=== PATIENT | male | born 1965 | race Caucasian/White ===

== ENCOUNTER → 2018-02-10 09:09 | Outpatient (CLI) | payer MEDICARE, MEDICAID, SELFPAY ==
[2018-02-10 12:08] LABS: Absolute Lymphocyte Count 1.87 X10^3/ul (0.83-4.51); Absolute Neutrophil Count 3.9 X10^3/uL (2.0-7.7); Basophil# 0.04 X10^3/uL; Basophil% 0.6 % (0-1); Eosinophil# 0.13 X10^3/uL; Eosinophils% 2.1 % (0-5); Hemoglobin 14.6 g/dl (13.0-16.5); Lymphocyte # 1.87 X10^3/ul (4.0); Lymphocyte % 29.5 % (19-41); Mean Corp Hgb Conc 33.2 g/gl (32-36); Mean Corpuscular Hgb 33.2 pg (27.0-32.0); Mean Platelet Vol. 11.8 fl (6.2-12.0); Monocyte# 0.39 X10^3/uL; Monocyte% 6.2 % (0-10); Neutrophil % 61.6 % (47-70); Platelet Count 189 K/mm3 (150-450); RBC Distribution Width SD 51.3 fl (35.1-43.9); White Blood Count 6.3 K/mm3 (4.4-11.0)
[2018-02-10 12:09] LABS: POSITIVE COUNT NO; POSITIVE DIFFERENTIAL NO; POSITIVE MORPHOLOGY NO
[2018-02-10 12:29] LABS: ALB/GLOB Ratio 1.2 RATIO (0.9-2.4); AST(SGOT) 73 U/L (15-37); Alanine Aminotransfer ALT/SGPT 66 U/L (16-61); Albumin, Serum 3.9 g/dL (3.2-5.0); Alkaline Phosphatase 203 U/L (45-117); BUN 5 mg/dL (7-18); BUN/Creat Ratio 6.8 RATIO (10-20); Chloride 109 mmol/L (98-107); Cholesterol 174 mg/dL (200); Creatinine, Serum 0.74 mg/dL (0.70-1.30); EST Glomerular Filtration Rate 119 mL/min (>60); Est Glom Filt Rate - Afr Amer 144 mL/min (>60); Globulin 3.3 g/dL (2.2-4.2); Glucose 85 mg/dL (74-106); Potassium 3.7 mmol/L (3.5-5.1); Protein, Total 7.2 g/dL (6.4-8.2); Sodium Level 144 mmol/L (136-145); Triglycerides 132 mg/dL
[2018-02-10 12:30] LABS: Anion Gap 8 (5-15); High Density Lipoprotein 71 mg/dL; Very Low Density Lipoprotein 26 mg/dL (5-40)
== END ==
PROVIDERS: Family Provider Family Medicine; PCP Family Medicine; Visit Provider Family Medicine
DX: I10 Essential (primary) hypertension (principal)
CPT/HCPCS: 36415; 80053; 80061; 85025

== ENCOUNTER → 2018-02-17 11:24 | Outpatient (CLI) | payer MEDICARE, MEDICAID, SELFPAY | PROVIDERS: Family Provider Family Medicine; PCP Family Medicine; Visit Provider Family Medicine | DX: Z79.899 Other long term (current) drug therapy (principal) | CPT/HCPCS: 36415 ==

== ENCOUNTER → 2018-05-19 11:14 | Outpatient (CLI) | payer MEDICARE, MEDICAID, SELFPAY ==
[2018-05-19 16:13] LABS: CRP < 2.90 mg/L (0.0-3.0)
[2018-05-19 16:20] LABS: Homocysteine 16.3 umol/L (3.2-10.7)
[2018-05-21 14:46] LABS: Lipoprotein A 548 nmol/L (<75)
== END ==
PROVIDERS: Family Provider Family Medicine; PCP Family Medicine; Visit Provider Family Medicine
DX: I10 Essential (primary) hypertension (principal); I73.9 Peripheral vascular disease, unspecified; T79.6XXS Traumatic ischemia of muscle, sequela
CPT/HCPCS: 36415; 83090; 83695; 86140

== ENCOUNTER → 2018-08-18 11:59 | Outpatient (CLI) | payer MEDICARE, MEDICAID, SELFPAY ==
[2018-08-18 15:56] LABS: Cholesterol 187 mg/dL (200); High Density Lipoprotein 78 mg/dL; Triglycerides 168 mg/dL; Very Low Density Lipoprotein 34 mg/dL (5-40)
[2018-08-18 16:17] LABS: Homocysteine 16.7 umol/L (3.2-10.7)
[2018-08-22 13:52] LABS: Lipoprotein A 404 nmol/L (<75)
[2018-08-23 11:31] LABS: ANTINUCLEAR ANTIBODIES DIRECT Negative (Negative)
== END ==
PROVIDERS: Family Provider Family Medicine; PCP Family Medicine; Visit Provider Family Medicine
DX: I73.9 Peripheral vascular disease, unspecified (principal); E78.89 Other lipoprotein metabolism disorders; E72.11 Homocystinuria; I73.00 Raynaud's syndrome without gangrene
CPT/HCPCS: 36415; 80061; 83090; 83695; 86038; 86225; 86235

== ENCOUNTER → 2018-12-08 08:24 | Outpatient (CLI) | payer MEDICARE, SELFPAY ==
[2018-12-08 12:32] LABS: Absolute Lymphocyte Count 1.48 X10^3/ul (0.83-4.51); Basophil# 0.05 X10^3/uL; Eosinophil# 0.06 X10^3/uL; Eosinophils% 1.2 % (0-5); Hematocrit 42.3 % (40-54); Hemoglobin 13.8 g/dl (13.0-16.5); Lymphocyte # 1.48 X10^3/ul (4.0); Lymphocyte % 29.5 % (19-41); Mean Corp Hgb Conc 32.6 g/gl (32-36); Mean Corpuscular Hgb 32.6 pg (27.0-32.0); Mean Platelet Vol. 11.9 fl (6.2-12.0); Monocyte# 0.48 X10^3/uL; Monocyte% 9.6 % (0-10); Neutrophil # 2.95 X10^3/uL (2.7-7.7); Neutrophil % 58.7 % (47-70); Platelet Count 188 K/mm3 (150-450); RBC Distribution Width CV 13.8 % (11.6-14.6); RBC Distribution Width SD 50.1 fl (35.1-43.9); Red Blood Count 4.23 M/mm3 (4.6-6.2)
[2018-12-08 12:33] LABS: POSITIVE COUNT NO; POSITIVE DIFFERENTIAL NO; POSITIVE MORPHOLOGY NO
[2018-12-08 12:50] LABS: Vitamin B12 550 pg/mL (211-911)
[2018-12-08 12:54] LABS: Homocysteine 13.7 umol/L (3.2-10.7)
[2018-12-08 14:38] LABS: ALB/GLOB Ratio 1.5 RATIO (0.9-2.4); AST(SGOT) 49 U/L (15-37); Alanine Aminotransfer ALT/SGPT 56 U/L (16-61); Albumin, Serum 4.1 g/dL (3.2-5.0); Alkaline Phosphatase 177 U/L (45-117); Anion Gap 10 (5-15); BUN 6 mg/dL (7-18); BUN/Creat Ratio 8.5 RATIO (10-20); CRP < 2.90 mg/L (0.0-3.0); Chloride 111 mmol/L (98-107); Cholesterol 202 mg/dL (200); Creatinine, Serum 0.71 mg/dL (0.70-1.30); EST Glomerular Filtration Rate 124 mL/min (>60); Est Glom Filt Rate - Afr Amer 150 mL/min (>60); Globulin 2.8 g/dL (2.2-4.2); Glucose 85 mg/dL (74-106); High Density Lipoprotein 84 mg/dL; Protein, Total 6.9 g/dL (6.4-8.2); Sodium Level 147 mmol/L (136-145); Triglycerides 237 mg/dL; Very Low Density Lipoprotein 47 mg/dL (5-40)
[2018-12-09 20:09] LABS: Lipoprotein A 483 nmol/L (<75)
== END ==
PROVIDERS: Family Provider Family Medicine; PCP Family Medicine; Visit Provider Family Medicine
DX: I73.9 Peripheral vascular disease, unspecified (principal); E78.89 Other lipoprotein metabolism disorders; I25.10 Atherosclerotic heart disease of native coronary artery without angina pectoris; I10 Essential (primary) hypertension; R74.8 Abnormal levels of other serum enzymes
CPT/HCPCS: 36415; 80053; 80061; 82607; 82746; 83090; 83695; 85025; 86140

== ENCOUNTER → 2019-12-23 08:53 | Outpatient (CLI) | payer MEDICARE, SELFPAY ==
[2019-12-23 12:33] LABS: International Normalized Ratio 2.3; Prothrombin Time (Protime)PT. 25.5 SECONDS (11.7-14.9)
== END ==
PROVIDERS: PCP Family Medicine; Visit Provider Family Medicine
DX: I25.5 Ischemic cardiomyopathy (principal); I25.2 Old myocardial infarction; Z79.01 Long term (current) use of anticoagulants
CPT/HCPCS: 36415; 85610

== ENCOUNTER 2020-01-24 09:57 | Outpatient (RCR) | payer MEDICARE, SELFPAY ==
[2020-01-10 12:18] LABS: Prothrombin Time (Protime)PT. 43.8 SECONDS (11.7-14.9)
[2020-01-10 13:41] LABS: International Normalized Ratio 4.6
[2020-01-18 10:03] LABS: International Normalized Ratio 3.4; Prothrombin Time (Protime)PT. 34.2 SECONDS (11.7-14.9)
[2020-01-24 12:08] LABS: International Normalized Ratio 1.9; Prothrombin Time (Protime)PT. 21.2 SECONDS (11.7-14.9)
== END 2020-02-03 18:00 | disposition home or self-care (01) ==
LOC: MTLAB 09:57
PROVIDERS: PCP Family Medicine; Referring Provider Family Medicine; Visit Provider Family Medicine
DX: I25.5 Ischemic cardiomyopathy (principal); I25.2 Old myocardial infarction
CPT/HCPCS: 36415; 85610

== ENCOUNTER → 2020-01-26 06:41 | Outpatient (CLI) | payer MEDICARE, SELFPAY ==
--- NOTE | 2020-01-26 09:17 | NEURO ---
NCS and/or EMG Patient Report Ordering Doctor: Bud Dave DATE OF SERVICE: 01/26/20 Kareem Sims is a 54-year-old male who presents for electrodiagnostic testing of the right lower limb. He reports numbness between the right knee and right ankle. He has a history of peripheral vascular disease. Electrodiagnostic findings: Right peroneal motor nerve demonstrates normal distal latency, amplitude and conduction velocity. Right tibial motor responses within normal limits. Normal tibial and peroneal F wave. H reflex borderline prolonged on the right side. Sensory responses are within normal limits. On needle EMG, all muscles tested in the right lower limb showed no evidence of denervation with normal motor unit action potentials. No denervation noted in the right lumbar paraspinals. Electrodiagnostic impression: This is a normal electrodiagnostic study in the right lower limb. There is no electrodiagnostic evidence for peripheral neuropathy or lumbosacral radiculopathy. If there are any further questions, please do not hesitate to contact me.
== END ==
LOC: PSN 06:44
PROVIDERS: PCP Family Medicine; Referring Provider Family Medicine; Visit Provider Family Medicine
DX: M79.604 Pain in right leg (principal)
CPT/HCPCS: 95886; 95910

== ENCOUNTER 2020-02-22 09:32 | Outpatient (RCR) | payer MEDICARE, SELFPAY ==
[2020-02-22 09:11] VITALS: BMI 24.5
[2020-02-22 12:53] LABS: International Normalized Ratio 1.4
== END 2020-02-22 18:00 | disposition home or self-care (01) ==
LOC: MTLAB 09:32
PROVIDERS: PCP Family Medicine; Referring Provider Family Medicine; Visit Provider Family Medicine
DX: I25.5 Ischemic cardiomyopathy (principal); I25.2 Old myocardial infarction
CPT/HCPCS: 36415; 85610

== ENCOUNTER → 2020-03-27 06:38 | Outpatient (CLI) | payer MEDICARE, SELFPAY ==
[2020-03-08 15:21] VITALS: BMI 23.6
--- NOTE | 2020-03-27 06:39 | ECHOD_ITS ---
Reason For Study: CAD Procedure This was a 2D Doppler, Color Flow transthoracic echocardiogram. Exam performed in department. Left Ventricle Normal LV size. The estimated ejection fraction is 53 %. No regional wall motion abnormalities noted. Right Ventricle Normal RV size. ICD or pacer leads identified within the right ventricle. Normal systolic function. Atria Normal left atrium. Normal right atrium. Mitral Valve Normal mitral valve. Mild (1+) eccentric mitral valve insufficiency. Tricuspid Valve Normal tricuspid valve. Aortic Valve Normal aortic valve. Pulmonic Valve Normal pulmonic valve. Great Vessels Normal aortic root. The pulmonary artery is normal size. Normal inferior vena cava. Pericardium/Pleural No pericardial effusion. MMode/2D Measurements & Calculations LVIDd: 4.4 cm IVSd: 1.1 cm LA dimension: 3.6 cm LVIDs: 2.6 cm LVPWd: 1.3 cm FS: 40.7 % LAV(MOD-bp): 37.7 ml LA A4 area: 15.4 cm2 RA A4 area: 11.3 cm2 LAV(MOD-bp) Indexed: 20.4 ml/m2 LAV(MOD-sp2): 35.9 ml LAV(MOD-sp4): 35.9 ml Time Measurements MV dec time: 0.24 sec Doppler Measurements & Calculations MV E max alli: 72.5 cm/sec Lat Peak E' Alli: 10.3 cm/sec Med Peak E' Alli: 9.2 cm/sec MV A max alli: 88.7 cm/sec E/E' lat: 7.1 E/E' med: 7.9 MV E/A: 0.82 MV V2 max: 90.6 cm/sec MV P1/2t max alli: 71.2 cm/sec Ao V2 max: 127.1 cm/sec MV max P.3 mmHg MV P1/2t: 67.3 msec Ao max P.5 mmHg MV V2 mean: 49.2 cm/sec MV dec slope: 309.6 cm/sec2 MV mean P.1 mmHg MVA(P1/2t): 3.3 cm2 MV V2 VTI: 21.4 cm LV V1 max: 121.9 cm/sec PA V2 max: 102.1 cm/sec LV V1 max P.9 mmHg Interpretation Summary Normal LV size. The estimated ejection fraction is 53 %. No regional wall motion abnormalities noted. The study was technically difficult. Ordering Physician: Ángel Marley Referring Physician: Ángel Marley Performed By: Basim Tierney RCS
--- NOTE | 2020-03-27 11:46 | STRESSREP ---
Stress Test Report Pharmacologic myocardial perfusion stress test. 54-year-old male with a history of ischemic cardiomyopathy, peripheral vascular disease, hypertension status post defibrillator implantation. Stress protocol: Resting EKG demonstrates normal sinus rhythm with a rate of 71 bpm normal intervals are noted resting blood pressure is 148/90 mmHg. 0.4 mg of regadenoson was infused per usual protocol followed by rapid intravenous saline flush injection continuous EKG monitoring was performed. The maximum heart rate attained was 106 bpm which was 63% of maximum predicted heart rate the maximum workload was 1 metabolic equivalent. Patient maintained sinus rhythm throughout the recording. The resting blood pressure was 148/90 with a final blood pressure 130/76 mmHg. Pharmacologic myocardial perfusion stress test. 11.9 mCi of technetium 99m sestamibi was injected at rest. 0.4 mg of regadenoson was infused per usual protocol peak infusion 34.2 mCi of technetium 99m sestamibi was injected stress images were obtained stress and rest images were reconstructed and compared in the short axis vertical long horizontal long axis. Gated images were also obtained per Perfusion SPECT analysis: Review of the images demonstrate normal perfusion noted in the septum anterior wall and lateral wall. There is reduced perfusion noted on the stress images in the inferior wall which improves on the resting images suggesting a moderate amount of inferior ischemia. Gated SPECT analysis: The gated ejection fraction is noted to be 63%. Conclusion: Abnormal pharmacologic myocardial perfusion stress test with evidence of inferior ischemia moderate. Preserved ejection fraction.
== END ==
LOC: CVS 06:39
PROVIDERS: PCP Family Medicine; Referring Provider Internal Medicine Cardiovascular Disease; Visit Provider Internal Medicine Cardiovascular Disease
DX: I25.10 Atherosclerotic heart disease of native coronary artery without angina pectoris (principal); E72.11 Homocystinuria; I73.9 Peripheral vascular disease, unspecified; I10 Essential (primary) hypertension; I47.2 Ventricular tachycardia; I25.5 Ischemic cardiomyopathy; Z95.5 Presence of coronary angioplasty implant and graft; Z95.810 Presence of automatic (implantable) cardiac defibrillator; Z79.01 Long term (current) use of anticoagulants
CPT/HCPCS: 78452; 93017; 93306; A9500; A4216; J2785

== ENCOUNTER 2020-03-30 06:42 | Day surgery (SDC) | payer MEDICARE, SELFPAY ==
[2020-03-08 15:21] VITALS: BMI 23.6
--- NOTE | 2020-03-29 08:53 | RAD_ITS ---
STUDY: X-RAY CHEST REASON FOR EXAM: Male, 54 years old. Abnormal stress, CAD, dyspnea TECHNIQUE: PA and lateral views of the chest. COMPARISON: None. FINDINGS: Satisfactory appearance of a left subclavian pacemaker The lungs are clear and expanded. There is no demonstrated pleural abnormality. There are scattered calcified granulomata. Normal size heart. Normal mediastinum and kelly. Normal visualized pulmonary arteries. Normal visualized aortic arch and descending thoracic aorta. Normal visualized thoracic spine. Normal visualized ribs, clavicles, and shoulders. There is no demonstrated abnormality of the visualized soft tissue structures of the upper abdomen. RAD/Chest PA and Lateral IMPRESSION: No acute pulmonary process Electronically Signed: Tunde Magallon MD at 9:04 EDT , Service support ,
[2020-03-29 09:17] LABS: Hematocrit 41.5 % (40-54); Hemoglobin 13.9 g/dL (13.0-16.5); Mean Corp Hgb Conc 33.5 g/dL (32-36); Mean Corpuscular Volume 95.6 fL (80-94); Mean Platelet Vol. 11.9 fl (6.2-12.0); Platelet Count 217 K/mm3 (150-450); RBC Distribution Width CV 15.9 % (11.6-14.6); RBC Distribution Width SD 56.6 fl (35.1-43.9); Red Blood Count 4.34 M/mm3 (4.6-6.2); White Blood Count 8.3 K/mm3 (4.4-11.0)
[2020-03-29 09:27] LABS: International Normalized Ratio 1.4; Prothrombin Time (Protime)PT. 16.5 SECONDS (11.7-14.9)
[2020-03-29 09:48] LABS: Anion Gap 7 (5-15); BUN 7 mg/dL (7-18); BUN/Creat Ratio 9.2 RATIO (10-20); Calcium,Total 9.3 mg/dL (8.5-10.1); Chloride 106 mmol/L (98-107); Creatinine, Serum 0.76 mg/dL (0.70-1.30); EST Glomerular Filtration Rate 114 mL/min (>60); Est Glom Filt Rate - Afr Amer 138 mL/min (>60); Glucose 102 mg/dL (74-106); Potassium 3.6 mmol/L (3.5-5.1); Sodium Level 140 mmol/L (136-145)
[2020-03-29 13:26] VITALS: BMI 23.6
[2020-03-30 06:51] LABS: Prothrombin Time Fingerstick 16.7 SEC (11.9-14.4)
--- NOTE | 2020-03-30 09:16 | CL.D_ITS ---
Patient Name: MYRIAM LISA Study Date: 03/30/2020 Performing: Ángel Marley MD Ht: 68.11 inches 173 cm : 1965 Wt: 154.32 lbs 70 kg Age: 54 Gender: male BSA: 1.83 PROCEDURE(S) PERFORMED [id number]/COR/LV CLINICAL PROFILE AND INDICATIONS Indications: Suspected CAD Heart Failure: None Stress/Imaging Stress Test w/SPECT MPI: Yes Result: Positive Intermediate RiskStress Test with SP ECT MPI: Positive Intermediate Risk CONCLUSIONS Severe triple-vessel disease involving a totally occluded mid left anterior descending artery, totall y occluded right coronary artery, high-grade circumflex artery disease and mildly reduced left ventri cular systolic function. RECOMMENDATIONS Surgery consult for coronary revascularization DESCRIPTION OF PROCEDURE The patient arrived to the procedure lab. The risks and benefits of the procedure as well as a full d escription of our services here and current unavailability of surgical backup were fully explained to the patient and/or their significant other prior to the catheterization. The Timeout was completed, verifying the correct patient and procedure. The patient's procedural site was prepped and draped in the usual fashion. Local anesthetic was given subcutaneously to right radial region with Lidocaine 2% . Using a modified Seldinger technique, arterial access was obtained via the right radial artery, a 6 Fr sheath was inserted. Left Coronary Artery selective angiography was performed in multiple views u sing a 5 Fr. 4.0 [place] catheter. Right Coronary Artery selective angiography was then performed in mu ltiple views using a 5 Fr. 4.0 [place] catheter. Left Ventriculography was performed in SOARES projection using a 5 Fr. [place] catheter. LV to AO pullback pressures were then recorded.The arterial sheath was pulled and a TR Band was applied for hemostasis. 11cc of air CORONARY ANGIOGRAPHY DOMINANCE: Right Dominant LEFT HEART ASSESSMENT Left Ventricular Ejection Fraction: by LV Gram 45 % Diaphragmatic Hypokinesis - Moderate LEFT MAIN: Angiographically normal LEFT ANTERIOR DESCENDING ARTERY: MID LAD: Previously placed stent is occluded CIRCUMFLEX ARTERY: OM 1: Mid - 85 % Stenosis RIGHT CORONARY ARTERY: PROX RCA: is occluded DISTAL RCA: is occluded COLLATERAL FLOW: Collateral flow from Left to Right COMPLICATIONS No Complications PROCEDURE MEDICATIONS Fentanyl 50 mcg IV Versed 1 mg IV Versed 1 mg IV Oxygen: 2 L/min via nasal cannula Benadryl 25 mg IV @ 03/30/2020 08:18:49 Heparin diluted in 23cc Heparinized saline. Patient given 10cc IA of this solution. 03/30/2020 08:37: 56 Solu-cortef 100 mg IV 03/30/2020 08:18:41 Verapamil 2.5mg, Ntg 100mcgs, 2000 units of Heparin diluted in 23cc Heparinized saline. Patient give n 10cc IA of this solution. 03/30/2020 08:37:56 SUMMARY OF HEMODYNAMIC DATA Time AIR REST ECG 07:19:10 AO 114/77 (94) SA 08:39:14 LV 135/16, 23 08:52:05 LV 132/16, 20 08:52:11 LV 120/19, 24 08:53:03 LVp 127/20, 22 08:53:16 AOp 144/91 (114) 08:53:21 ECG 09:06:59 Signed By Ángel Marley MD On 03/30/2020 9:15:24 AM Ángel Marley MD
== END 2020-03-30 10:51 | disposition home or self-care (01) ==
PROVIDERS: PCP Family Medicine; Referring Provider Internal Medicine Cardiovascular Disease; Visit Provider Internal Medicine Cardiovascular Disease
DX: I25.5 Ischemic cardiomyopathy (principal); I25.10 Atherosclerotic heart disease of native coronary artery without angina pectoris; I25.82 Chronic total occlusion of coronary artery; I25.2 Old myocardial infarction; I10 Essential (primary) hypertension; I73.9 Peripheral vascular disease, unspecified; E72.11 Homocystinuria; M19.90 Unspecified osteoarthritis, unspecified site; K21.9 Gastro-esophageal reflux disease without esophagitis; Z95.810 Presence of automatic (implantable) cardiac defibrillator; Z79.01 Long term (current) use of anticoagulants; Z79.82 Long term (current) use of aspirin; Z79.899 Other long term (current) drug therapy; Z79.02 Long term (current) use of antithrombotics/antiplatelets; Z86.718 Personal history of other venous thrombosis and embolism; Z95.5 Presence of coronary angioplasty implant and graft; Z87.891 Personal history of nicotine dependence
CPT/HCPCS: 36415; 36416; 71046; 80048; 85027; 85610; 93458; 99152; 99153; C1769; C1894; Q9967

== ENCOUNTER 2021-01-20 08:18 | Emergency (ER) | payer OTHER, MEDICARE, SELFPAY ==
[2020-08-30 15:25] VITALS: BMI 23.6
[2021-01-20 08:20] VITALS: BP 121/74; PULSE 98; RESP 17; TEMP 36.6; O2SAT 93; BMI 25.8
--- NOTE | 2021-01-20 08:35 | RAD_ITS ---
STUDY: X-RAY - RIGHT HAND REASON FOR EXAM: Male, 55 years old. Injury/Pain TECHNIQUE: 3 view(s) of the hand. COMPARISON: None. FINDINGS: Normal radiocarpal articulation. Normal distal radioulnar joint. Normal visualized carpal bones. Normal carpal articulations Normal carpometacarpal articulation of the thumb. Normal second through fifth carpometacarpal joints. Normal metacarpi. Normal metacarpophalangeal joint of the thumb. Normal interphalangeal joint of the thumb. Normal proximal and distal phalanges of the thumb. Normal metacarpophalangeal joints of the second through fifth fingers. Normal proximal and distal interphalangeal joints of the second through fifth fingers. Normal phalanges of the second through fifth fingers. The soft tissue structures are unremarkable. RAD/Hand Min 3 Views IMPRESSION: Normal x-ray examination of the hand. Electronically Signed: Remy Mc MD at 9:13 EDT Tel , Service support ,
--- NOTE | 2021-01-20 08:44 | ED.DCSUM_ITS ---
- ER Visit Summary Date of Service: 01/20/21 Chief Complaint: Injury to right hand History of Present Illness: The patient is a [address] Dave. He is right-hand dominant. He reports that yesterday he was walking with his cane when he lost his balance and fell landing on a closed right fist. He denies any blow to the head or loss of consciousness. He is on Eliquis. He denies headache and is adamant that he did not even hit his head. He denies neck, back, shoulder, wrist, or hip pain. Patient reports that he is a sharp pain to his right hand is 9-10 with movement and 4 out of 10 at rest after oxycodone. He denies any paresthesias distally. Physical Examination: Vitals: Stable. Afebrile. Neck: No vertebral tenderness. Full ROM without difficulty. Cleared by NEXUS criteria. Back: No vertebral tenderness. General: A&O x 3. NAD. Cardiovascular exam: Regular rate and rhythm, no murmur, rub or gallop. Respiratory exam: Chest nontender. No crepitus. Clear to auscultation bilaterally. No wheezes or stridor. Abdominal exam: Soft, nontender, nondistended, normal bowel sounds. No pain in RUQ or LUQ specifically. No peritoneal signs. Extremity: Moderate amount of soft tissue swelling to the back of his right hand. He has severe tenderness palpation over the head of the fourth metacarpal and mild tenderness palpation is diffuse over the carpal bones. No pain with axial load of his thumb. He is neurovascular intact distal to this.. Test Results: Right hand x-ray shows no acute disease. Emergency Department Course and Treatment: Patient is resting comfortably and refused pain medications. He was placed in a Velcro splint. Treatment Plan: Patient has pain medication at home does not want or need any further pain medication. He will be discharged instructions to follow-up Dr. Dave in 1 week if not improving. Return to the emergency department for any worsening symptoms. Disposition: To home in improved and stable condition. Impression: 1. Right hand contusion. This note was generated with Yerdleation software. It may contain incorrect words, spelling, and punctuation that were not noted in review of the chart prior to signing ED Disposition - Plan for ED Patient: Instructions: ED Hand Contusion Referrals: Bud Dave DO [Primary Care Provider] - 1 Week if not improving
[2021-01-20 09:30] VITALS: BP 121/74; PULSE 98; RESP 18
== END 2021-01-20 09:31 | disposition home or self-care (01) ==
LOC: ED 09:05
PROVIDERS: Emergency Provider Emergency Medicine; PCP Family Medicine
DX: S60.221A Contusion of right hand, initial encounter (principal); I25.10 Atherosclerotic heart disease of native coronary artery without angina pectoris; W19.XXXA Unspecified fall, initial encounter; Y93.01 Activity, walking, marching and hiking; Z79.01 Long term (current) use of anticoagulants; Z87.891 Personal history of nicotine dependence
CPT/HCPCS: 73130; 99283

== ENCOUNTER 2021-03-07 18:20 | Emergency (ER) | payer OTHER, MEDICARE, SELFPAY ==
[2021-03-07 18:21] VITALS: BP 135/73; PULSE 107; RESP 18; TEMP 36.4; O2SAT 96; BMI 25.0
--- NOTE | 2021-03-07 18:52 | EKG12_ITS ---
Test Reason : DYSRHYTHMIA Blood Pressure : / mmHG Vent. Rate : 101 BPM Atrial Rate : 101 BPM P-R Int : 142 ms QRS Dur : 096 ms QT Int : 348 ms P-R-T Axes : 021 017 043 degrees QTc Int : 451 ms Sinus tachycardia Otherwise normal ECG Confirmed by JAYDE MCQUEEN, ORION ([id number]), publications editor JONH CALHOUN ([id number]) on 03/08/2021 12:57:22 PM Referred By: RUBA Confirmed By:EILEEN DONOHUE MD
--- NOTE | 2021-03-07 18:53 | RAD_ITS ---
INDICATION: sob EXAMINATION/TECHNIQUE: X-RAY - XR Chest 1 View COMPARISON: 03/29/2020. FINDINGS: Left-sided cardiac device. Median sternotomy wires present. Scattered calcified granulomas. The lungs are otherwise clear. The cardiomediastinal silhouette is unremarkable. No pleural effusion or pneumothorax. No acute osseous abnormalities. RAD/Chest 1 View (Portable) IMPRESSION: No acute radiographic abnormalities. Electronically Signed: Lexx Gray MD at 19:30 EDT Tel , Service support ,
--- NOTE | 2021-03-07 18:55 | US_ITS ---
STUDY: VENOUS DOPPLER ULTRASOUND - LEFT LOWER EXTREMITY REASON FOR EXAM: Male, 55 years old. LT LOWER LEG PAIN AND SWELLING TECHNIQUE: Ultrasound evaluation of the deep vein system to include toussaint-scale imaging and compression was performed. Toussaint-scale imaging and Doppler sonographic evaluation, including duplex spectral analysis and qualitative color flow sonography, was performed. COMPARISON: None. FINDINGS: Common Femoral Vein: Normal compression, spontaneity and augmentation. Normal color Doppler. Common Femoral Vein/Greater Saphenous Junction: Normal compression with no internal echoes. Deep Femoral Vein: Not visualized Femoral Proximal: Normal compression Femoral Middle: Normal compression, spontaneity and augmentation. Normal color Doppler. Femoral Distal: Normal compression Popliteal Vein: Normal compression, spontaneity and augmentation. Normal color Doppler. Posterior Tibial Vein: Normal compression Peroneal Vein: Normal compression Positive for thrombosis of the upper to mid lesser saphenous vein of the calf. US/Venous Duplex Imag/Limited/Uni IMPRESSION: Left lower extremity venous DOPPLER exam negative for deep venous thrombosis. Positive for thrombosis of the upper to mid lesser saphenous vein of the calf. Electronically Signed: Karen Laureano MD at 19:54 EDT , Service support ,
[2021-03-07 19:03] LABS: Absolute Lymphocyte Count 1.59 X10^3/uL (0.83-4.51); Absolute Neutrophil Count 11.9 X10^3/uL (2.0-7.7); Basophil# 0.08 X10^3/uL; Basophil% 0.5 % (0-1); Eosinophil# 0.18 X10^3/uL; Eosinophils% 1.2 % (0-5); Hematocrit 31.5 % (40-54); Hemoglobin 9.1 g/dL (13.0-16.5); Lymphocyte # 1.59 X10^3/ul (0.83-4.51); Lymphocyte % 10.8 % (19-41); Mean Corp Hgb Conc 28.9 g/dL (32-36); Mean Corpuscular Hgb 20.7 pg (27.0-32.0); Mean Corpuscular Volume 71.6 fL (80-94); Mean Platelet Vol. 10.4 fl (6.2-12.0); Monocyte# 0.95 X10^3/uL; Monocyte% 6.4 % (0-10); NRBC Flagged by Analyzer 0 % (0-5); Neutrophil # 11.88 X10^3/uL (2.7-7.7); Neutrophil % 80.7 % (47-70); Platelet Count 257 K/mm3 (150-450); RBC Distribution Width CV 19.5 % (11.6-14.6); RBC Distribution Width SD 49.2 fl (35.1-43.9); White Blood Count 14.7 K/mm3 (4.4-11.0)
[2021-03-07 19:18] LABS: Anion Gap 9 (5-15); BUN 6 mg/dL (7-18); BUN/Creat Ratio 10.1 RATIO (10-20); Calcium,Total 8.9 mg/dL (8.5-10.1); Chloride 107 mmol/L (98-107); EST Glomerular Filtration Rate 151 mL/min (>60); Est Glom Filt Rate - Afr Amer 182 mL/min (>60); Estimated Creatinine Clearance 137.75 ml/min; Glucose 90 mg/dL (74-106); Potassium 3.1 mmol/L (3.5-5.1); Sodium Level 141 mmol/L (136-145)
[2021-03-07 19:34] VITALS: PULSE 106; RESP 18; O2SAT 92
--- NOTE | 2021-03-07 21:03 | CT_ITS ---
STUDY: CTA CHEST REASON FOR EXAM: Male, 55 years old. sob RADIATION DOSAGE (If Supplied By Facility): CTDIvol = ( 11.42 ) mGy, DLP = ( ) mGycm TECHNIQUE: The examination was performed with the intravenous administration of IV 100mL Isovue-370. Post-processing of the angiographic images was performed, with multiplanar reformation and 3D reconstruction. Individualized dose optimization techniques were used for this CT. COMPARISON: Chest radiograph 03/07/2021 FINDINGS: Normal enhancement of the main pulmonary artery and right and left pulmonary arteries. Normal enhancement of the bilateral peripheral pulmonary arteries. There is no demonstrated pulmonary embolism. Mild elongation and mild to moderate plaque of the aorta without aneurysm or dissection. Normal cardiac size. Status post prior midline sternotomy. Right ventricular defibrillator lead remains in good position. Small calcified mediastinal lymph nodes. Small calcified hilar lymph nodes. Bullous and centrilobular changes of the upper and midlung zones. Calcified pleural plaque anterior right lung and surface of the right diaphragm.. Scattered pulmonary granulomata. Mild dependent lower lobe atelectasis. Negative for pleural effusion. Normal chest wall structures. Normal osseous structures. No acute findings in the uppermost abdomen. CT/CTA Chest W/WO Contrast IMPRESSION: Negative for pulmonary embolus. Mild atherosclerotic changes of the aorta without aneurysm or dissection. Normal cardiac size without pericardial effusion. Coronary calcifications present. Right ventricular defibrillator lead remains in good position. Status post midline sternotomy. Stigmata of old granulomatous disease with small calcified lymph nodes of the mediastinum and kelly and scattered pulmonary granulomata. Bullous and centrilobular changes of the upper and midlung zones. Calcified pleural plaque on the right. Mild dependent lower lobe atelectatic changes without pleural effusion. No acute osseous findings. No acute findings in the uppermost abdomen. Electronically Signed: Karen Laureano MD at 21:52 EDT , Service support ,
[2021-03-07 21:04] VITALS: PULSE 97; RESP 18; O2SAT 88
[2021-03-07 21:05] VITALS: PULSE 79; RESP 18; O2SAT 95
[2021-03-07] MEDS: Potassium Chloride Oral Tablet 20 MEQ 40 MEQ PO (21:11)
[2021-03-07] MEDS: Furosemide 40 MG Tablet PO (21:12)
--- NOTE | 2021-03-07 21:28 | EX.ED.DYSGE1 ---
HPI History of Present Illness Chief Complaint: Edema Informant: patient Onset/Context/Timing Onset: Weeks Context: Gradual Onset Current Severity: Moderate Maximum Severity: Moderate Narrative Narrative: Patient presents secondary to left lower extremity edema for the past 2 weeks. Today he felt somewhat short of breath. He denies chest pain. Patient has had a right lower extremity amputation. He denies known history of CHF. He states his leg swelling does get better when he elevates his foot at night but is not completely resolved. [facility] Medical History Arthritis Atherosclerosis of coronary artery without angina pectoris Blood in stool Diarrhea Elevated LFTs Essential (primary) hypertension GERD (gastroesophageal reflux disease) Hemorrhoids History of blood clots Hyperhomocysteinemia Ischemia of right lower extremity Ischemic cardiomyopathy Peripheral vascular disease of extremity with claudication Postoperative atrial fibrillation (04/30/20) Recurrent syncope Ventricular tachycardia Home Medications aspirin 81 mg tablet,delayed release 81 mg PO DAILY 02/22/20 [History Last Taken 03/30/20] atorvastatin 80 mg tablet 80 mg PO DAILY 02/22/20 [History Last Taken Unknown] bupropion HCl 150 mg tablet,12 hr sustained-release 150 mg PO DAILY 02/22/20 [History Last Taken Unknown] cilostazol 100 mg tablet 100 mg PO BID 02/22/20 [History Last Taken Unknown] gabapentin 400 mg capsule 600 mg PO TID 02/22/20 [History Last Taken Unknown] diltiazem HCl 90 mg tablet 90 mg PO TID 05/20/20 [History Last Taken Unknown] multivitamin 15 ml PO DAILY ml 05/20/20 [History Last Taken Unknown] omeprazole 20 mg capsule,delayed release 20 mg PO DAILY 05/20/20 [History Last Taken Unknown] apixaban 5 mg tablet 5 mg PO BID 08/30/20 [History Last Taken Unknown] furosemide [Lasix] 40 mg PO DAILY #3 tab 03/07/21 [Rx Last Taken Unknown] oxycodone-acetaminophen 1 tab PO TID PRN PRN 03/07/21 [History Last Taken Unknown] potassium chloride 40 meq PO DAILY #6 tab 03/07/21 [Rx Last Taken Unknown] Allergy/AdvReac Type Severity Reaction Status Date / Time shellfish derived Allergy Severe Swelling Verified 03/07/21 18:56 lorazepam [From Ativan] Allergy NEEDS Verified 03/07/21 18:56 FOLLOW-UP Family History Mother Heart disease Cancer Daughter Hyperhomocysteinemia Daughter Hyperhomocysteinemia Daughter Hyperhomocysteinemia Surgical History H/O coronary artery bypass surgery (04/27/20) History of coronary artery stent placement History of femoropopliteal bypass History of implantable cardiac defibrillator (ICD) (06/19/11) History of left heart catheterization (03/30/20) History of right above knee amputation (05/27/20) History of right below knee amputation (05/17/20) Status post femoral-popliteal bypass surgery Social History Smoking Status: Current some day smoker tobacco type: cigarettes alcohol intake: current alcohol intake frequency: a few times a week Alcohol type: hard liquor substance use type: does not use ROS ROS ED Constitutional Constitutional ED: Denies chills or fever(s) Eyes Eyes: Denies change in vision ENT ENT ED: Denies sore throat Cardiovascular Cardiovascular: Denies chest pain Respiratory/Chest Respiratory/Chest: Reports dyspnea; Denies cough Gastrointestinal Gastrointestinal: Denies abdominal pain, diarrhea, nausea or vomiting Genitourinary Genitourinary ED: Denies dysuria Musculoskeletal Musculoskeletal: Reports other Details: Left leg edema ; Denies back pain Integumentary Denies rash Neurologic Neurologic: Denies headache(s) or weakness Psychiatric Psychiatric: Denies anxiety or depression Endocrine Endocrinology: Denies polydipsia or polyuria Allergic/Immunologic Allergic/Immunologic ED: Denies urticaria EXAM Physical Exam Const Vital Signs: 03/07/21 18:21 03/07/21 19:34 03/07/21 21:04 Temperature 97.6 F L Temperature Source Temporal Pulse Rate 107 H 106 H 97 Respiratory Rate 18 18 18 Blood Pressure 135/73 H Blood Pressure Mean 93 Pulse Ox 96 92 88 Oxygen Delivery Method Room Air Room Air Room Air Oxygen Flow Rate (L/min) 03/07/21 21:05 03/07/21 22:04 Temperature Temperature Source Pulse Rate 79 Respiratory Rate 18 16 Blood Pressure Blood Pressure Mean Pulse Ox 95 94 Oxygen Delivery Method Room Air Nasal Cannula Oxygen Flow Rate (L/min) 1 Positive well nourished and well developed General Appearance ED: well developed HEENT Reports normocephalic and head/scalp atraumatic Eyes PERRL and EOMs intact bilaterally Neck supple Chest Wall inspection of chest normal and palpation of chest normal Resp normal respiratory effort and clear to auscultation bilaterally Cardio regular rate and regular rhythm GI normal to inspection, nondistended, normoactive bowel sounds Palpation: soft Back/Spine no CVA tenderness Extremity Extremity Narrative: 3+ left lower extremity edema. No skin lesions noted. Right lower extremity amputation noted. Neuro oriented x3 and no sensory deficits noted Sensorium / Orientation: alert Motor Exam: strength 5/5 throughout Psych mental status grossly normal Skin no rashes or lesions noted MDM MDM MDM Narrative Medical decision making narrative: EKG, chest x-ray, lab work is obtained. Venous ultrasound of the left lower extremity is obtained. Lab Data Attestation: I reviewed the patient's lab results. Labs: Laboratory Results - last 24 hr 03/07/21 03/07/21 03/07/21 18:41 18:41 18:41 WBC 14.7 H RBC 4.40 L Hgb 9.1 L Hct 31.5 L MCV 71.6 L MCH 20.7 L MCHC 28.9 L RDW Std Deviation 49.2 H RDW Coeff of Valeria 19.5 H Plt Count 257 MPV 10.4 Immature Gran % (Auto) 0.400 Neut % (Auto) 80.7 H Lymph % (Auto) 10.8 L Mcduffie % (Auto) 6.4 Eos % (Auto) 1.2 Baso % (Auto) 0.5 Absolute Neuts (auto) 11.9 H Absolute Lymphs (auto) 1.59 Nucleated RBC % 0 Sodium 141 Potassium 3.1 L Chloride 107 Carbon Dioxide 25.0 Anion Gap 9 BUN 6 L Creatinine 0.60 L Estim Creat Clear Calc 137.75 Est GFR (MDRD) Af Amer 182 Est GFR (MDRD) Non-Af 151 BUN/Creatinine Ratio 10.1 Glucose 90 Calcium 8.9 Troponin I < 0.015 B-Natriuretic Peptide 38.0 Radiography Chest X-Ray - ED: 1 View, Read by ED Physician, Normal, Heart, Lungs and Mediastinum Diagnostic Testing: Radiology Impression Chest X-Ray 06/02/21 18:53 IMPRESSION: No acute radiographic abnormalities. Electronically Signed: Lexx Gray MD at 19:30 EDT Tel , Service support , Venous Duplex 03/07/21 18:55 IMPRESSION: Left lower extremity venous DOPPLER exam negative for deep venous thrombosis. Positive for thrombosis of the upper to mid lesser saphenous vein of the calf. Electronically Signed: Karen Laureano MD at 19:54 EDT , Service support , Chest CTA 03/07/21 21:03 IMPRESSION: Negative for pulmonary embolus. Mild atherosclerotic changes of the aorta without aneurysm or dissection. Normal cardiac size without pericardial effusion. Coronary calcifications present. Right ventricular defibrillator lead remains in good position. Status post midline sternotomy. Stigmata of old granulomatous disease with small calcified lymph nodes of the mediastinum and kelly and scattered pulmonary granulomata. Bullous and centrilobular changes of the upper and midlung zones. Calcified pleural plaque on the right. Mild dependent lower lobe atelectatic changes without pleural effusion. No acute osseous findings. No acute findings in the uppermost abdomen. Electronically Signed: Karen Laureano MD at 21:52 EDT , Service support , EKG Initial EKG: Attestation: I personally reviewed and interpreted this EKG as follows: Interpretation: Sinus Tachycardia (Sinus tach at 101. No acute ischemia.) Treatment and Re-Evaluation Comments:: Venous ultrasound reveals no evidence of DVT but patient does have a superficial clot in his lower leg. He did advise that he missed a few days of his Eliquis as he was waiting for the pharmacy to get it filled for him. Blood work is unremarkable. Chest x-ray shows no obvious infiltrate or effusion. Patient did drop his O2 sats to 88% on room air with good waveform for short time period. He was placed on nasal cannula and sent for CTA of his chest. CT is unremarkable. Patient's been able to be taken off of oxygen and is currently satting 94% on room air. He was given a dose of p.o. Lasix as well as potassium replacement. He will be given 3 additional days of these for home. He will contact his doctor for close follow-up. Discharge Plan Triage Chief Complaint: Edema ED Provider: Nissa Jaramillo Dx/Rx/DC Orders Clinical Impression: Leg edema, left, Acute hypokalemia, Superficial thrombophlebitis of left leg Instructions: ED Hypokalemia, ED Peripheral Edema, Unilateral, ED Thrombophlebitis, Superficial Prescriptions: New furosemide [Lasix] 40 mg tablet 40 mg PO DAILY Qty: 3 RF: 0 potassium chloride 20 mEq tablet extended release 40 meq PO DAILY Qty: 6 RF: 0 No Action atorvastatin 80 mg tablet 80 mg PO DAILY RF: 0 cilostazol 100 mg tablet 100 mg PO BID RF: 0 bupropion HCl 150 mg tablet sustained-release 12 hr 150 mg PO DAILY RF: 0 gabapentin 400 mg capsule 600 mg PO TID RF: 0 aspirin [Adult Aspirin Regimen] 81 mg tablet,delayed release (DR/EC) 81 mg PO DAILY RF: 0 diltiazem HCl 90 mg tablet 90 mg PO TID RF: 0 multivitamin liquid 15 ml PO DAILY RF: 0 omeprazole 20 mg capsule,delayed release(DR/EC) 20 mg PO DAILY RF: 0 apixaban 5 mg tablet 5 mg PO BID RF: 0 oxycodone-acetaminophen 10-325 mg tablet 1 tab PO TID PRN PRN (Reason: PAIN) RF: 0 Primary Care Provider: Bud Dave Referrals: Bud Dave, [Primary Care Provider] - 3-5 Days Disposition Disposition: Home, self care
[2021-03-07 22:04] VITALS: RESP 16; O2SAT 94
[2021-03-07 22:37] VITALS: BP 139/85; PULSE 67; RESP 15; O2SAT 94
== END 2021-03-07 22:37 | disposition home or self-care (01) ==
PROVIDERS: Emergency Provider Emergency Medicine; PCP Family Medicine
DX: R60.0 Localized edema (principal); E87.6 Hypokalemia; I80.02 Phlebitis and thrombophlebitis of superficial vessels of left lower extremity; Z79.899 Other long term (current) drug therapy; Z79.82 Long term (current) use of aspirin
CPT/HCPCS: 71045; 71275; 80048; 83880; 84484; 85025; 93005; 93971; 99284; Q9967; A4216

== ENCOUNTER → 2021-04-12 16:38 | Outpatient (CLI) | payer OTHER, MEDICARE, SELFPAY ==
[2021-04-12 17:44] LABS: Absolute Lymphocyte Count 2.43 X10^3/uL (0.83-4.51); Absolute Neutrophil Count 4.7 X10^3/uL (2.0-7.7); Basophil# 0.09 X10^3/uL; Basophil% 1.1 % (0-1); Eosinophil# 0.24 X10^3/uL; Hematocrit 35.4 % (40-54); Hemoglobin 10.1 g/dL (13.0-16.5); Lymphocyte # 2.43 X10^3/ul (0.83-4.51); Lymphocyte % 30.2 % (19-41); Mean Corp Hgb Conc 28.5 g/dL (32-36); Mean Corpuscular Hgb 20.7 pg (27.0-32.0); Mean Corpuscular Volume 72.4 fL (80-94); Mean Platelet Vol. 11.3 fl (6.2-12.0); Monocyte# 0.56 X10^3/uL; NRBC Flagged by Analyzer 0 % (0-5); Neutrophil % 58.3 % (47-70); Platelet Count 373 K/mm3 (150-450); RBC Distribution Width CV 19.4 % (11.6-14.6); RBC Distribution Width SD 49.1 fl (35.1-43.9); Red Blood Count 4.89 M/mm3 (4.6-6.2); White Blood Count 8.1 K/mm3 (4.4-11.0)
[2021-04-12 18:11] LABS: Anion Gap 7 (5-15); BUN 7 mg/dL (7-18); BUN/Creat Ratio 9.3 RATIO (10-20); Chloride 107 mmol/L (98-107); Creatinine, Serum 0.75 mg/dL (0.70-1.30); EST Glomerular Filtration Rate 115 mL/min (>60); Est Glom Filt Rate - Afr Amer 140 mL/min (>60); Ferritin 7 ng/mL (26-388); Glucose 90 mg/dL (74-106); Iron 15 ug/dL (65-175); Potassium 3.7 mmol/L (3.5-5.1); Sodium Level 139 mmol/L (136-145)
== END ==
PROVIDERS: PCP Family Medicine; Referring Provider Family Medicine; Visit Provider Family Medicine
DX: D64.9 Anemia, unspecified (principal); I10 Essential (primary) hypertension
CPT/HCPCS: 36415; 80048; 82728; 83540; 85025

== ENCOUNTER 2021-05-31 07:07 | Day surgery (SDC) | payer OTHER, MEDICARE, SELFPAY ==
[2021-05-08 09:05] VITALS: BMI 23.1
[2021-05-31] VITALS (7 sets, daily range): BP systolic 132–163; BP diastolic 97–107; PULSE 80–91; RESP 16–18; TEMP 36.1–37.1; O2SAT 96; BMI 22.8
--- NOTE | 2021-05-31 07:55 | PCM.HP.BLA ---
History and Physical Acct:[id number]: MYRIAM LSIA IVRep #:[id number] Provider:Prieto Carmen/Sex: 55/M [facility] Vital Signs 05/08/21 08:45 05/08/21 09:05 Height 5 ft 7 in Weight: 148 lb BMI 25.0 23.1 BP 123/77 H Blood Pressure Location Rt brachial Position Sitting Respiration 16 Intake Visit Reasons: CSCOPE, WEIGHT LOSS Chief Complaint: c-scope consult [employer] Developer Required: No Is patient in pain?: No Allergies shellfish derived Allergy (Severe, Verified 05/08/21 09:07) Swelling lorazepam [From Ativan] Allergy (Verified 05/08/21 09:07) NEEDS FOLLOW-UP Medications aspirin 81 mg tablet,delayed release 81 mg PO DAILY 02/22/20 [History Confirmed 05/08/21] atorvastatin 80 mg tablet 80 mg PO DAILY 02/22/20 [History Confirmed 05/08/21] bupropion HCl 150 mg tablet,12 hr sustained-release 150 mg PO DAILY 02/22/20 [History Confirmed 05/08/21] cilostazol 100 mg tablet 100 mg PO BID 02/22/20 [History Confirmed 05/08/21] gabapentin 400 mg capsule 600 mg PO TID 02/22/20 [History Confirmed 05/08/21] diltiazem HCl 90 mg tablet 90 mg PO TID 05/20/20 [History Confirmed 05/08/21] multivitamin 15 ml PO DAILY ml 05/20/20 [History Confirmed 05/08/21] omeprazole 20 mg capsule,delayed release 20 mg PO DAILY 05/20/20 [History Confirmed 05/08/21] apixaban 5 mg tablet 5 mg PO BID 08/30/20 [History Confirmed 05/08/21] furosemide [Lasix] 40 mg PO DAILY #3 tab 03/07/21 [Rx Confirmed 05/08/21] oxycodone-acetaminophen 1 tab PO TID PRN PRN 03/07/21 [History Confirmed 05/08/21] potassium chloride 40 meq PO DAILY #6 tab 03/07/21 [Rx Confirmed 05/08/21] PFSH Medical History Arthritis Atherosclerosis of coronary artery without angina pectoris Blood in stool Diarrhea Elevated LFTs Essential (primary) hypertension GERD (gastroesophageal reflux disease) Hemorrhoids History of blood clots Hyperhomocysteinemia Ischemia of right lower extremity Ischemic cardiomyopathy Peripheral vascular disease of extremity with claudication Postoperative atrial fibrillation (04/30/20) Recurrent syncope Ventricular tachycardia Surgical History H/O coronary artery bypass surgery (04/27/20) History of coronary artery stent placement History of femoropopliteal bypass History of implantable cardiac defibrillator (ICD) (06/19/11) History of left heart catheterization (03/30/20) History of right above knee amputation (05/27/20) History of right below knee amputation (05/17/20) Status post femoral-popliteal bypass surgery Family History Mother Heart disease Cancer Daughter Hyperhomocysteinemia Daughter Hyperhomocysteinemia Daughter Hyperhomocysteinemia Social History Smoking Status: Current some day smoker tobacco type: cigarettes alcohol intake: current alcohol intake frequency: a few times a week Alcohol type: hard liquor substance use type: does not use HPI HPI HPI: MYRIAM LISA, is a 55 M who presents to the office today with need to schedule diagnostic colonoscopy. They are referred for surgical consultation from Dr. Dave after noting a significant weight loss (approximately 26 pounds in the past year) and iron deficiency anemia. According to Dr. Daev's notes and Mr. Lisa's history, the patient was originally scheduled for colonoscopy in 2019, however, during preprocedure cardiac evaluation he was submitted for cardiac catheterization which uncovered critical coronary stenosis requiring CABG x3 in March 2020. Mr. Phillips states that he was then discharged to home and spent only 3 days at home before he developed ischemic complications to his right lower extremity (previous revascularization via lower extremity bypass in 2014). These ischemic complications ultimately resulted in a right above-knee amputation in May 2020. Patient has had prior colonoscopy which she states was approximately 15 to 20 years ago. The results of the scope are unknown and patient cannot recall any specific findings or follow-up instruction. Patient has no personal history of cancer inflammatory bowel disease, or diverticulitis. Patient has no family history of colon cancer, inflammatory bowel disease, or diverticulitis?but admits the maternal side of this history is somewhat unknown. They describe their bowel habits as frequent loose stools which have been present for the last 10 to 12 years. He also endorses occasional bright red blood per rectum. He attributes this to a history of hemorrhoid disease. He previously underwent excisional hemorrhoidectomy but had recurrence of this disease within 1 year. They do not regularly take fiber supplements. Patient has a history of heartburn/acid reflux. He states this was previously severe but is now well controlled with the use of Nexium and minimizing intake of spicy food. Mr. Lisa states that he overall feels better since his CABG procedure in March 2020. However he does relate occasional fatigue and lightheadedness. He also complains of significant anxiety when he attempts to lie down in the evenings. He states it has been sometime since he has been able to lie flat. Mr. Lisa has a intracardiac defibrillator which was due for a regular maintenance check in February, however he was not able to keep this appointment. He remains anticoagulated with daily apixaban. Patient continues as a every day smoker. He states that he remains on edge/frustrated with ongoing problems related to adapting to his new right lower extremity prosthesis. He believes cessation would be possible if his also joined him in this effort. ROS General General: Yes weight change and fatigue; No appetite, colon cancer, breast cancer or weakness HEENT HEENT: No difficulty swallowing, eye injury, eye surgery, swollen glands or hoarseness Endo Endocrine: No thyroid disease, diabetes mellitus, thyroid cancer, Hair loss, heat intolerance or cold intolerance Skin Skin: No rash or changing moles Breast Breast: No left breast lump, right breast lump, nipple discharge, breast pain, abnormal mammogram, abnormal US or breast enlargement Musc Musculoskeletal: Yes arthritis; No back problems, rheumatoid arthritis, gout or joint pain Cardio Cardiovascular: Yes pacemaker, heart disease, high blood pressure, heart attack and heart stent; No murmur, atrial fibrillation, palpitations, shortness of breat with exertion or chest pain Psych Psychiatric: Yes depression and anxiety; No hearing voices Resp Respiratory: No shortness of breath, No sleep apnea, No cough, No COPD, No asthma, No emphysema and No wheezing Gastro Gastrointestinal: Yes abdominal pain, Yes nausea or vomiting, Yes diarrhea, No constipation, Yes blood in stool, Yes acid reflux, Yes hemorrhoids, No ulcers, No gallbladder problem and No black,tarry stools Eladio Hematologic: Yes blood thinners, No blood disorders, No bleeding, No anemia and Yes blood clots Neuro Neurologic: No system reviewed and no additional complaints, except as documented, No as per HPI, No abnormal gait, No abnormal hearing, No abnormal movements, No abnormal speech, No behavioral changes, No burning sensations, No confusion, No convulsions, No disequilibrium, No dizziness, No localized weakness, No frequent falls, No headache(s), No lack of coordination, No loss of vision, No memory loss, Yes numbness, No other visual disturbances, No radicular pain, No restless legs, No sensory deficit, No syncope, Yes tingling, No tremor(s), No weakness and No other Exam Const General: cooperative, comfortable and no acute distress Nutritional Appearance: thin Orientation: alert and oriented x3 Limitations: physical limitations (Patient is able to ambulate about the exam room with the use of a walker ) Chest Other: Well-healed sternotomy Resp Effort & Inspection: normal respiratory effort and able to speak in complete sentences Auscultation: clear to auscultation bilaterally, no rales, no rhonchi and no wheezes Cardio Rate: regular rate Rhythm: regular rhythm Heart Sounds: S1 normal and S2 normal GI Inspection: normal to inspection, non-distended and no scars Palpation: soft, no hepatosplenomegaly and tender in the RLQ (Mild with deep palpation) Assessment and Plan Assessment and Plan (1) Iron deficiency anemia: Status: Acute Comment: Patient endorses occasional hematochezia which he attributes to hemorrhoids, however, he has experienced new/unexplained weight loss and has mild tenderness to palpation of the right lower quadrant. This will require further endoscopic investigation. Plan - Dr. Clark Dalton MD: I have discussed the above with the patient. I have offered the patient colonoscopy for evaluation. I have explained the risks/benefits of the procedure and described the procedure. I have discussed the risks with the patient, including but not limited to: infection, bleeding, perforation of the GI tract requiring emergency surgery, inability to complete the procedure, injury to any internal organs, complications of anesthesia, etc. - the patient understands and agrees to proceed. We will tentatively plan for May 31, 2021. I have advised him he will need to hold his Eliquis for 48 hours before his procedure in 48 hours after (this was okayed through the patient's vascular surgeon). I have also requested a cardiology evaluation as the patient describes potentially new orthopnea and he is overdue for an ICD interrogation. I have answered all the patient's questions to the patient's satisfaction and the patient has no further questions. The patient has been given instructions for the colon cleansing preparation. Patient Instructions: ?Obtain cardiac clearance?including ICD interrogation (2) Weight loss, abnormal: Status: Acute Plan - Dr. Clark Dalton MD: Same as above I have examined the patient the following changes are noted: Patient had opportunity to visit with cardiology for an interval checkup of his ICD and overall cardiovascular status. His ICD is functioning well and his cardiovascular status is stable. He was given clearance to proceed with endoscopy as described. He confirms today that his prep was completed without issue and his output has been clear. He confirms that he stopped his Eliquis 2 days ago. We will proceed as planned.
[2021-05-31] MEDS: Lactated Ringers 1,000 ML 100 ML IV (08:02)
--- NOTE | 2021-05-31 08:15 | COLBX_PTH ---
PATIENT: MYRIAM LISA IV LOC: EN U#:[id number] AGE/SX: 56/M ROOM: RE05/31/[address]: Dr. Clark Dalton MD : 1965 BED: DIS: 05/31/2021 SPEC #: [id number] RECD: 05/31/21 13:14 STATUS: SONDRA ARIES #: [id number] DAHIANA: 05/31/21 08:[address]: Clark Dalton DEPT: SURGICAL PATHOLOGY RECD BY: Rhea Villeda ENTERED: 05/31/21 13:15 SP TYPE: COLON BX OTHR DR: Dr. Bud Dave DO Tissues: Descending colon Procedures: Surgery Specimen Level IV HEADER OPERATION: Colonoscopy (MAC) PRE-OP DIAGNOSIS: Iron deficiency anemia; weight loss TISSUE SUBMITTED: Junction of descending and sigmoid polyp MICROSCOPIC DIAGNOSIS Junction of descending and sigmoid colon polyp, polypectomy: Tubular adenoma. SJ:jordan 06/01/2021 MICROSCOPIC DESCRIPTION Slides are reviewed. GROSS DESCRIPTION Received in fixative is one container labeled with the patient's name and designated junction of descending and sigmoid polyp. The specimen consists of a escamilla-pink polyp measuring 0.9 x 1 x 0.5 cm. The polyp is bisected and submitted entirely in one cassette. / SJ:jordan 05/31/21 TC:1 CPT: 27721
--- NOTE | 2021-05-31 10:01 | OP.COLON_ITS ---
Patient Name: Kareem Sims Procedure Date: 05/31/2021 7:45 AM Date of : 1965 Age: 56 Procedure: Colonoscopy Indications: Unexplained iron deficiency anemia, Weight loss Providers: Clark Dalton MD Medicines: See the Anesthesia note for documentation of the administered medications Patient Profile: Refer to note in patient chart for documentation of history and physical. Last Colonoscopy: more than 10 years ago. Complications: No immediate complications. Estimated blood loss: Minimal. Procedure: Pre-Anesthesia Assessment: - Prior Anticoagulants: The patient has taken Eliquis (apixaban), last dose was 2 days prior to procedure. - Sedation was administered by an anesthesia professional. The sedation level attained was moderate. After I obtained informed consent, the scope was passed under direct vision. Throughout the procedure, the patient's blood pressure, pulse, and oxygen saturations were monitored continuously. The adult colonoscope was introduced through the anus and advanced to the cecum, identified by the ileocecal valve. The colonoscopy was somewhat difficult due to restricted mobility of the colon. Successful completion of the procedure was aided by performing the maneuvers documented (below) in this report. The patient tolerated the procedure well. During the procedure the patient had to be repositioned. Scope In: 8:21:26 AM Scope Withdrawal Time 0 hours 24 minutes 31 seconds Scope Out: 9:40:19 AM Total Procedure Duration Time 1 hour 18 minutes 53 seconds Findings: Many medium-mouthed diverticula were found in the sigmoid colon. There was no evidence of diverticular bleeding. A 15 mm polyp was found in the proximal sigmoid colon. The polyp was semi-pedunculated. The polyp was removed with a hot snare. Resection and retrieval were complete. internal hemorrhoids and numerous external skin tags Impression: - Moderate diverticulosis in the sigmoid colon. There was no evidence of diverticular bleeding. - One 15 mm polyp in the proximal sigmoid colon, removed with a hot snare. Resected and retrieved. Recommendation: - Discharge patient to home (via wheelchair). - Resume regular diet today. - Resume Eliquis (apixaban) and in 2 days at prior doses in 2 days. Refer to primary physician for further adjustment of therapy. - Repeat colonoscopy in 3 years for surveillance. Procedure Code(s): --- Professional --- 97834, Colonoscopy, flexible; with removal of tumor(s), polyp(s), or other lesion(s) by snare technique Diagnosis Code(s): --- Professional --- D12.5, Benign neoplasm of sigmoid colon D50.9, Iron deficiency anemia, unspecified R63.4, Abnormal weight loss K57.30, Diverticulosis of large intestine without perforation or abscess without bleeding CPT copyright 2017 [employer]. All rights reserved. The codes documented in this report are preliminary and upon barrel filler review may be revised to meet current compliance requirements. Clark Dalton MD 05/31/2021 10:00:54 AM This report has been signed electronically. Number of Addenda: 0 Note Initiated On: 05/31/2021 7:45 AM
--- NOTE | 2021-05-31 10:02 | OP.CCLET_ITS ---
05/31/2021 Bud Dave [address] [place] [address] Re : Colonoscopy procedure for Kareem Sims Dear Dr. Dave This procedure was performed on May. My impressions and recommendations are as follows: Impressions : - Moderate diverticulosis in the sigmoid colon. There was no evidence of diverticular bleeding. - One 15 mm polyp in the proximal sigmoid colon, removed with a hot snare. Resected and retrieved. Recommendations : - Discharge patient to home (via wheelchair). - Resume regular diet today. - Resume Eliquis (apixaban) and in 2 days at prior doses in 2 days. Refer to primary physician for further adjustment of therapy. - Repeat colonoscopy in 3 years for surveillance. My findings are described in the full procedure note, which is enclosed. If I can be of further assistance, please feel free to contact me at Doctor phone number(s): , Work: . Sincerely, Clark Dalton MD 05/31/2021 10:00:54 AM This report has been signed electronically.
== END 2021-05-31 11:44 ==
LOC: EN 07:09 → AC 07:11
PROVIDERS: PCP Family Medicine; Referring Provider Family Medicine; Visit Provider Surgery
PROC: 0DJD8ZZ Inspection of Lower Intestinal Tract, Via Natural or Artificial Opening Endoscopic (ICD-10-PCS; CPT 45378; principal; 2021-05-31 08:10)
DX: D12.5 Benign neoplasm of sigmoid colon (principal); K57.30 Diverticulosis of large intestine without perforation or abscess without bleeding; K64.8 Other hemorrhoids; K64.4 Residual hemorrhoidal skin tags; R63.4 Abnormal weight loss; I25.10 Atherosclerotic heart disease of native coronary artery without angina pectoris; I10 Essential (primary) hypertension; F32.9 Major depressive disorder, single episode, unspecified; E78.00 Pure hypercholesterolemia, unspecified; I73.9 Peripheral vascular disease, unspecified; K21.9 Gastro-esophageal reflux disease without esophagitis; I48.91 Unspecified atrial fibrillation; F17.210 Nicotine dependence, cigarettes, uncomplicated; Z68.22 Body mass index [BMI] 22.0-22.9, adult; Z95.810 Presence of automatic (implantable) cardiac defibrillator; Z95.1 Presence of aortocoronary bypass graft; Z79.82 Long term (current) use of aspirin; Z79.01 Long term (current) use of anticoagulants; Z79.899 Other long term (current) drug therapy; Z89.611 Acquired absence of right leg above knee; Z86.718 Personal history of other venous thrombosis and embolism; M19.90 Unspecified osteoarthritis, unspecified site; D50.9 Iron deficiency anemia, unspecified; Z87.19 Personal history of other diseases of the digestive system; F41.9 Anxiety disorder, unspecified
CPT/HCPCS: 45385; 88305; J7120; J2405

== ENCOUNTER → 2022-08-15 | Outpatient (CLI) | payer MEDICARE, OTHER, SELFPAY ==
[2022-08-15 12:45] LABS: Absolute Lymphocyte Count 2.14 X10^3/uL (0.83-4.51); Absolute Neutrophil Count 6.3 X10^3/uL (2.0-7.7); Basophil# 0.06 X10^3/uL; Basophil% 0.6 % (0-1); Eosinophil# 0.15 X10^3/uL; Eosinophils% 1.6 % (0-5); Hematocrit 49.2 % (40-54); Hemoglobin 16.1 g/dL (13.0-16.5); Lymphocyte # 2.14 X10^3/ul (0.83-4.51); Lymphocyte % 22.7 % (19-41); Mean Corp Hgb Conc 32.7 g/dL (32-36); Mean Corpuscular Hgb 32.4 pg (27.0-32.0); Mean Platelet Vol. 13.6 fl (6.2-12.0); Monocyte% 8.5 % (0-10); NRBC Flagged by Analyzer 0 % (0-5); Neutrophil # 6.25 X10^3/uL (2.7-7.7); Neutrophil % 66.2 % (47-70); Platelet Count 166 K/mm3 (150-450); RBC Distribution Width CV 15.6 % (11.6-14.6); RBC Distribution Width SD 56.7 fl (35.1-43.9); Red Blood Count 4.97 M/mm3 (4.6-6.2); White Blood Count 9.4 K/mm3 (4.4-11.0)
[2022-08-15 13:16] LABS: ALB/GLOB Ratio 1.2 RATIO (0.9-2.4); AST(SGOT) 26 U/L (15-37); Alanine Aminotransfer ALT/SGPT 46 U/L (16-61); Albumin, Serum 3.8 g/dL (3.2-5.0); Alkaline Phosphatase 253 U/L (45-117); Anion Gap 7 (5-15); BUN 9 mg/dL (7-18); BUN/Creat Ratio 12.5 RATIO (10-20); Calcium,Total 9.1 mg/dL (8.5-10.1); Chloride 111 mmol/L (98-107); Cholesterol 222 mg/dL (200); Creatinine, Serum 0.72 mg/dL (0.70-1.30); EST Glomerular Filtration Rate 120 mL/min (>60); Est Glom Filt Rate - Afr Amer 145 mL/min (>60); Globulin 3.3 g/dL (2.2-4.2); Glucose 90 mg/dL (74-106); High Density Lipoprotein 70 mg/dL; PSA,Total - Annual Screen 0.63 ng/mL (0.00-4.00); Potassium 3.9 mmol/L (3.5-5.1); Protein, Total 7.1 g/dL (6.4-8.2); Sodium Level 142 mmol/L (136-145); Triglycerides 242 mg/dL; Very Low Density Lipoprotein 48 mg/dL (5-40)
== END | disposition home or self-care (01) ==
LOC: BFHLAB 08:53
PROVIDERS: PCP Family Medicine; Visit Provider Family Medicine
DX: I25.10 Atherosclerotic heart disease of native coronary artery without angina pectoris (principal); I10 Essential (primary) hypertension; D50.9 Iron deficiency anemia, unspecified; Z12.5 Encounter for screening for malignant neoplasm of prostate
CPT/HCPCS: 36415; 80053; 80061; 84153; 85025; G0103

== ENCOUNTER 2023-07-26 02:09 | Emergency (ER) | payer BC, MEDICARE, SELFPAY ==
[2023-07-26 02:11] VITALS: BP 144/94; PULSE 96; RESP 18; TEMP 36.4; O2SAT 87; BMI 25.6
[2023-07-26] MEDS: HYDROmorphone 1 MG/ML Syringe 2 MG IM (02:46)
[2023-07-26] MEDS: Ondansetron ODT 4 MG Tablet PO (02:46)
--- NOTE | 2023-07-26 03:06 | RAD_ITS ---
INDICATION: pain EXAMINATION/TECHNIQUE: X-RAY - XR Spine Lumbar 2 or 3 Views COMPARISON: No relevant prior comparison study available FINDINGS: VERTEBRAE: There is a compression fracture of L1 with 50% decreased height probably a new fracture. No spondylolisthesis. Preservation of the normal lumbar lordosis. No significant facet arthropathy. DISCS: Disc spaces are maintained. INCLUDED ABDOMEN: Included bowel gas pattern is non-obstructive. RAD/Lumbar Spine 2 or 3 Views IMPRESSION: There is a compression fracture of L1 with 50% decreased height probably a new fracture. Electronically Signed: Bharathi Jay MD at 4:10 EDT ,
--- NOTE | 2023-07-26 04:33 | EX.ED.DYSGE1 ---
HPI History of Present Illness Chief Complaint: Back Informant: patient and spouse/S.O. Narrative Narrative: Patient is a 58-year-old male with past medical history of hypertension tobacco abuse and peripheral vascular disease leading to [id number] amputation of his right leg. Patient states around 5 PM today he lost his balance as he was trying to transfer and fell landing directly on his buttocks. He states that he felt the shockwave go up his entire spine. He reports he is on chronic oxycodone and takes it 2-3 times a day. He states that since the fall he is taking the medication without any symptom improvement. He denies any loss of bowel or bladder control or IV drug use. He states he is on Xarelto but he denies striking his head and he denies any headache change in vision or loss of conscious. He states that because of persistent back pain despite taking his oxycodone at home he presents for evaluation [facility] Medical History (Updated 07/27/23 @ 02:[address] Alvaro Ng, DO) Alcohol use Arthritis Atherosclerosis of coronary artery without angina pectoris Blood in stool Depression Diarrhea DVT (deep venous thrombosis) Easy bruising Elevated LFTs Essential (primary) hypertension Fracture of left hip Gastric reflux GERD (gastroesophageal reflux disease) Hemorrhoids History of blood clots Hyperhomocysteinemia Hypertension Ischemia of right lower extremity Ischemic cardiomyopathy MRSA infection Peripheral vascular disease of extremity with claudication Postoperative atrial fibrillation (04/30/20) Recurrent syncope Smoker Superficial thrombophlebitis of left leg Tobacco abuse Uses wheelchair Ventricular tachycardia Wears dentures Wears glasses Weight loss, abnormal Home Medications aspirin 81 mg tablet,delayed release (Adult Aspirin Regimen) 81 mg PO DAILY 02/22/20 [History Last Taken 03/30/20] atorvastatin 80 mg tablet 80 mg PO DAILY 02/22/20 [History Last Taken Unknown] bupropion HCl 150 mg tablet,12 hr sustained-release 150 mg PO DAILY 02/22/20 [History Last Taken Unknown] multivitamin 1 tab PO DAILY 05/29/21 [History Last Taken Unknown] ferrous gluconate 324 mg (38 mg iron) tablet 324 mg PO BID 02/05/22 [History Last Taken Unknown] rivaroxaban 20 mg tablet 20 mg PO QPM 02/05/22 [History Last Taken Unknown] temazepam 22.5 mg capsule 22.5 mg PO QHS 02/05/22 [History Last Taken Unknown] sertraline 50 mg tablet 50 mg PO DAILY 08/08/22 [History Last Taken Unknown] cilostazol 50 mg tablet 50 mg PO BID 04/07/23 [History Last Taken Unknown] gabapentin 600 mg tablet 600 mg PO TID 04/07/23 [History Last Taken Unknown] omeprazole 40 mg capsule,delayed release 40 mg PO DAILY 04/07/23 [History Last Taken Unknown] oxycodone 10 mg tablet 10 mg PO TID PRN severe pain (scale score 7-10) 04/07/23 [History Last Taken Unknown] oxycodone 30 mg tablet,crush resistant,extended release 12 hr 30 mg PO BID 5 days #10 tabs 07/26/23 [Rx Last Taken Unknown] Allergy/AdvReac Type Severity Reaction Status Date / Time shellfish derived Allergy Severe Swelling Verified 07/26/23 02:10 lorazepam [From Ativan] Allergy NEEDS Verified 07/26/23 02:10 FOLLOW-UP Family History Mother Heart disease Cancer Daughter Hyperhomocysteinemia Daughter Hyperhomocysteinemia Daughter Hyperhomocysteinemia Surgical History H/O coronary artery bypass surgery (04/27/20) History of coronary artery stent placement History of femoropopliteal bypass History of implantable cardiac defibrillator (ICD) (06/19/11) History of left heart catheterization (03/30/20) History of right above knee amputation (05/27/20) History of right below knee amputation (05/17/20) Status post femoral-popliteal bypass surgery Social History (Updated 04/07/23 @ 11:35 by Nichole Coleman) Smoking Status: Current some day smoker tobacco type: cigarettes alcohol intake: current alcohol intake frequency: a few times a week Alcohol type: hard liquor substance use type: does not use caffeine: No ROS ROS ED Constitutional Constitutional ED: Denies chills or fever(s) Eyes Eyes: Denies blurry vision or change in vision ENT ENT ED: Denies sore throat Cardiovascular Cardiovascular: Denies chest pain Respiratory/Chest Respiratory/Chest: Denies cough or dyspnea Gastrointestinal Gastrointestinal: Denies abdominal pain, diarrhea, nausea or vomiting Genitourinary Genitourinary ED: Denies dysuria Musculoskeletal Musculoskeletal: Reports back pain; Denies neck pain Integumentary Denies Abrasions or rash Neurologic Neurologic: Denies headache(s) Hematologic/Lymphatic Hematologic/Lymphatic: Reports easy bleeding and easy bruising EXAM Physical Exam Const Vital Signs: 07/26/23 02:11 Temperature 97.6 F L Temperature Source Temporal Pulse Rate 96 Respiratory Rate 18 Blood Pressure 144/94 H Blood Pressure Mean 110 Pulse Ox 87 Oxygen Delivery Method Room Air Positive well nourished and well developed General Appearance ED: well developed HEENT HEENT Narrative: Normocephalic atraumatic No signs of depressed or basilar skull fracture Eyes PERRL and EOMs intact bilaterally General Eye ED: Negative for pale conjunctiva or scleral icterus Neck supple Neck Narrative: No bony deformity or step-off of the cervical spine no midline pain on palpation Chest Wall palpation of chest normal Resp normal respiratory effort Resp Narrative: Breath sounds are diminished throughout with faint rhonchi in the bilateral bases consistent with history of smoking. No nasal flaring retractions tachypnea or accessory muscle use. Cardio regular rate and regular rhythm Back/Spine Back/Spine Narrative: No bony deformity or step-off of the thoracic or lumbar spine but there is midline pain on palpation along the upper lumbar region. Negative straight leg raise on left. No saddle anesthesia. No clonus or Babinski on left. Left patellar reflex is plus 1 out of 4 I cannot assess clonus Babinski or reflex on the right leg as there is an [id number] amputation. Extremity Extremity Narrative: Chronic right-sided [id number]-[id number]-sptv amputation Neuro oriented x3, CN's II-XII intact bilaterally and no sensory deficits noted Sensorium / Orientation: alert Psych mental status grossly normal Skin Skin Narrative: Chronic stasis changes to the left lower leg consistent history of peripheral vascular disease No abrasions or ecchymosis noted across the low back region. MDM MDM MDM Narrative Medical decision making narrative: Patient presented to the ER with report of mechanical fall so I felt no need for cardiac or syncope work-up. He denies striking his head or any loss of consciousness he has no signs of depressed or basilar skull fracture when he is on a blood thinner. Secondary to this we did discuss potential head CT based on his fall. However as he does not have headache or change in vision and denies striking his head he does not want a head CT obtained as concern for skull fracture and brain bleed is low. With pain in the midline low back as well as a history of falling directly on it there is concern for compression fracture versus burst fracture versus spondylolisthesis. An x-ray was obtained which shows a grade 3 fracture. At this time the patient's fracture is closed and he is neurovascularly intact and therefore do not feel he requires emergent orthopedic/spine consultation. The patient is on oxycodone 2-3 times a day chronically and therefore I will add extended release oxycodone twice a day for improved pain control. The patient understands he needs to follow-up with orthopedic/spine surgery to discuss treatment options such as bracing versus surgical fixation. However at this time as he is closed and neurologically intact there is no need for further work-up and he be discharged home. History & Record Review Discussion w/independent historian: Patient and Significant other Radiography Diagnostic Testing: Clinical Impression(s) from Imaging Studies Lumbar Spine X-Ray 07/26/23 03:06 IMPRESSION: There is a compression fracture of L1 with 50% decreased height probably a new fracture. Electronically Signed: Bharathi Jay MD at 4:10 EDT , X-ray of the lumbar spine as interpreted by the emergency medicine physician reveals a L1 compression fracture considered a grade 3 with a approximately 50% collapse Discharge Plan Triage Chief Complaint: Back ED Provider: Alvaro Ng Dx/Rx/DC Orders Clinical Impression: Closed compression fracture of L1 vertebra, Essential (primary) hypertension, Tobacco abuse, Peripheral vascular disease Instructions: Compression Fx Prescriptions: New oxycodone 30 mg tablet,oral only,ext.rel.12 hr 30 mg PO BID 5 Days Qty: 10 0RF No Action atorvastatin 80 mg tablet 80 mg PO DAILY bupropion HCl 150 mg tablet sustained-release 12 hr 150 mg PO DAILY aspirin [Adult Aspirin Regimen] 81 mg tablet,delayed release (DR/EC) 81 mg PO DAILY ferrous gluconate 324 mg (38 mg iron) tablet 324 mg PO BID Patient Comments: 1 TABLET ORALLY DAILY WITH WATER OR JUICE BETWEEN MEALS temazepam 22.5 mg capsule 22.5 mg PO QHS Xarelto 20 mg tablet 20 mg PO QPM sertraline 50 mg tablet 50 mg PO DAILY gabapentin 600 mg tablet 600 mg PO TID Patient Comments: TAKE 1 TABLET BY MOUTH THREE TIMES A DAY cilostazol 50 mg tablet 50 mg PO BID Patient Comments: TAKE 1 TABLET BY MOUTH TWICE A DAY omeprazole 40 mg capsule,delayed release(DR/EC) 40 mg PO DAILY Patient Comments: TAKE 1 CAPSULE BY MOUTH EVERY DAY oxycodone 10 mg tablet 10 mg PO TID PRN (Reason: severe pain (scale score 7-10)) Patient Comments: 1-1.5 TABLETS BY MOUTH 3 TIMES A DAY NEEDED SEVERE PAIN multivitamin Tablet 1 tab PO DAILY Primary Care Provider: Bud Dave Referrals: Krishna Burns MD [Med Staff - Active Staff] - Bud Dave DO [Primary Care Provider] - Activity Restrictions/Additional Instructions: Continue your normal medication as directed. You have a 50% L1 compression fracture. Secondary to this follow-up with orthopedic/spine surgery to discuss need for treatment options such as bracing versus surgery. Take the extended release oxycodone twice a day but continue your normal oxycodone 2 or 3 times a day for continued pain relief. If you have worsening of symptoms or any further concerns please return for repeat evaluation Disposition Disposition: Home, Self Care Discharge Date/Time: 07/26/23 04:49
[2023-07-26] MEDS: oxyCODONE 5 MG Tablet 10 MG PO (04:46)
== END 2023-07-26 04:49 | disposition home or self-care (01) ==
PROVIDERS: Emergency Provider Emergency Medicine; PCP Family Medicine; Visit Provider Emergency Medicine
DX: S32.019A Unspecified fracture of first lumbar vertebra, initial encounter for closed fracture (principal); I73.9 Peripheral vascular disease, unspecified; I25.10 Atherosclerotic heart disease of native coronary artery without angina pectoris; I10 Essential (primary) hypertension; F17.210 Nicotine dependence, cigarettes, uncomplicated; Z79.82 Long term (current) use of aspirin; Z79.899 Other long term (current) drug therapy; W19.XXXA Unspecified fall, initial encounter; Z86.718 Personal history of other venous thrombosis and embolism; Z95.5 Presence of coronary angioplasty implant and graft
CPT/HCPCS: 72100; 96372; 99283

== ENCOUNTER 2023-09-24 07:30 | Outpatient (RCR) | payer BC, MEDICARE, SELFPAY ==
--- NOTE | 2023-09-16 10:07 | HP.PTEVAL ---
Patient's Visit Information Visit Information Visit Information: MYRIAM LISA IV is a 58 year old M referred to Physical Therapy by Dr. Bud Dave DO with a diagnosis of ABSENCE OF RIGHT LEG ABOVE KNEE. Date of Evaluation: 09/16/23 Physical Therapist: Larry Giron PT, Cert MDT, OCS Visit Plan Frequency: 2x /Week Duration: 4 Weeks Plan: PRECUATION: pacemaker /defibrillator PT INTERVTION PROGRESSIVE GAIT TRAINING WITH NEW PROTHEISIS ,BALANCE PROGRAM ,ENDURANCE PROGRAM AND LEFT LE STRENGTHENING AND AKA HIP STRENGTHENING AND FUNCTIONAL STRENGTHENING Subjective Subjective: This 58 y/o male presents to physical therapy with right AKA. Patient had right AKA 3 years. Patient had a fall ~ 1 year ago and fx left with IM nailing. Patient had Rehab at [facility]. Patient had to learn to walk again. Patient fell again ~ 1month ago caused compression fracture . Patient fell had old knee prosthetic. Patient has new prosthesis and need to learn how to walk and function. Patient has apprehension of falling . Patient has pacemaker/defibrillator. Needs to be replaced Sep 25 at [facility]. 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 Patient uses rollator for gait. Patient becomes tired quickly needs rest. Patient has phantom pain right foot. Patient has trailor 3 steps but has ramp. Patient has walk-in shower with seat. Patient is able to dress and bath. Patient sleeps okay. Patient condition affects QOL and function. Patient goals to walk and increase strength. PRECAUTION: pacemaker /difibulator VOCATION: disabled SOCIAL: Objective Objective: POSTURE: mild forward posture ,prothesis right AKA NEURO: c/o paresthesia/tingling foot ,light touch intact right stump GAIT: ambulates with rollator with right leg prothesis slow claudette forward posture decrease stance time fatigues BALANCE: fair+ with rollator MMT:( peak force) right AKA hip flexion 15.8 ,hip abduction 12.8 ,left hip flexion 17.7 ,hip abduction 13.2, left quads 15.2 ,hamstrings 13.4 Balance/Special Test Scores CATSIB Score (Max score 120 seconds): 30 Lower Extremity Functional Score: 21 Goals Goal 1:: Patient to be I with HEP for legs Goal Time Frame: 4-6 Weeks Goal 2:: Patient to ambulate with improved gait with rollator community distance with prothesis . Goal Time Frame: 4-6 Weeks Goal 3:: Patient to improve peak force of quads/hamstrings left and bilateral hips by 5-10 # strength to improve function. Goal Time Frame: 4-6 Weeks Goal 4:: Patient to improve LFES score by 5 points to improve gait and QOL Goal Time Frame: 4-6 Weeks Goal 5:: Patient to improve CATSIBE by 5 points to improve function and balnce Goal Time Frame: 4-6 Weeks Rehabilitation Potential Physical Therapy Diagnosis: This patient has right AKA with new prothesis which needs to learn how to use and walk along with weakness in left leg impairs function and gait thus benefit from skilled PT Rehabilitation Potential: Good Anticipated Interventions Patient/Client Instruction: Educate patient on: Condition and Plan of Care For the Purpose of:: To improve muscle performance and motor function, To improve ability to perform ADL's, To increase tolerance to activity/condition/position, To improve ability of physical actions for home/community/work/leisure, To improve gait and locomotor functions, To improve endurance, To improve balance, To improve safety with gait and To improve tolerance to ADL's Therapeutic Exercise to Include: Strength training, Endurance training, Balance training, Gait and locomotor training and Active ROM Comment: AKA ,LEFT LE QUADS/HAMS/HIP For the Purpose of:: To increase ROM, To improve muscle performance and motor function, To improve ability to perform ADL's, To increase tolerance to activity/condition/position, To improve performance and independence with ADL's, To improve ability of physical actions for home/community/work/leisure, To improve gait and locomotor functions, To increase flexibility/ROM, To improve endurance, To improve balance, To improve safety with gait and To improve tolerance to ADL's Text: Thank you for the opportunity to evaluate your patient. For Medicare and Medicare HMO plans, please review the plan of care and approve it. It will need to be FAXED BACK to us at [phone] for Medicare purposes. For Medicare only, by signing this I certify the plan of care. Please let me know if there are questions or concerns regarding this plan of care. Physician Signature: Date:
== END 2023-09-24 19:00 | disposition home or self-care (01) ==
LOC: PT 07:30
PROVIDERS: PCP Family Medicine; Referring Provider Family Medicine; Visit Provider Family Medicine
DX: Z89.611 Acquired absence of right leg above knee (principal)
CPT/HCPCS: 97110; 97116; 97162

== ENCOUNTER 2023-09-27 09:08 | Observation (INO) | payer BC, MEDICARE, SELFPAY ==
[2023-09-27] VITALS (9 sets, daily range): BP systolic 155–178; BP diastolic 92–109; PULSE 64–93; RESP 13–18; TEMP 36.2–36.8; O2SAT 92–94; BMI 23.7; BMI 22.4
--- NOTE | 2023-09-27 10:06 | EKG12_ITS ---
Test Reason : DIZZINESS Blood Pressure : / mmHG Vent. Rate : 071 BPM Atrial Rate : 071 BPM P-R Int : 152 ms QRS Dur : 098 ms QT Int : 442 ms P-R-T Axes : 017 -13 053 degrees QTc Int : 480 ms Normal sinus rhythm Cannot rule out Inferior infarct , age undetermined Abnormal ECG Confirmed by ADAMS MCQUEEN, JAE ([id number]), offline editor NILE HERNANDEZ ([id number]) on 10/07/2023 8:49:30 AM Referred By: SHAREE Confirmed By:JAE LAMAS MD
--- NOTE | 2023-09-27 10:18 | CT_ITS ---
HISTORY: dizziness. TECHNIQUE: Multiple axial images were obtained of the head without intravenous contrast. A radiation dose optimization technique was used for this scan. 241 images. COMPARISON: None. FINDINGS: BRAIN PARENCHYMA: No significant attenuation abnormality. No acute intra-axial hemorrhage. CSF SPACES: Cerebral ventricles, cortical sulci, and other extra-axial CSF spaces within normal limits in size for age. No midline shift or other significant mass effect. No acute extra-axial hemorrhage. OTHER: Intact calvarium. No significant air fluid levels in the paranasal sinuses or mastoid air cells. Unremarkable orbits. CT/Brain/Head without Contrast IMPRESSION: No acute intracranial process identified. Electronically Signed: Tami Schwartz MD at 11:17 EST ,
--- NOTE | 2023-09-27 10:19 | EX.ED.DYSGE1 ---
HPI History of Present Illness Chief Complaint: Dizziness Informant: patient and spouse/S.O. Onset/Context/Timing Onset: Days Context: Gradual Onset Timing: Continuous Current Severity: Mild Maximum Severity: Moderate Narrative Narrative: 58-year-old male history of a prior DVT on the blood thinner Xarelto, peripheral vascular disease, right leg amputation above the knee due to peripheral arterial disease, AZ with cardiac stents and defibrillator. This has not felt well for the last week and has increasing sleep. Over the last 2 days he has had dizziness. Not associated with head movement. No headache or head trauma. It was so dizziness while he was in the bathroom he fell to the ground. Did not hit his head. He denies any nausea vomiting or diarrhea. He denies any dysuria. He denies any issues moving his arms or left leg. Prior similar symptoms: No Recent Illness/Hospitalization: No PFSH PFS Medical History Alcohol use Arthritis Atherosclerosis of coronary artery without angina pectoris Blood in stool Depression Diarrhea DVT (deep venous thrombosis) Easy bruising Elevated LFTs Essential (primary) hypertension Fracture of left hip Gastric reflux GERD (gastroesophageal reflux disease) Hemorrhoids History of blood clots Hyperhomocysteinemia Hypertension Ischemia of right lower extremity Ischemic cardiomyopathy MRSA infection Peripheral vascular disease of extremity with claudication Postoperative atrial fibrillation (04/30/20) Recurrent syncope Smoker Superficial thrombophlebitis of left leg Tobacco abuse Uses wheelchair Ventricular tachycardia Wears dentures Wears glasses Weight loss, abnormal Home Medications aspirin 81 mg tablet,delayed release (Adult Aspirin Regimen) 81 mg PO DAILY 02/22/20 [History Last Taken 03/30/20] atorvastatin 80 mg tablet 80 mg PO DAILY 02/22/20 [History Last Taken Unknown] bupropion HCl 150 mg tablet,12 hr sustained-release 150 mg PO DAILY 02/22/20 [History Last Taken Unknown] multivitamin 1 tab PO DAILY 05/29/21 [History Last Taken Unknown] ferrous gluconate 324 mg (38 mg iron) tablet 324 mg PO BID 02/05/22 [History Last Taken Unknown] rivaroxaban 20 mg tablet 20 mg PO QPM 02/05/22 [History Last Taken Unknown] temazepam 22.5 mg capsule 22.5 mg PO QHS 02/05/22 [History Last Taken Unknown] sertraline 50 mg tablet 50 mg PO DAILY 08/08/22 [History Last Taken Unknown] cilostazol 50 mg tablet 50 mg PO BID 04/07/23 [History Last Taken Unknown] gabapentin 600 mg tablet 600 mg PO TID 04/07/23 [History Last Taken Unknown] omeprazole 40 mg capsule,delayed release 40 mg PO DAILY 04/07/23 [History Last Taken Unknown] oxycodone 10 mg tablet 10 mg PO TID PRN severe pain (scale score 7-10) 04/07/23 [History Last Taken Unknown] metoprolol succinate 25 mg tablet,extended release 24 hr 25 mg PO BID 07/30/23 [History Last Taken Unknown] tamsulosin 0.4 mg capsule mg PO 07/30/23 [History Last Taken Unknown] Allergy/AdvReac Type Severity Reaction Status Date / Time shellfish derived Allergy Severe Swelling Verified 09/27/23 09:08 lorazepam [From Ativan] Allergy NEEDS Verified 09/27/23 09:08 FOLLOW-UP Family History Mother Heart disease Cancer Daughter Hyperhomocysteinemia Daughter Hyperhomocysteinemia Daughter Hyperhomocysteinemia Surgical History H/O coronary artery bypass surgery (04/27/20) History of coronary artery stent placement History of femoropopliteal bypass History of implantable cardiac defibrillator (ICD) (06/19/11) History of left heart catheterization (03/30/20) History of right above knee amputation (05/27/20) History of right below knee amputation (05/17/20) Status post femoral-popliteal bypass surgery Social History Smoking Status: Current some day smoker tobacco type: cigarettes alcohol intake: current alcohol intake frequency: a few times a week Alcohol type: hard liquor substance use type: does not use caffeine: No ROS ROS ED ROS Narrative Dizziness . Increased sleep. Denies vomiting or diarrhea. Review of Systems ROS Unobtainable: Denies due to encephalopathy Constitutional Constitutional ED: Denies chills or fever(s) Eyes Eyes: Denies blurry vision or change in vision ENT ENT ED: Denies ear pain Cardiovascular Cardiovascular: Denies chest pain or palpitations Respiratory/Chest Respiratory/Chest: Denies cough or dyspnea Gastrointestinal Gastrointestinal: Denies abdominal pain, constipation, diarrhea, melena, nausea or vomiting Genitourinary Genitourinary ED: Denies dysuria or hematuria Musculoskeletal Musculoskeletal: Denies arthralgias Integumentary Denies abscess Neurologic Neurologic: Denies headache(s) Psychiatric Psychiatric: Denies anxiety Endocrine Endocrinology: Denies cold intolerance Hematologic/Lymphatic Hematologic/Lymphatic: Reports none Allergic/Immunologic Allergic/Immunologic ED: Denies mouth swelling, tongue swelling or urticaria EXAM Physical Exam Narrative Exam Narrative: 58-year-old male vital signs are stable afebrile. No acute distress sitting upright in bed. at bedside. H EENT exam unremarkable atraumatic. Pupils round reactive light. No facial droop. Normal speech. No trauma. Neck nontender. Lungs are clear. Heart regular rhythm no murmur. Prior well-healed sternotomy. Left-sided defibrillator pacemaker. Abdomen soft nontender normal bowel sounds no peritoneal signs. Both upper extremities are unremarkable with normal chalk tester strength and range of motion. Left leg is unremarkable with normal dorsi plantarflexion. Right leg is above the amputation. There is no edema. Neurologically is awake and alert. No focal motor deficits. NIH is 0. Hallpike is negative does not reproduce his dizziness or make the room spinning. Const Vital Signs: 09/27/23 09:09 09/27/23 09:24 09/27/23 11:14 Temperature 97.2 F L Temperature Source Temporal Pulse Rate 81 Pulse Rate [Lying] 64 Pulse Rate [Sitting (for 1 minute prior to obtaining)] 67 Respiratory Rate 18 Respiratory Effort Normal Non-Labored Respiratory Pattern Normal Blood Pressure 159/92 H Blood Pressure [Lying] 169/96 H Blood Pressure [Sitting (for 1 minute prior to obtaining)] 158/109 H Blood Pressure Mean 114 Blood Pressure Mean [Lying] 120 Blood Pressure Mean [Sitting (for 1 minute prior to obtaining)] 125 Pulse Ox 92 Oxygen Delivery Method Room Air 09/27/23 11:55 Temperature 98.1 F Temperature Source Pulse Rate 74 Pulse Rate [Lying] Pulse Rate [Sitting (for 1 minute prior to obtaining)] Respiratory Rate 13 Respiratory Effort Respiratory Pattern Blood Pressure 164/103 H Blood Pressure [Lying] Blood Pressure [Sitting (for 1 minute prior to obtaining)] Blood Pressure Mean 123 Blood Pressure Mean [Lying] Blood Pressure Mean [Sitting (for 1 minute prior to obtaining)] Pulse Ox 94 Oxygen Delivery Method Positive well nourished and well developed; Negative for obese, cachectic, contractures or unkempt General Appearance ED: well developed and NAD; Negative for unkempt, cachectic, contractures, cyanotic, diaphoretic or pallor Nutritional Appearance: Negative for cachectic or obese HEENT Reports TM's clear and moist mucous membranes; Denies dry mucous membranes Negative for trauma or tenderness Tympanic Membrane ED: Yes TM's clear Mouth ED: No dry mucous membranes Mouth: No dry mucous membranes Eyes PERRL and EOMs intact bilaterally General Eye ED: Negative for pale conjunctiva, scleral icterus or other Neck no lymphadenopathy, supple and no JVD General: Negative for tenderness Lymph Lymphatic: Negative for other Chest Wall inspection of chest normal and palpation of chest normal Chest: Negative for other Resp normal respiratory effort and clear to auscultation bilaterally Effort and Inspection: Negative for retractions Auscultation: Negative for rales, rhonchi or wheezes Cardio regular rate, regular rhythm, S1 normal heart sound, S2 normal heart sound and no murmurs Palpation: Negative for palpable S3 or palpable S4 Rate: Negative for bradycardia or tachycardic Rhythm: Negative for abnormal rhythm GI normal to inspection, nondistended, normoactive bowel sounds, non-tender, non-distended and no masses Inspection: Negative for abdominal distention Auscultation: normoactive bowel sounds Palpation: soft; Negative for tender or guarding Back/Spine no CVA tenderness General Back: Negative for CVA tenderness Cervical Spine: Negative for cervical spine tenderness Thoracic Spine / Upper Back: Negative for thoracic spinal tenderness Lumbar Spine / Lower Back: Negative for lumbar spinal tenderness Extremity normal to inspection General Extremety ED: Negative for edema or tenderness General Extremity: Negative for edema Neuro oriented x3 and CN's II-XII intact bilaterally Sensorium / Orientation: alert; Negative for orientation impaired, lethargic or stuporous Motor Exam: strength 5/5 throughout; Negative for general weakness Psych mental status grossly normal Appearance: Negative for unkempt Attitude: No agitated Mood & Affect: Negative for depressed, anxious or tearful Skin no rashes or lesions noted, no wounds and skin turgor normal General Skin Exam: elasticity normal; Negative for jaundice or pallor Lesions: No lesion noted Rashes: No rashes noted Trauma: Negative for abrasion Wounds: Negative for wounds noted MDM MDM MDM Narrative Medical decision making narrative: 58-year-old male that has show disease with dizziness is not reproduced by Hallpike. Is a normal neurologic exam. CAT scan labs are pending. Repeat exam at 1145 patient is doing okay. Nurses did orthostatic vital signs able to sit him in doing lying he could not stand because he got so dizzy. He did not significantly change. I went over test results with the patient and his . Clinically this does not appear to be benign positional vertigo. He is unable to ambulate. He is a vasculopath and has only the 1 leg. I will speak to the hospitalist about admission. History & Record Review Discussion w/independent historian: Patient Additional record(s) reviewed:: Prior inpatient record, Prior outpatient record, Prior ED visit, Prior labs and No prior records Lab Data Attestation: I reviewed the patient's lab results. Lab results narrative: CBC unremarkable white count 9. H&H 14 and 43. Platelets are slightly low at 113. Thrombocytopenia is new. Electrolytes show potassium 3.2 gap of 3 normal BUN and creatinine. Glucose 95. Labs: Laboratory Results - last 24 hr 09/27/23 10:30 WBC 9.9 RBC 4.45 L Hgb 14.3 Hct 43.2 MCV 97.1 H MCH 32.1 H MCHC 33.1 RDW Std Deviation 48.4 H RDW Coeff of Valeria 13.4 Plt Count 113 L MPV 13.9 H Immature Gran % (Auto) 0.300 Neut % (Auto) 73.3 H Lymph % (Auto) 17.2 L [place] % (Auto) 7.3 Eos % (Auto) 1.2 Baso % (Auto) 0.7 Absolute Neuts (auto) 7.2 Absolute Lymphs (auto) 1.70 Nucleated RBC % 0 Sodium 142 Potassium 3.2 L Chloride 110 H Carbon Dioxide 29.0 Anion Gap 3 L BUN 8 Creatinine 0.59 L Est GFR (MDRD) Af Amer 183 Est GFR (MDRD) Non-Af 151 BUN/Creatinine Ratio 13.6 Glucose 95 Calcium 9.4 Radiography Chest X-Ray - ED: 1 View, Read by ED Physician, Read by Radiologist, Lungs, Mediastinum, Bony Structures, No Acute Disease, Chronic Changes and Cardiomegaly Diagnostic Testing: Clinical Impression(s) from Imaging Studies Brain CT 09/27/23 10:18 IMPRESSION: No acute intracranial process identified. Electronically Signed: Tami Schwartz MD at 11:17 EST , Chest X-Ray 09/27/23 10:45 IMPRESSION: Stable chest with no acute or active cardiopulmonary disease. Electronically Signed: Santiago Espinosa MD at 10:56 EST , Chest x-ray, portable, single view interpreted both by myself and the radiologist, shows no acute process. Cardiomegaly. Left-sided defibrillator. Prior sternotomy. Lungs unremarkable. Chronic changes. Rhythm Strip Rhythm Strip: Sinus Rhythm Rate: 1 Ectopy: None EKG Initial EKG: Attestation: I personally reviewed and interpreted this EKG as follows: Interpretation: Sinus Rhythm and No Acute Injury Pattern Comments: Sinus rhythm rate of 71 no acute signs of AZ or ischemia. Discharge Plan Dx/Rx/DC Orders Clinical Impression: History of AZ (myocardial infarction), History of right lower extremity amputation, Dizziness, Chronic anticoagulation, History of peripheral arterial disease, Unable to ambulate Disposition Disposition: Acute Care [facility]
[2023-09-27] MEDS: 0.9% Normal Saline (1000mL) 1,000 ML 1000 ML IV (10:40)
[2023-09-27 10:45] LABS: Absolute Neutrophil Count 7.2 X10^3/uL (2.0-7.7); Basophil# 0.07 X10^3/uL; Basophil% 0.7 % (0-1); Eosinophil# 0.12 X10^3/uL; Eosinophils% 1.2 % (0-5); Hematocrit 43.2 % (40-54); Hemoglobin 14.3 g/dL (13.0-16.5); Lymphocyte % 17.2 % (19-41); Mean Corp Hgb Conc 33.1 g/dL (32-36); Mean Corpuscular Hgb 32.1 pg (27.0-32.0); Mean Corpuscular Volume 97.1 fL (80-94); Mean Platelet Vol. 13.9 fl (6.2-12.0); Monocyte# 0.72 X10^3/uL; Monocyte% 7.3 % (0-10); NRBC Flagged by Analyzer 0 % (0-5); Neutrophil # 7.22 X10^3/uL (2.7-7.7); Neutrophil % 73.3 % (47-70); Platelet Count 113 K/mm3 (150-450); RBC Distribution Width CV 13.4 % (11.6-14.6); RBC Distribution Width SD 48.4 fl (35.1-43.9); Red Blood Count 4.45 M/mm3 (4.6-6.2); White Blood Count 9.9 K/mm3 (4.4-11.0)
--- NOTE | 2023-09-27 10:45 | RAD_ITS ---
STUDY: X-RAY CHEST REASON FOR EXAM: Male, 58 years old. Weakness. TECHNIQUE: Single frontal view of the chest. COMPARISON: March 07, 2021 FINDINGS: Low volume inspiration with mild diffuse interstitial pattern, cardiomegaly, cardiac pacer, sternotomy wires, aortic tortuosity with calcification and slight elevation of the right hemidiaphragm. No active or acute cardiopulmonary disease No abnormality of the visualized soft tissue structures of the upper abdomen. RAD/Chest 1 View (Portable) IMPRESSION: Stable chest with no acute or active cardiopulmonary disease. Electronically Signed: Santiago Espinosa MD at 10:56 EST ,
[2023-09-27 10:56] LABS: Anion Gap 3 (5-15); BUN 8 mg/dL (7-18); BUN/Creat Ratio 13.6 RATIO (10-20); Calcium,Total 9.4 mg/dL (8.5-10.1); Chloride 110 mmol/L (98-107); Creatinine, Serum 0.59 mg/dL (0.70-1.30); EST Glomerular Filtration Rate 151 mL/min (>60); Est Glom Filt Rate - Afr Amer 183 mL/min (>60); Glucose 95 mg/dL (74-106); Potassium 3.2 mmol/L (3.5-5.1); Sodium Level 142 mmol/L (136-145)
--- NOTE | 2023-09-27 11:53 | PCM.HP.STD ---
HPI - General General Date of Admission: 09/27/23 Date of Service: 09/27/23 Chief Complaint: dizziness HPI Narrative MYRIAM LISA, is a 58 M with a PMH as outlined who presents via the ED On 09/27/2023 with a complaint of dizziness. He has peripheral disease s/p RLE AKA for peripheral vascular disease. He came in via the ED with a complaint of dizziness which started in the early hours of the day of admission. He woke up or down to go to the bathroom and said he felt very dizzy. He denied any lightheadedness or palpitations. He said in the morning when he woke up to and try to get out of bed he got very dizzy and was not able to carry out his activities of daily living. Dizziness was not worsened by movement. He denied any headache or recent history of head trauma. He has not had such dizziness before in the past. He denied any palpitation, nausea or vomiting or any decreased intake. Patient continues to smoke. He denied any focal weakness, numbness or tingling. She did not have any palpitations or any other symptoms. Review of systems otherwise negative. Vitals at time of review with temperature of 98.1 Fahrenheit, blood pressure 162/123. Respiratory rate of 13 and pulse rate of 74. He was saturating at 94% on room air. CBC showed hb of 14.3, wbc of 9.9 and platelets of 113. CHemistry showed sodium of 142, potassium of 3.[address] brain showed no acute intracranial pathology. CXR showed no acute cardiopulmonary process. He is being managed for intractable dizziness to rule out a stroke. [facility] Medical History Alcohol use Arthritis Atherosclerosis of coronary artery without angina pectoris Blood in stool Depression Diarrhea DVT (deep venous thrombosis) Easy bruising Elevated LFTs Essential (primary) hypertension Fracture of left hip Gastric reflux GERD (gastroesophageal reflux disease) Hemorrhoids History of blood clots Hyperhomocysteinemia Hypertension Ischemia of right lower extremity Ischemic cardiomyopathy MRSA infection Peripheral vascular disease of extremity with claudication Postoperative atrial fibrillation (04/30/20) Recurrent syncope Smoker Superficial thrombophlebitis of left leg Tobacco abuse Uses wheelchair Ventricular tachycardia Wears dentures Wears glasses Weight loss, abnormal Home Medications aspirin 81 mg tablet,delayed release (Adult Aspirin Regimen) 81 mg PO DAILY 02/22/20 [History Last Taken 03/30/20] atorvastatin 80 mg tablet 80 mg PO DAILY 02/22/20 [History Last Taken Unknown] bupropion HCl 150 mg tablet,12 hr sustained-release 150 mg PO DAILY 02/22/20 [History Last Taken Unknown] multivitamin 1 tab PO DAILY 05/29/21 [History Last Taken Unknown] ferrous gluconate 324 mg (38 mg iron) tablet 324 mg PO BID anemia 02/05/22 [History Last Taken 09/27/23] rivaroxaban 20 mg tablet 20 mg PO QPM vascular insufficency 02/05/22 [History Last Taken 09/26/23] temazepam 22.5 mg capsule 22.5 mg PO QHS 02/05/22 [History Last Taken Unknown] sertraline 50 mg tablet 50 mg PO DAILY 08/08/22 [History Last Taken Unknown] cilostazol 50 mg tablet 50 mg PO BID 04/07/23 [History Last Taken Unknown] gabapentin 600 mg tablet 600 mg PO TID 04/07/23 [History Last Taken Unknown] omeprazole 40 mg capsule,delayed release 40 mg PO DAILY 04/07/23 [History Last Taken Unknown] oxycodone 10 mg tablet 10 mg PO TID PRN severe pain (scale score 7-10) 04/07/23 [History Last Taken Unknown] metoprolol succinate 25 mg tablet,extended release 24 hr 25 mg PO BID 07/30/23 [History Last Taken Unknown] tamsulosin 0.4 mg capsule mg PO 07/30/23 [History Last Taken Unknown] Allergy/AdvReac Type Severity Reaction Status Date / Time shellfish derived Allergy Severe Swelling Verified 09/27/23 09:08 lorazepam [From Ativan] Allergy NEEDS Verified 09/27/23 09:08 FOLLOW-UP Family History Mother Heart disease Cancer Daughter Hyperhomocysteinemia Daughter Hyperhomocysteinemia Daughter Hyperhomocysteinemia Surgical History H/O coronary artery bypass surgery (04/27/20) History of coronary artery stent placement History of femoropopliteal bypass History of implantable cardiac defibrillator (ICD) (06/19/11) History of left heart catheterization (03/30/20) History of right above knee amputation (05/27/20) History of right below knee amputation (05/17/20) Status post femoral-popliteal bypass surgery Social History Smoking Status: Current some day smoker tobacco type: cigarettes alcohol intake: current alcohol intake frequency: a few times a week Alcohol type: hard liquor substance use type: does not use caffeine: No ROS Constitutional Constitutional: Reports fatigue; Denies anorexia, change in weight, chills, fever(s), malaise or weakness Eyes Eyes: Denies change in vision ENT HEENT: Denies dysphagia, headache(s), sore throat or throat swelling Cardiovascular Cardiovascular: Denies chest pain, claudication, edema, orthopnea, palpitations, paroxysmal nocturnal dyspnea or syncope Respiratory/Chest Respiratory/Chest: Denies cough, hemoptysis or shortness of breath at rest Gastrointestinal Gastrointestinal: Denies abdominal pain, constipation, nausea or vomiting Genitourinary Genitourinary: Denies dysuria or nocturia Musculoskeletal Musculoskeletal: Denies back pain, joint stiffness or joint swelling Neurologic Neurologic: Reports dizziness; Denies confusion, focal weakness, headache(s), lack of coordination, numbness, seizures, tingling, tremor(s) or weakness Psychiatric Psychiatric: Denies anxiety or depression Endocrine Endocrinology: Denies change in body appearance Hematologic/Lymphatic Hematologic/Lymphatic: Denies anemia Vital Signs Vital Signs Vital Signs: 09/27/23 09:09 09/27/23 09:24 09/27/23 11:14 Temperature 97.2 F L Temperature Source Temporal Pulse Rate 81 Pulse Rate [Lying] 64 Pulse Rate [Sitting (for 1 minute prior to obtaining)] 67 Respiratory Rate 18 Respiratory Effort Normal Non-Labored Respiratory Pattern Normal Blood Pressure 159/92 H Blood Pressure [Lying] 169/96 H Blood Pressure [Sitting (for 1 minute prior to obtaining)] 158/109 H Blood Pressure Mean 114 Blood Pressure Mean [Lying] 120 Blood Pressure Mean [Sitting (for 1 minute prior to obtaining)] 125 Pulse Ox 92 Oxygen Delivery Method Room Air Physical Exam Const alert, oriented x3 and no apparent distress General Appearance: cooperative and well developed HEENT normocephalic, head/scalp atraumatic, moist oral mucous membranes and oropharynx normal Eyes PERRL and EOMs intact bilaterally Neck no lymphadenopathy, supple and no JVD Lymph Lymphatic: no lymphadenopathy noted and no lymphedema noted Resp normal respiratory effort, normal air movement and clear to auscultation bilaterally Cardio regular rate, regular rhythm, S1 normal heart sound, S2 normal heart sound and no murmurs GI normal to inspection, nondistended, normoactive bowel sounds, soft to palpation, non-tender and non-distended Extremity Extremity Narrative: RLE AKA, LLE warm to touch, palpable DP pulses Skin General Skin Exam: no breakdown Neuro CN's II-XII intact bilaterally and no focal motor deficits Motor Exam: general weakness Psych thought process normal and cooperative Appearance: appropriate Results Lab / Micro Data 09/27/23 10:30 09/27/23 10:30 Labs: Laboratory Results - last 24 hr 09/27/23 10:30: WBC 9.9, RBC 4.45 L, Hgb 14.3, Hct 43.2, MCV 97.1 H, MCH 32.1 H, MCHC 33.1, RDW Std Deviation 48.4 H, RDW Coeff of Valeria 13.4, Plt Count 113 L, MPV 13.9 H, Immature Gran % (Auto) 0.300, Neut % (Auto) 73.3 H, Lymph % (Auto) 17.2 L, [place] % (Auto) 7.3, Eos % (Auto) 1.2, Baso % (Auto) 0.7, Absolute Neuts (auto) 7.2, Absolute Lymphs (auto) 1.70, Nucleated RBC % 0, Sodium 142, Potassium 3.2 L, Chloride 110 H, Carbon Dioxide 29.0, Anion Gap 3 L, BUN 8, Creatinine 0.59 L, Est GFR (MDRD) Af Amer 183, Est GFR (MDRD) Non-Af 151, BUN/Creatinine Ratio 13.6, Glucose 95, Calcium 9.4 Rhythm Strip Rhythm Strip: Sinus Rhythm Rate: 1 Ectopy: None Imagaing Radiology Impression Brain CT 09/27/23 10:18 IMPRESSION: No acute intracranial process identified. Electronically Signed: Tami Schwartz MD at 11:17 EST Reading Location ID and State: [facility] / OR Tel , Service support , Chest X-Ray 09/27/23 10:45 IMPRESSION: Stable chest with no acute or active cardiopulmonary disease. Electronically Signed: Santiago Espinosa MD at 10:56 EST , Assessment & Plan Assessment/Plan (1) Dizziness: PLAN: Plan #Intractable dizziness patient admitted with a complaint of intractable dizziness which is not improving admit to PCU CT of the brain showed no acute intracranial pathology check orthostatics hydrate gently with iVF PT/OT on board. Fall precautions unable to do MRI of the brain as he has an ICD in place which is not MRI compatible will consult neurology start meclizine already on aspirin and plavix as well as statin # History of peripheral artery disease s/p right lower extremity AKA: On aspirin and statin. Also on cilostazol #History of arrhythmia: s/p ICD/defibrillator. Says he has been told that his defibrillator is and he is 3 months after the battery dies to get it changed. He is in the process of being worked up for it to be changed. Will order ICD interrogation. #History of DVT: On Xarelto #Benign essential hypertension: On metoprolol. IV hydralazine as needed #GERD: PPI #Nicotine dependence: Counseled to quit. Nicotine patch 21 mg daily #Depression: On bupropion and sertraline DVT prophylaxis: on xarelto already CODE STATUS: Full code Patient counseled extensively about different types of CODE STATUS including full code, DNR CCA and DNR CCA. Patient elects to be full code. Total uzpm-dt-idec time 16 minutes. Charges/Coding Visit Charges Inpatient E&M: 98463 Init Hosp L2 Procedures Hospitalists Procedures: 08624 Advncd Care Plan 30 Min
--- NOTE | 2023-09-27 12:09 | CT_ITS ---
HISTORY: intractable dizziness. TECHNIQUE: [place]/head and carotid CT angiogram protocol was performed after the intravenous administration of 100 mL Isovue 370. NASCET criteria using the distal ICAs for comparison were used for evaluation of stenoses. 3D reconstructions were reviewed. A radiation dose optimization technique was used for this scan. 1535 images. COMPARISON: CT head same day FINDINGS: AORTIC ARCH AND BRANCHES: Mild calcified plaque. RIGHT CCA/RIGHT ICA: Mild atherosclerosis of the common carotid bifurcation extending into the proximal internal carotid artery. No occlusion, significant stenosis or dissection. LEFT CCA/LEFT ICA: Mild atherosclerosis of the common carotid bifurcation extending into the proximal internal carotid artery. No occlusion, significant stenosis or dissection. Tortuous mid internal carotid artery. RIGHT VERTEBRAL ARTERY: No occlusion, significant stenosis or dissection. LEFT VERTEBRAL ARTERY: Originates directly off the arch. No occlusion, significant stenosis or dissection. SOFT TISSUES: Pacemaker defibrillator and midline sternotomy. Emphysema in the lung apices. ICAs: No significant stenosis at the intracranial/visualized segments. Mild calcified plaque at both carotid siphons. ACAs: No significant stenosis at the visualized segments. MCAs: No significant stenosis at the visualized segments. global technical writer: No significant stenosis at the visualized segments. BASILAR ARTERY: No significant stenosis. VERTEBRAL ARTERIES: No significant stenosis at the intradural/visualized segments. Mild calcified plaque at the intracranial right vertebral artery. No evidence of intracranial aneurysm or vascular malformation. CT/CTA Head AND Neck W/ Contrast IMPRESSION: No evidence for significant stenosis or occlusion in the carotid or vertebral arteries of the neck. No evidence for large vessel occlusion in the [place] region. Electronically Signed: Tami Schwartz MD at 13:50 EST ,
--- NOTE | 2023-09-27 12:24 | ECHOCS_ITS ---
Reason For Study: TIA/CVA Procedure This was a 2D Doppler, Color Flow transthoracic echocardiogram. The study was technically difficult. Exam performed portable in patient room. Patient scanned supine. Left Ventricle Normal LV size. Mild concentric left ventricular hypertrophy. The estimated ejection fraction is 55 %. Left ventricular systolic function is normal. Normal diastology for age. Basal inferoseptal: Hypokinetic. Mid-inferoseptal : Hypokinetic. There are regional wall motion abnormalities as specified. Right Ventricle Normal RV size. There is a pacemaker lead in the right ventricle. Normal systolic function. Atria The left and right atria are normal. ICD or pacer leads identified within the right atrium. Bubble contrast study negative for right to left interatrial shunt. Mitral Valve The mitral valve is structurally normal. No prolapse or stenosis seen. There is Mild focal posterior mitral annular calcification. Tricuspid Valve Normal tricuspid valve. Trivial tricuspid valve insufficiency. Right ventricular systolic pressure estimated to be 18 mmHg. Aortic Valve Trisinus/trileaflet aortic valve. Pulmonic Valve Normal pulmonic valve. Mild (1+) pulmonic valve insufficiency. Great Vessels Normal aortic root. Pericardium/Pleural No pericardial effusion. Medication Performed a rapid injection of agitated mix of 9 cc saline and 1cc air to assess for atrial septal defect. Diluted definity 1ml given slow IV push to enhance endocardial definition. MMode/2D Measurements & Calculations LVIDd: 5.2 cm IVSd: 1.2 cm Ao root diam: 3.6 cm LVIDs: 3.4 cm LVPWd: 1.3 cm RVDd: 3.2 cm FS: 33.4 % LAV(MOD-bp): 33.7 ml LVAd ap4: 31.8 cm2 LVAd ap2: 25.9 cm2 LAV(MOD-bp) Indexed: 18.3 ml/m2 LVLd ap4: 8.2 cm LVLd ap2: 8.4 cm LAV(MOD-sp2): 32.8 ml EDV(MOD-sp4): 103.9 ml EDV(MOD-sp2): 66.9 ml LAV(MOD-sp4): 34.4 ml EDV(sp4-el): 104.5 ml EDV(sp2-el): 67.8 ml LVAs ap4: 19.6 cm2 LVAs ap2: 12.5 cm2 LVLs ap4: 7.0 cm LVLs ap2: 7.3 cm ESV(MOD-sp4): 47.8 ml ESV(MOD-sp2): 17.5 ml ESV(sp4-el): 46.5 ml ESV(sp2-el): 18.0 ml EF(MOD-sp4): 54.0 % EF(MOD-sp2): 73.8 % EF(sp4-el): 55.5 % SV(MOD-sp4): 56.2 ml SV(MOD-sp2): 49.3 ml SV(sp4-el): 58.0 ml LA A4 area: 15.2 cm2 LA dimension(2D): 3.9 cm RA A4 area: 16.8 cm2 TAPSE: 2.6 cm Time Measurements MV dec time: 0.23 sec Doppler Measurements & Calculations MV E max alli: 78.8 cm/sec Lat Peak E' Alli: 11.4 cm/sec Med Peak E' Alli: 8.0 cm/sec MV A max alli: 102.5 cm/sec E/E' lat: 6.9 E/E' med: 9.8 MV E/A: 0.77 Ao V2 max: 161.1 cm/sec LV V1 max: 115.6 cm/sec MV dec slope: 347.1 cm/sec2 Ao max P.4 mmHg LV V1 max P.3 mmHg Ao V2 mean: 103.2 cm/sec LV V1 mean P.3 mmHg Ao mean P.2 mmHg LV V1 mean: 68.8 cm/sec Ao V2 VTI: 28.7 cm LV V1 VTI: 19.9 cm AV (velocity ratio): 0.69 PA V2 max: 104.5 cm/sec TR max alli: 190.4 cm/sec TR max P.5 mmHg ECHO/Echo Complete W/ Contrast Interpretation Summary The estimated ejection fraction is 55 %. Mild concentric left ventricular hypertrophy. There are regional wall motion abnormalities as specified. There is Mild focal posterior mitral annular calcification. Bubble contrast study negative for right to left interatrial shunt. The study was technically difficult. Contrast injection was performed. Ordering Physician: Leonor Adkins Referring Physician: Bud Dave Performed By: Stefany Rubio RDCS
[2023-09-27 13:53] LABS: Troponin-I HS 9 pg/mL (3.0-78.0)
[2023-09-27] MEDS: 0.9% Normal Saline (1000mL) 1,000 ML 125 ML IV ×2 (14:03→23:02)
[2023-09-27 15:23] LABS: Troponin-I HS 9 pg/mL (3.0-78.0)
[2023-09-27] MEDS: oxyCODONE 5 MG Tablet 10 MG PO ×2 (17:56→21:24)
[2023-09-27] MEDS: Ferrous Gluconate 324 MG Tablet PO (17:57)
[2023-09-27 19:28] LABS: Troponin-I HS 11 pg/mL (3.0-78.0)
[2023-09-27] MEDS: Tamsulosin HCl 0.4 MG Capsule 0.400000000000000022 MG PO (21:21)
[2023-09-27] MEDS: Atorvastatin Calcium 80 MG Tablet PO (21:21)
[2023-09-27] MEDS: Gabapentin 600 MG Tablet PO (21:21)
[2023-09-27] MEDS: Temazepam 15 MG Capsule PO (21:22)
[2023-09-27] MEDS: Cilostazol 50 MG Tablet PO (21:22)
[2023-09-27] MEDS: Metoprolol(XL)Succ 25 MG Tablet PO (21:22)
[2023-09-28] VITALS (9 sets, daily range): BP systolic 151–173; BP diastolic 92–117; PULSE 75–112; RESP 16–18; TEMP 36–37.1; O2SAT 92–95; BMI 22.4
[2023-09-28] MEDS: oxyCODONE 5 MG Tablet 10 MG PO ×2 (04:54→13:10)
[2023-09-28] MEDS: Gabapentin 600 MG Tablet PO ×2 (04:55→13:10)
[2023-09-28 06:55] LABS: Absolute Neutrophil Count 4.8 X10^3/uL (2.0-7.7); Basophil# 0.05 X10^3/uL; Basophil% 0.7 % (0-1); Eosinophil# 0.08 X10^3/uL; Eosinophils% 1.2 % (0-5); Hematocrit 41.9 % (40-54); Mean Corp Hgb Conc 33.4 g/dL (32-36); Mean Corpuscular Hgb 32.5 pg (27.0-32.0); Mean Corpuscular Volume 97.2 fL (80-94); Mean Platelet Vol. 13.6 fl (6.2-12.0); Monocyte# 0.57 X10^3/uL; Monocyte% 8.3 % (0-10); NRBC Flagged by Analyzer 0 % (0-5); Neutrophil # 4.84 X10^3/uL (2.7-7.7); Neutrophil % 70.5 % (47-70); Platelet Count 110 K/mm3 (150-450); RBC Distribution Width CV 13.4 % (11.6-14.6); RBC Distribution Width SD 48.8 fl (35.1-43.9); Red Blood Count 4.31 M/mm3 (4.6-6.2); White Blood Count 6.9 K/mm3 (4.4-11.0)
[2023-09-28 07:27] LABS: Anion Gap 4 (5-15); BUN 5 mg/dL (7-18); BUN/Creat Ratio 8.2 RATIO (10-20); Calcium,Total 8.8 mg/dL (8.5-10.1); Chloride 112 mmol/L (98-107); Cholesterol 132 mg/dL (200); Creatinine, Serum 0.61 mg/dL (0.70-1.30); EST Glomerular Filtration Rate 145 mL/min (>60); Est Glom Filt Rate - Afr Amer 176 mL/min (>60); Estimated Creatinine Clearance 135.41 ml/min; Glucose 92 mg/dL (74-106); High Density Lipoprotein 52 mg/dL; Potassium 3.2 mmol/L (3.5-5.1); Sodium Level 142 mmol/L (136-145); Triglycerides 179 mg/dL; Very Low Density Lipoprotein 36 mg/dL (5-40)
--- NOTE | 2023-09-28 10:03 | CON.PCM.NE_ITS ---
Assessment and Plan: Neuro Assessment/Plan MYRIAM LISA IV is a 58 M with a past medical history of PVD, RLE AKA, HLD, HTN, being evaluated by Teleneurology for vertigo. Symptoms resolved spontaneously and no additional symptoms to suggest acute stroke. Symptoms were transient and pt unable to get MRI (d/t ICD) so will repeat CTH to rule out large cerebellar stroke that would require additional monitoring. Exma currently benign. Cannot say if this is peripheral vertigo vs TIA/smalll stroke, although given history would be more concerned for peripheral vertigo Plan: - continue home xeralto and ASA, no need to change - continue home atorvastatin, LDL within goal < 70 - pt actively trying to stop smoking - SBP goal <130/80, discussed measuring BP with patient. - CTA without acute ICAD - PT if still symptomatic from vertigo - can obtain TTE as outpatient for additional testing although unclear this will exchange administrator as pt already on xeralto and ASA and not clear this is a cerebrovascular event. No further recommendations I personally attended this patient and spent a total time of 45 minutes evaluating this patient including clinical assessment, review of chart, medical history imaging, and determining appropriate treatment and workup. HPI Consult Data Date of Consult: 09/28/23 HPI Narrative HPI Narrative: MYRIAM LISA, is a 58 M with a PMH as outlined who presents via the ED On 09/27/2023 with a complaint of dizziness. He has peripheral disease s/p RLE AKA for peripheral vascular disease. He came in via the ED with a complaint of dizziness which started in the early hours of the day of admission. He woke up or down to go to the bathroom and said he felt very dizzy. He denied any lightheadedness or palpitations. He said in the morning when he woke up to and try to get out of bed he got very dizzy and was not able to carry out his activities of daily living. Dizziness was not worsened by movement. He denied any headache or recent history of head trauma. He has not had such dizziness before in the past. He denied any palpitation, nausea or vomiting or any decreased intake. Patient continues to smoke. He denied any focal weakness, numbness or tingling. Neurologic History Started Friday night, was sleeping and woke up to use restroom and was sweating very badly. Fell down on top of the toilet, did not hit head, but was because he was dizzy. Dizziness feels like dysequilibrium. Has had tinnitus in both ears for months now. No dec in hearing from ear. No dizziness when laying, no dizziness today. No nausea, no headache. No diplopia. No weakness more on one side than another, some numbness in the L foot. Uses walker and prosthetic at home. No dysarthria. Never had anything like this happen before. Things got better after a couple hrs in the ER and feels normal exam [facility] Medical History Alcohol use Arthritis Atherosclerosis of coronary artery without angina pectoris Blood in stool Depression Diarrhea DVT (deep venous thrombosis) Easy bruising Elevated LFTs Essential (primary) hypertension Fracture of left hip Gastric reflux GERD (gastroesophageal reflux disease) Hemorrhoids History of blood clots Hyperhomocysteinemia Hypertension Ischemia of right lower extremity Ischemic cardiomyopathy MRSA infection Peripheral vascular disease of extremity with claudication Postoperative atrial fibrillation (04/30/20) Recurrent syncope Smoker Superficial thrombophlebitis of left leg Tobacco abuse Uses wheelchair Ventricular tachycardia Wears dentures Wears glasses Weight loss, abnormal Home Medications aspirin 81 mg tablet,delayed release (Adult Aspirin Regimen) 81 mg PO DAILY 02/22/20 [History Last Taken 09/27/23] atorvastatin 80 mg tablet 80 mg PO DAILY 02/22/20 [History Last Taken 09/26/23] bupropion HCl 150 mg tablet,12 hr sustained-release 150 mg PO DAILY 02/22/20 [History Last Taken 09/27/23] multivitamin 1 tab PO DAILY 05/29/21 [History Last Taken 09/27/23] ferrous gluconate 324 mg (38 mg iron) tablet 324 mg PO BID anemia 02/05/22 [History Last Taken 09/26/23] rivaroxaban 20 mg tablet 20 mg PO QPM vascular insufficency 02/05/22 [History Last Taken 09/27/23] sertraline 50 mg tablet 50 mg PO DAILY 08/08/22 [History Last Taken 09/27/23] cilostazol 50 mg tablet 50 mg PO BID 04/07/23 [History Last Taken 09/27/23] gabapentin 600 mg tablet 600 mg PO TID 04/07/23 [History Last Taken 09/27/23 08:00] omeprazole 40 mg capsule,delayed release 40 mg PO DAILY 04/07/23 [History Last Taken 09/27/23] oxycodone 10 mg tablet 10 mg PO TID PRN severe pain (scale score 7-10) 04/07/23 [History Last Taken 09/26/23] metoprolol succinate 25 mg tablet,extended release 24 hr 25 mg PO BID 07/30/23 [History Last Taken 09/27/23] tamsulosin 0.4 mg capsule 0.4 mg PO .hs 07/30/23 [History Last Taken 09/26/23] temazepam 15 mg capsule 15 mg PO .hs 09/27/23 [History Last Taken 09/25/23] meclizine 25 mg tablet 25 mg PO BID PRN dizziness #30 tabs 09/28/23 [Rx Last Taken Unknown] Allergy/AdvReac Type Severity Reaction Status Date / Time shellfish derived Allergy Severe Swelling Verified 09/27/23 09:08 lorazepam [From Ativan] Allergy NEEDS Verified 09/27/23 09:08 FOLLOW-UP Family History Mother Heart disease Cancer Daughter Hyperhomocysteinemia Daughter Hyperhomocysteinemia Daughter Hyperhomocysteinemia Surgical History H/O coronary artery bypass surgery (04/27/20) History of coronary artery stent placement History of femoropopliteal bypass History of implantable cardiac defibrillator (ICD) (06/19/11) History of left heart catheterization (03/30/20) History of right above knee amputation (05/27/20) History of right below knee amputation (05/17/20) Status post femoral-popliteal bypass surgery Social History alcohol intake: current alcohol intake frequency: a few times a week Alcohol type: hard liquor substance use type: does not use caffeine: No Vital Signs Vital Signs Vital Signs: 09/27/23 11:14 09/27/23 11:55 09/27/23 13:22 Temperature 98.1 F 98.1 F Temperature Source Oral Pulse Rate 74 70 Pulse Rate [Lying] 64 Pulse Rate [Sitting (for 1 minute prior to obtaining)] 67 Pulse Rate [Standing (for 1 minute prior to obtaining)] Pulse Strength Respiratory Rate 13 18 Respiratory Effort Respiratory Depth Respiratory Pattern Blood Pressure 164/103 H 178/104 H Blood Pressure [Lying] 169/96 H Blood Pressure [Sitting (for 1 minute prior to obtaining)] 158/109 H Blood Pressure [Standing (for 1 minute prior to obtaining)] Blood Pressure Mean 123 128 Blood Pressure Mean [Lying] 120 Blood Pressure Mean [Sitting (for 1 minute prior to obtaining)] 125 Blood Pressure Mean [Standing (for 1 minute prior to obtaining)] Blood Pressure Source Monitor Blood Pressure Position Semi-Fowlers Blood Pressure Location Right Arm Pulse Ox 94 94 Oxygen Delivery Method Room Air 09/27/23 14:15 09/27/23 13:00 09/27/23 17:20 Temperature 98 F Temperature Source Oral Pulse Rate 66 Pulse Rate [Lying] Pulse Rate [Sitting (for 1 minute prior to obtaining)] Pulse Rate [Standing (for 1 minute prior to obtaining)] Pulse Strength Respiratory Rate 18 Respiratory Effort Normal Non-Labored Respiratory Depth Normal Respiratory Pattern Normal Blood Pressure 162/95 H Blood Pressure [Lying] Blood Pressure [Sitting (for 1 minute prior to obtaining)] Blood Pressure [Standing (for 1 minute prior to obtaining)] Blood Pressure Mean 117 Blood Pressure Mean [Lying] Blood Pressure Mean [Sitting (for 1 minute prior to obtaining)] Blood Pressure Mean [Standing (for 1 minute prior to obtaining)] Blood Pressure Source Monitor Blood Pressure Position Semi-Fowlers Blood Pressure Location Right Arm Pulse Ox 92 94 Oxygen Delivery Method Room Air Room Air Room Air 09/27/23 18:47 09/27/23 21:22 09/27/23 21:20 Temperature 98.2 F Temperature Source Temporal Pulse Rate 90 90 Pulse Rate [Lying] 88 Pulse Rate [Sitting (for 1 minute prior to obtaining)] 92 Pulse Rate [Standing (for 1 minute prior to obtaining)] 93 Pulse Strength Respiratory Rate 18 Respiratory Effort Respiratory Depth Respiratory Pattern Blood Pressure 167/105 H 167/105 H Blood Pressure [Lying] 157/96 H Blood Pressure [Sitting (for 1 minute prior to obtaining)] 171/107 H Blood Pressure [Standing (for 1 minute prior to obtaining)] 155/98 H Blood Pressure Mean 125 Blood Pressure Mean [Lying] 116 Blood Pressure Mean [Sitting (for 1 minute prior to obtaining)] 128 Blood Pressure Mean [Standing (for 1 minute prior to obtaining)] 117 Blood Pressure Source Monitor Blood Pressure Position Supine Blood Pressure Location Right Arm Pulse Ox 92 Oxygen Delivery Method Room Air 09/27/23 22:00 09/27/23 22:00 09/28/23 01:25 Temperature 96.8 F L Temperature Source Temporal Pulse Rate 82 Pulse Rate [Lying] Pulse Rate [Sitting (for 1 minute prior to obtaining)] Pulse Rate [Standing (for 1 minute prior to obtaining)] Pulse Strength Normal (2+) Respiratory Rate 18 Respiratory Effort Normal Non-Labored Respiratory Depth Normal Respiratory Pattern Normal Blood Pressure 155/93 H Blood Pressure [Lying] Blood Pressure [Sitting (for 1 minute prior to obtaining)] Blood Pressure [Standing (for 1 minute prior to obtaining)] Blood Pressure Mean 113 Blood Pressure Mean [Lying] Blood Pressure Mean [Sitting (for 1 minute prior to obtaining)] Blood Pressure Mean [Standing (for 1 minute prior to obtaining)] Blood Pressure Source Monitor Blood Pressure Position Semi-Fowlers Blood Pressure Location Right Arm Pulse Ox 94 Oxygen Delivery Method Room Air Room Air 09/28/23 01:25 09/28/23 05:02 09/28/23 05:00 Temperature 96.8 F L 98.4 F 98.4 F Temperature Source Temporal Temporal Temporal Pulse Rate 82 80 80 Pulse Rate [Lying] Pulse Rate [Sitting (for 1 minute prior to obtaining)] Pulse Rate [Standing (for 1 minute prior to obtaining)] Pulse Strength Respiratory Rate 18 18 18 Respiratory Effort Respiratory Depth Respiratory Pattern Blood Pressure 155/93 H 164/92 H 164/92 H Blood Pressure [Lying] Blood Pressure [Sitting (for 1 minute prior to obtaining)] Blood Pressure [Standing (for 1 minute prior to obtaining)] Blood Pressure Mean 113 116 116 Blood Pressure Mean [Lying] Blood Pressure Mean [Sitting (for 1 minute prior to obtaining)] Blood Pressure Mean [Standing (for 1 minute prior to obtaining)] Blood Pressure Source Monitor Monitor Monitor Blood Pressure Position Semi-Fowlers Semi-Fowlers Semi-Fowlers Blood Pressure Location Right Arm Right Arm Right Arm Pulse Ox 94 92 92 Oxygen Delivery Method Room Air Room Air Room Air 09/28/23 08:12 09/28/23 08:14 Temperature Temperature Source Pulse Rate Pulse Rate [Lying] Pulse Rate [Sitting (for 1 minute prior to obtaining)] Pulse Rate [Standing (for 1 minute prior to obtaining)] Pulse Strength Normal (2+) Respiratory Rate Respiratory Effort Normal Non-Labored Respiratory Depth Normal Respiratory Pattern Normal Blood Pressure Blood Pressure [Lying] Blood Pressure [Sitting (for 1 minute prior to obtaining)] Blood Pressure [Standing (for 1 minute prior to obtaining)] Blood Pressure Mean Blood Pressure Mean [Lying] Blood Pressure Mean [Sitting (for 1 minute prior to obtaining)] Blood Pressure Mean [Standing (for 1 minute prior to obtaining)] Blood Pressure Source Blood Pressure Position Blood Pressure Location Pulse Ox Oxygen Delivery Method Room Air Weight Weight: 70.8 kg Body Mass Index (BMI) 22.4 EEG Results Procedure Details EEG Procedure Details: \ NIHSS NIHSS Nursing Documentation NIHSS Nursing Documentation: NIHSS: Ischemic Stroke/TIA Start: 09/27/23 12:24 Text: For PCU Patients: NIH and Neuro Check every 4 Status: Active hours and PRN Freq: [id number] Protocol: Activity Type Activity Date Activity User E-sign Co-sign Detail Recorded Client Recorded Date Recorded By Document 09/28/23 05:00 ADR Desktop 09/28/23 05:05 ADR 09/28/23 05:00 NIH Stroke Scale [NIHSS] A score of 0 is normal or asymptomatic . Total possible score is 42. Inpatient: RN or Physician to activate a stroke alert for onset of new stroke symptoms or with NIHSS increase >/= 3 points. Following change in neurological status, NIHSS will be performed per physician order or more frequently PRN. -1a. Level of Consciousness Alert; keenly responsive -1b. LOC Questions Answers BOTH questions correctly. -1c. LOC Commands Performs both tasks correctly . -2. Best Gaze Normal -3. Visual No visual loss -4. Facial Palsy Normal symmetrical movements -5a. Left Arm No drift; arm holds 90 (or 45 ) degrees for full 10 seconds -5b. Right Arm No drift; arm holds 90 (or 45 ) degrees for full 10 seconds -6a. Left Leg No drift; leg holds 30-degree position for full 5 seconds -6b. Right Leg UN= Amputation or joint fusion , explain: -'UN' explanation right AKA -7. Limb Ataxia Absent -8. Sensory Normal; no sensory loss -9. Best Language No aphasia; normal -10. Dysarthria Normal -11. Extinction and Inattention No abnormality -Total 0 Query Text:A score of 0 is normal or asymptomatic. Total possible score is 42 . ED: Notify Physician for NIHSS increase by > / = 3 points. Inpatient: RN or Physician to activate a stroke alert for NIHSS increase of > / = 3 points. Coma Scale [Assess] -Eye Opening Spontaneous -Motor Obeys Commands -Verbal Oriented [Total] -Coma Scale Total 15 NIHSS 1a. Level of Consciousness: Alert; keenly responsive 1b. LOC Questions: Answers BOTH questions correctly. 1c. LOC Commands: Performs both tasks correctly. 2. Best Gaze: Normal 3. Visual: No visual loss 4. Facial Palsy: Normal symmetrical movements 5a. Left Arm: No drift; arm holds 90 (or 45) degrees for full 10 seconds 5b. Right Arm: No drift; arm holds 90 (or 45) degrees for full 10 seconds 6a. Left Leg: No drift; leg holds 30-degree position for full 5 seconds 6b. Right Leg: UN= Amputation or joint fusion, explain: 7. Limb Ataxia: Absent 8. Sensory: Normal; no sensory loss 9. Best Language: No aphasia; normal 10. Dysarthria: Normal 11. Extinction and Inattention: No abnormality Total: 0 Physical Exam Narrative -? General: Laying comfortably in bed; in no acute distress. -? HENT: Normal oropharynx and mucosa. Normal external appearance of ears and nose. Exophthalmos. -? Neck: Supple, no pain or tenderness -? CV:? No peripheral edema. -? Pulmonary:? Normal respiratory effort. -? Ext: No cyanosis, edema, or deformity -? Skin: No rash. Normal palpation of skin.? -? Musculoskeletal: full range of motion; no joint tenderness. Normal digits and nails by inspection. No clubbing. -? NEURO: -? Mental Status: The patient was alert and oriented to time, place, and person. Normal recent/remote memory, concentration, and general fund of knowledge. -? Language: speech is clear.? Naming, repetition, fluency, and comprehension intact. -? Cranial Nerves:. EOMI, visual lugo full, no facial asymmetry, facial sensation intact, hearing intact, tongue midline, no evidence of atrophy or fibrillations. -? Motor: normal bulk, tone, and strength throughout. No pronator drift or satelliting. Upper and lower extremities equal bilaterally. 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 Tone: is normal and bulk is normal -? Sensation- Intact to light touch bilaterally -? Coordination: No dysmetria on [id number], finger follow finger. Unable . -? Gait- deferred as prosthetic isn't present. Lab / Micro Data 09/28/23 06:15 09/28/23 06:15 Labs: Laboratory Results - last 24 hr 09/27/23 10:30: WBC 9.9, RBC 4.45 L, Hgb 14.3, Hct 43.2, MCV 97.1 H, MCH 32.1 H, MCHC 33.1, RDW Std Deviation 48.4 H, RDW Coeff of Valeria 13.4, Plt Count 113 L, MPV 13.9 H, Immature Gran % (Auto) 0.300, Neut % (Auto) 73.3 H, Lymph % (Auto) 17.2 L, [place] % (Auto) 7.3, Eos % (Auto) 1.2, Baso % (Auto) 0.7, Absolute Neuts (auto) 7.2, Absolute Lymphs (auto) 1.70, Nucleated RBC % 0, Sodium 142, Potassium 3.2 L, Chloride 110 H, Carbon Dioxide 29.0, Anion Gap 3 L, BUN 8, Creatinine 0.59 L, Est GFR (MDRD) Af Amer 183, Est GFR (MDRD) Non-Af 151, BUN/Creatinine Ratio 13.6, Glucose 95, Calcium 9.4 09/27/23 13:25: Troponin I High Sens 9 09/27/23 14:58: Troponin I High Sens 9 09/27/23 19:00: Troponin I High Sens 11 09/28/23 06:15: WBC 6.9, RBC 4.31 L, Hgb 14.0, Hct 41.9, MCV 97.2 H, MCH 32.5 H, MCHC 33.4, RDW Std Deviation 48.8 H, RDW Coeff of Valeria 13.4, Plt Count 110 L, MP V 13.6 H, Immature Gran % (Auto) 0.300, Neut % (Auto) 70.5 H, Lymph % (Auto) 19.0, [place] % (Auto) 8.3, Eos % (Auto) 1.2, Baso % (Auto) 0.7, Absolute Neuts (auto) 4.8, Absolute Lymphs (auto) 1.30, Nucleated RBC % 0, Sodium 142, Potassium 3.2 L, Chloride 112 H, Carbon Dioxide 26.0, Anion Gap 4 L, BUN 5 L, Creatinine 0.61 L, Estim Creat Clear Calc 135.41, Est GFR (MDRD) Af Amer 176, Est GFR (MDRD) Non-Af 145, BUN/Creatinine Ratio 8.2 L, Glucose 92, Calcium 8.8, Triglycerides 179, Cholesterol 132, LDL Cholesterol 44, VLDL Cholesterol 36, HDL Cholesterol 52 Rhythm Strip Rhythm Strip: Sinus Rhythm Rate: 1 Ectopy: None Imagaing Radiology Impression Brain CT 09/27/23 10:18 IMPRESSION: No acute intracranial process identified. Electronically Signed: Tami Schwartz MD at 11:17 EST , Chest X-Ray 09/27/23 10:45 IMPRESSION: Stable chest with no acute or active cardiopulmonary disease. Electronically Signed: Santiago Espinosa MD at 10:56 EST , Head/Neck CTA 09/27/23 12:09 IMPRESSION: No evidence for significant stenosis or occlusion in the carotid or vertebral arteries of the neck. No evidence for large vessel occlusion in the [place]. Electronically Signed: Tami Schwartz MD at 13:50 EST , Active Medications Active Medications Active Medications: Current Medications Generic Name Dose Route Start Last Admin Trade Name Freq PRN Reason Stop Dose Admin Acetaminophen 650 mg 09/27/23 12:24 Acetaminophen 325 Mg Tablet PO Q6H PRN PRN Pain 1-10 Or Fever>100.7 Aspirin 81 mg 09/28/23 08:00 Aspirin E.C. 81 Mg Tablet PO BREAKFAST SIMONA Atorvastatin Calcium 80 mg 09/27/23 22:00 09/27/23 21:21 Atorvastatin Calcium 80 Mg Tablet PO 80 mg QHS SIMONA Administration Bupropion HCl 150 mg 09/28/23 10:00 Bupropion (Sr) 150 Mg Tablet.Sa PO DAILY SIMONA Cilostazol 50 mg 09/27/23 22:00 09/27/23 21:22 Cilostazol 50 Mg Tablet PO 50 mg BID SIMONA Administration Ferrous Gluconate 324 mg 09/27/23 17:00 09/27/23 17:57 Ferrous Gluconate 324 Mg Tablet PO 324 mg BIDLS SIMONA Administration Gabapentin 600 mg 09/27/23 22:00 09/28/23 04:55 Gabapentin 600 Mg Tablet PO 600 mg TID SIMONA Administration Hydralazine HCl 5 mg 09/27/23 12:24 Hydralazine 20 Mg/Ml Vial IV Q30M PRN to maintain BP goals Sodium Chloride 250 mls @ 15 mls/hr 09/27/23 13:24 IV .[id number] PRN Additional IVPB Infusion Sodium Chloride 250 mls @ 15 mls/hr 09/27/23 13:24 IV .[id number] PRN Saline Flush Labetalol HCl 10 - 20 mg 09/27/23 12:24 Labetalol (Prefilled) 20 Mg/4 Ml IV Q10M PRN PRN to Maintain BP Goals Metoprolol Succinate 25 mg 09/27/23 22:00 09/27/23 21:22 Metoprolol(Xl)Succ 25 Mg Tablet PO 25 mg BID SIMONA Administration Protocol Multivitamins 1 tablet 09/28/23 12:00 Multivitamins,Therapeutic Tablet PO LUNCH SIMONA Nitroglycerin 0.4 mg 09/27/23 12:24 Nitroglycerin (Inpatient Use) 0.4 Mg Tab.Subl SL Q5M PRN CARDIAC/CHEST PAIN Ondansetron HCl 4 mg 09/27/23 12:24 Ondansetron 4 Mg/2 Ml Vial IV Q8H PRN PRN NAUSEA/VOMITING Oxycodone HCl 10 mg 09/27/23 14:39 09/28/23 04:54 Oxycodone 5 Mg Tablet PO 10 mg TID PRN PRN Administration severe pain (scale score 7-10) Pantoprazole Sodium 40 mg 09/28/23 10:00 Pantoprazole Sodium 40 Mg Tablet PO DAILY SIMONA Rivaroxaban 20 mg 09/27/23 17:00 09/27/23 17:57 Rivaroxaban 20 Mg Tablet PO Not Given DINNER SIMONA Sertraline HCl 50 mg 09/28/23 10:00 Sertraline 50 Mg Tablet PO DAILY SIMONA Sodium Chloride 10 - 40 ml 09/27/23 13:24 0.9% Saline Lock 10 Ml Syringe IV UD PRN SALINE FLUSH Tamsulosin HCl 0.4 mg 09/27/23 21:00 09/27/23 21:21 Tamsulosin Hcl 0.4 Mg Capsule PO 0.4 mg QPM SIMONA Administration Temazepam 15 mg 09/27/23 22:00 09/27/23 21:22 Temazepam 15 Mg Capsule PO 15 mg QHS SIMONA Administration
--- NOTE | 2023-09-28 10:48 | CT_ITS ---
STUDY: CT BRAIN WITHOUT CONTRAST REASON FOR EXAM: Male, 58 years old. intractable dizziness RADIATION DOSAGE (If Supplied By Facility): CTDIvol = ( 44.99 ) mGy, DLP = ( 779.24 ) mGycm TECHNIQUE: Transaxial CT imaging of the brain was performed without administration of intravenous contrast material. Individualized dose optimization techniques were used for this CT. COMPARISON: 09/27/2023 FINDINGS: Normal soft tissue structures. Normal calvarium. There is mild cerebral atrophy with widening of the extra-axial spaces and ventricular dilatation. Normal white matter tracts of the cerebral hemispheres. Normal basal ganglia and thalami. Normal brainstem. Normal cerebellum. There is no intracranial hemorrhage. There are no findings of an acute ischemic infarction. Normal visualized paranasal sinuses. CT/Brain/Head without Contrast IMPRESSION: Chronic involutional changes of the brain. Electronically Signed: Remy Mc MD at 12:35 EST ,
[2023-09-28] MEDS: buPROPion (SR) 150 MG Tablet.SA PO (10:50)
[2023-09-28] MEDS: Metoprolol(XL)Succ 25 MG Tablet PO (10:50)
[2023-09-28] MEDS: Aspirin E.C. 81 MG Tablet PO (10:51)
[2023-09-28] MEDS: Cilostazol 50 MG Tablet PO (10:51)
[2023-09-28] MEDS: Potassium Chloride Oral Tablet 20 MEQ 40 MEQ PO (10:51)
[2023-09-28] MEDS: Sertraline 50 MG Tablet PO (10:51)
[2023-09-28] MEDS: Pantoprazole Sodium 40 MG Tablet PO (10:52)
[2023-09-28] MEDS: Ferrous Gluconate 324 MG Tablet PO (11:48)
[2023-09-28] MEDS: Acetaminophen 325 MG Tablet 650 MG PO (11:48)
[2023-09-28] MEDS: Multivitamins,Therapeutic Tablet 1 TABLET PO (11:48)
--- NOTE | 2023-09-28 13:02 | DCINST_ITS ---
Discharge Instructions Diet Discharge Diet: Low fat / Low cholesterol Activity Discharge Activity: Return to Normal Activity Weight Bearing Status: Weight bearing as tolerated Dressing / Incision Call your doctor if you observe: Fever of 101 or Higher, Shortness of breath, Dizziness, Swelling in the ankles and Chest pain Follow Up Care Test Results: Test results from this visit will be discussed in further detail at your follow- up appointment, if applicable. Discharge Plan Admission Admit Date/Time: 09/27/23 12:03 Primary Reason for Your Visit: dizziness Attending Provider: Leonor Adkins Primary Care Provider: Bud Dave Consulting Providers: Stan Lozoya; Akila Saunders; Shagufta Minor; Bela Jane; Laura Plasencia; Ruddy Espino; Ange Hernandez; Kraig Chapin; Larry Berger; Lauren Zamarripa; Wali Adler; Mere Leiva; Alma Thomas; Ok Hough; John Mustafa; Jarod Shields; Jorje Garcia; Jennifer Denise; Natalia Batista Instructions Patient Instructions: ED Dizziness, Uncertain Cause Discharge Orders/Prescriptions Prescriptions: New meclizine 25 mg tablet 25 mg PO BID PRN (Reason: dizziness) Qty: 30 0RF Continued atorvastatin 80 mg tablet 80 mg PO DAILY bupropion HCl 150 mg tablet sustained-release 12 hr 150 mg PO DAILY aspirin [Adult Aspirin Regimen] 81 mg tablet,delayed release (DR/EC) 81 mg PO DAILY ferrous gluconate 324 mg (38 mg iron) tablet 324 mg PO BID Patient Comments: 1 TABLET ORALLY DAILY WITH WATER OR JUICE BETWEEN MEALS rivaroxaban 20 mg tablet 20 mg PO QPM sertraline 50 mg tablet 50 mg PO DAILY gabapentin 600 mg tablet 600 mg PO TID Patient Comments: TAKE 1 TABLET BY MOUTH THREE TIMES A DAY cilostazol 50 mg tablet 50 mg PO BID Patient Comments: TAKE 1 TABLET BY MOUTH TWICE A DAY omeprazole 40 mg capsule,delayed release(DR/EC) 40 mg PO DAILY Patient Comments: TAKE 1 CAPSULE BY MOUTH EVERY DAY oxycodone 10 mg tablet 10 mg PO TID PRN (Reason: severe pain (scale score 7-10)) Patient Comments: 1-1.5 TABLETS BY MOUTH 3 TIMES A DAY NEEDED SEVERE PAIN tamsulosin 0.4 mg capsule 0.4 mg PO .hs Patient Comments: ONE CAPSULE BY MOUTH DAILY AT NIGHT metoprolol succinate 25 mg tablet extended release 24 hr 25 mg PO BID multivitamin Tablet 1 tab PO DAILY temazepam 15 mg capsule 15 mg PO .hs Patient Comments: 1 CAPSULE BY MOUTH DAILY AT BEDTIME NEEDED Referrals / Follow Up: Bud Dave DO [Primary Care Provider] - Within 2 Weeks Disposition Disposition (needs filled in before D/C Order can be placed): Home, Self Care
--- NOTE | 2023-09-28 13:06 | DS.PCM_ITS ---
Providers Date of Admission: 09/27/23 Date of Discharge: 09/28/23 Primary Care Physician: Dr. Bud Dave, DO Consultations 09/27/23 14:37 Neurology [Consult: Tele-Neurology] Routine Consulting Provider: [facility] Reason for Consult: intractable dizziness EMERGENT Consult: No MD Notified: Yes Date Notified: 09/27/23 Time Notified: 14:37 Method of Notification: Answering Service Comments:: unable to get MRI to rule out stroke Nursing Unit Staff Notify [facility] of Tele-Neurology Consult: Yes Reason For Visit: INTRACTABLE DIZZINESS Diagnosis Discharge Diagnosis (1) Dizziness: Status: Acute Code(s): R42 - Dizziness and giddiness Plan #Intractable dizziness * patient admitted with a complaint of intractable dizziness which is not improving * admit to PCU * CT of the brain showed no acute intracranial pathology * check orthostatics * hydrate gently with iVF * PT/OT on board. Fall precautions * unable to do MRI of the brain as he has an ICD in place which is not MRI compatible * will consult neurology * start meclizine * already on aspirin and plavix as well as statin * # History of peripheral artery disease s/p right lower extremity AKA: On aspirin and statin. Also on cilostazol #History of arrhythmia: * s/p ICD/defibrillator. Says he has been told that his defibrillator is and he is 3 months after the battery dies to get it changed. * He is in the process of being worked up for it to be changed. * Will order ICD interrogation. * #History of DVT: On Xarelto #Benign essential hypertension: On metoprolol. IV hydralazine as needed #GERD: PPI #Nicotine dependence: Counseled to quit. Nicotine patch 21 mg daily #Depression: On bupropion and sertraline DVT prophylaxis: on xarelto already CODE STATUS: Full code * Patient counseled extensively about different types of CODE STATUS including full code, DNR CCA and DNR CCA. Patient elects to be full code. Total [id number] time 16 minutes. Medications at Discharge Home Medications aspirin 81 mg tablet,delayed release (Adult Aspirin Regimen) 81 mg PO DAILY 02/22/20 atorvastatin 80 mg tablet 80 mg PO DAILY 02/22/20 bupropion HCl 150 mg tablet,12 hr sustained-release 150 mg PO DAILY 02/22/20 multivitamin 1 tab PO DAILY 05/29/21 ferrous gluconate 324 mg (38 mg iron) tablet 324 mg PO BID anemia 02/05/22 rivaroxaban 20 mg tablet 20 mg PO QPM vascular insufficency 02/05/22 sertraline 50 mg tablet 50 mg PO DAILY 08/08/22 cilostazol 50 mg tablet 50 mg PO BID 04/07/23 gabapentin 600 mg tablet 600 mg PO TID 04/07/23 omeprazole 40 mg capsule,delayed release 40 mg PO DAILY 04/07/23 oxycodone 10 mg tablet 10 mg PO TID PRN severe pain (scale score 7-10) 04/07/23 metoprolol succinate 25 mg tablet,extended release 24 hr 25 mg PO BID 07/30/23 tamsulosin 0.4 mg capsule 0.4 mg PO .hs 07/30/23 temazepam 15 mg capsule 15 mg PO .hs 09/27/23 meclizine 25 mg tablet 25 mg PO BID PRN dizziness #30 tabs 09/28/23 Hospital Course Operations None Procedures 2-D Echocardiogram Summary of Care Provided Minutes Spent on Discharge: 48 Hospital Course: MYRIAM LISA, is a 58 M with a PMH as outlined who presents via the ED On 09/27/2023 with a complaint of dizziness. He has peripheral disease s/p RLE AKA for peripheral vascular disease. He came in via the ED with a complaint of dizziness which started in the early hours of the day of admission. He woke up or down to go to the bathroom and said he felt very dizzy. He denied any lightheadedness or palpitations. He said in the morning when he woke up to and try to get out of bed he got very dizzy and was not able to carry out his activities of daily living. Dizziness was not worsened by movement. He denied any headache or recent history of head trauma. He has not had such dizziness before in the past. He denied any palpitation, nausea or vomiting or any decreased intake. Patient continues to smoke. He denied any focal weakness, numbness or tingling. She did not have any palpitations or any other symptoms. Review of systems otherwise negative. Vitals at time of review with temperature of 98.1 Fahrenheit, blood pressure 162/123. Respiratory rate of 13 and pulse rate of 74. He was saturating at 94% on room air. CBC showed hb of 14.3, wbc of 9.9 and platelets of 113. CHemistry showed sodium of 142, potassium of 3.[address] of [address]. [address] brain showed no acute intracranial pathology. CXR showed no acute cardiopulmonary process. He was admitted for intractable dizziness to rule out a stroke. Orthostatics were checked and were negative. Dizziness improved significantly and he felt much better. Neurology was consulted. Neurology recommended a repeat CT of the brain as patient could not have MRI in light of his ICD. Repeat CT of the brain was negative for any evidence of intracranial pathology. Per neurology, his dizziness was more likely peripheral. Patient had had his pacemaker interrogated on 09/10/2023 and there was no evidence of any discharge o r firing. Patient said he had been told that his ICD battery had . He followed up at [facility] on 09/25/2023 and said he had been scheduled for ICD replacement in October 2023. Patient was continued on his aspirin and Lipitor as well as Xarelto. Orthostatics were checked again before discharge. They were again negative. Patient felt stable and was discharged home on 09/28/2023. He was counseled to quit smoking. He is to follow-up with his primary care doctor within 1 to 2 weeks. He was also counseled to be compliant with his blood pressure medication. He was given a prescription for meclizine to take as needed for dizziness. Of note he did have 2D echo done which showed EF of 55% with mild concentric left ventricular hypertrophy and no regional wall motion abnormalities noted with bubble study being negative for any shunt. Patient seen and examined prior to discharge. He had no complaints. Review of systems otherwise negative. Labs and vitals reviewed. Home medication reviewed and reconciled. Physical Exam Const alert, oriented x3 and no apparent distress General Appearance: cooperative, comfortable, well kempt and well developed Exam Limitations: no limitations HEENT normocephalic, head/scalp atraumatic, hearing grossly normal bilaterally, moist oral mucous membranes and oropharynx normal Eyes PERRL and EOMs intact bilaterally Neck no lymphadenopathy, supple and no JVD Lymph Lymphatic: no lymphadenopathy noted and no lymphedema noted Resp normal respiratory effort, normal air movement and clear to auscultation bilaterally Cardio regular rate, regular rhythm, S1 normal heart sound, S2 normal heart sound and no murmurs GI normal to inspection, nondistended, normoactive bowel sounds, soft to palpation, non-tender and non-distended Extremity Extremity Narrative: RLE AKA, LLE warm to touch, palpable DP pulses Skin General Skin Exam: no breakdown Neuro CN's II-XII intact bilaterally and no focal motor deficits Motor Exam: general weakness Psych thought process normal and cooperative Appearance: appropriate Weight / BMI Weight Weight: 156 lb 1.396 oz Body Mass Index (BMI) 22.4 ABG / Lab / Microbiology Data 09/28/23 06:15 09/28/23 06:15 Laboratory: Laboratory Results - last 24 hr 09/27/23 13:25: Troponin I High Sens 9 09/27/23 14:58: Troponin I High Sens 9 09/27/23 19:00: Troponin I High Sens 11 09/28/23 06:15: WBC 6.9, RBC 4.31 L, Hgb 14.0, Hct 41.9, MCV 97.2 H, MCH 32.5 H, MCHC 33.4, RDW Std Deviation 48.8 H, RDW Coeff of Valeria 13.4, Plt Count 110 L, MPV 13.6 H, Immature Gran % (Auto) 0.300, Neut % (Auto) 70.5 H, Lymph % (Auto) 19.0, [place] % (Auto) 8.3, Eos % (Auto) 1.2, Baso % (Auto) 0.7, Absolute Neuts (auto) 4.8, Absolute Lymphs (auto) 1.30, Nucleated RBC % 0, Sodium 142, Potassium 3.2 L , Chloride 112 H, Carbon Dioxide 26.0, Anion Gap 4 L, BUN 5 L, Creatinine 0.61 L , Estim Creat Clear Calc 135.41, Est GFR (MDRD) Af Amer 176, Est GFR (MDRD) Non- Af 145, BUN/Creatinine Ratio 8.2 L, Glucose 92, Calcium 8.8, Triglycerides 179, Cholesterol 132, LDL Cholesterol 44, VLDL Cholesterol 36, HDL Cholesterol 52 Radiography Diagnostic Testing: Radiology Impression Head/Neck CTA 09/27/23 12:09 IMPRESSION: No evidence for significant stenosis or occlusion in the carotid or vertebral arteries of the neck. No evidence for large vessel occlusion in the [place] region. Electronically Signed: Tami Schwartz MD at 13:50 EST , Echocardiogram 09/27/23 12:24 Interpretation Summary The estimated ejection fraction is 55 %. Mild concentric left ventricular hypertrophy. There are regional wall motion abnormalities as specified. There is Mild focal posterior mitral annular calcification. Bubble contrast study negative for right to left interatrial shunt. The study was technically difficult. Contrast injection was performed. Ordering Physician: Leonor Adkins Referring Physician: Bud Dave Performed By: Stefany Rubio RDCS Brain CT 09/28/23 10:48 IMPRESSION: Chronic involutional changes of the brain. Electronically Signed: Remy Mc MD at 12:35 EST , D/C Instructions Discharge Diet: Low fat / Low cholesterol Weight Bearing Status: Weight bearing as tolerated Call your doctor if you observe: Fever of 101 or Higher, Shortness of breath, Dizziness, Swelling in the ankles and Chest pain Meaningful Use Info Meaningful Use Diagnoses (Choose all that apply): None applicable Discharge Plan Admission Admit Date/Time: 09/27/23 12:03 Primary Reason for Your Visit: dizziness Attending Provider: Leonor Adkins Primary Care Provider: Bud Dave Consulting Providers: Stan Lozoya; Akila Saunders; Shagufta Minor; Bela Jane; Laura Plasencia; Ruddy Espino; Ange Hernandez; Kraig Chapin; Larry Berger; Lauren Zamarripa; Wali Adler; Mere Leiva; Alma Thomas; Ok Hough; John Mustafa; Jarod Shields; Jorje Garcia; Jennifer Denise; Natalia Batista Instructions Patient Instructions: ED Dizziness, Uncertain Cause Discharge Orders/Prescriptions Prescriptions: New meclizine 25 mg tablet 25 mg PO BID PRN (Reason: dizziness) Qty: 30 0RF Continued atorvastatin 80 mg tablet 80 mg PO DAILY bupropion HCl 150 mg tablet sustained-release 12 hr 150 mg PO DAILY aspirin [Adult Aspirin Regimen] 81 mg tablet,delayed release (DR/EC) 81 mg PO DAILY ferrous gluconate 324 mg (38 mg iron) tablet 324 mg PO BID Patient Comments: 1 TABLET ORALLY DAILY WITH WATER OR JUICE BETWEEN MEALS rivaroxaban 20 mg tablet 20 mg PO QPM sertraline 50 mg tablet 50 mg PO DAILY gabapentin 600 mg tablet 600 mg PO TID Patient Comments: TAKE 1 TABLET BY MOUTH THREE TIMES A DAY cilostazol 50 mg tablet 50 mg PO BID Patient Comments: TAKE 1 TABLET BY MOUTH TWICE A DAY omeprazole 40 mg capsule,delayed release(DR/EC) 40 mg PO DAILY Patient Comments: TAKE 1 CAPSULE BY MOUTH EVERY DAY oxycodone 10 mg tablet 10 mg PO TID PRN (Reason: severe pain (scale score 7-10)) Patient Comments: 1-1.5 TABLETS BY MOUTH 3 TIMES A DAY NEEDED SEVERE PAIN tamsulosin 0.4 mg capsule 0.4 mg PO .hs Patient Comments: ONE CAPSULE BY MOUTH DAILY AT NIGHT metoprolol succinate 25 mg tablet extended release 24 hr 25 mg PO BID multivitamin Tablet 1 tab PO DAILY temazepam 15 mg capsule 15 mg PO .hs Patient Comments: 1 CAPSULE BY MOUTH DAILY AT BEDTIME NEEDED Referrals / Follow Up: Bud Dave DO [Primary Care Provider] - Within 2 Weeks Disposition Disposition (needs filled in before D/C Order can be placed): Home, Self Care Charges/Coding Visit Charges Inpatient E&M: 49188 Disch Hosp >30min
[2023-09-28] MEDS: 0.9% Saline Lock 10 ML Syringe IV (14:43)
[2023-09-28] MEDS: hydrALAZINE 20 MG/ML Vial 10 MG IV (14:43)
== END 2023-09-28 13:02 | disposition home or self-care (01) ==
LOC: ED 12:03 → PCU 12:14
PROVIDERS: Admitting Provider Student in an Organized Health Care Education/Training Program; Emergency Provider Emergency Medicine; PCP Family Medicine; Visit Provider Student in an Organized Health Care Education/Training Program
DX: R42 Dizziness and giddiness (principal); Z89.611 Acquired absence of right leg above knee; I73.9 Peripheral vascular disease, unspecified; I25.10 Atherosclerotic heart disease of native coronary artery without angina pectoris; I10 Essential (primary) hypertension; I25.5 Ischemic cardiomyopathy; Z95.5 Presence of coronary angioplasty implant and graft; Z79.82 Long term (current) use of aspirin; F17.210 Nicotine dependence, cigarettes, uncomplicated; Z86.718 Personal history of other venous thrombosis and embolism; Z79.01 Long term (current) use of anticoagulants; Z95.810 Presence of automatic (implantable) cardiac defibrillator; Z79.899 Other long term (current) drug therapy; I25.2 Old myocardial infarction; K21.9 Gastro-esophageal reflux disease without esophagitis; F32.A Depression, unspecified
CPT/HCPCS: 36415; 70450; 70496; 70498; 71045; 80048; 80061; 84484; 85025; 93005; 93306; 94762; 96361; 96374; 97162; 97165; 99221; 99285; J7030; J7040; Q9957; Q9967; A4216; C8929; G0378

== ENCOUNTER → 2023-11-10 | Outpatient (CLI) | payer BC, MEDICARE, SELFPAY ==
[2023-11-10 10:42] LABS: Color, Urine Amber (Yellow); Glucose, Dipstick Normal (Normal); Ketone-Dipstick 5 mg/dl (Negative); Leukocyte Esterase-Dipstick 25 /ul (Negative); Nitrite-Dipstick Positive (Negative); Occult Blood-Urine 250 /ul (Negative); Protein-Dipstick 100 mg/dl (Negative); Urine Clarity Cloudy (Clear); Urine Urobilinogen 1 mg/dl (Normal)
[2023-11-10 10:46] LABS: Urine Bilirubin Dipstick 1 mg/dL (Negative)
[2023-11-10 11:14] LABS: Anion Gap 5 (5-15); BUN 10 mg/dL (7-18); BUN/Creat Ratio 16.3 RATIO (10-20); Calcium,Total 9.1 mg/dL (8.5-10.1); Chloride 107 mmol/L (98-107); Creatinine, Serum 0.62 mg/dL (0.70-1.30); EST Glomerular Filtration Rate 144 mL/min (>60); Est Glom Filt Rate - Afr Amer 174 mL/min (>60); Glucose 89 mg/dL (74-106); Potassium 3.2 mmol/L (3.5-5.1); Sodium Level 140 mmol/L (136-145)
== END | disposition home or self-care (01) ==
LOC: LAB 10:06
PROVIDERS: PCP Family Medicine; Referring Provider Nurse Practitioner Gerontology; Visit Provider Nurse Practitioner Gerontology
DX: R31.9 Hematuria, unspecified (principal); I10 Essential (primary) hypertension
CPT/HCPCS: 36415; 80048; 81002; 87086; 87088

== ENCOUNTER → 2023-11-13 | Outpatient (CLI) | payer BC, MEDICARE, SELFPAY ==
--- NOTE | 2023-11-13 12:15 | BD_ITS ---
STUDY: DUAL ENERGY X-RAY ABSORPTIOMETRY / DXA REASON FOR EXAM: Male, 58 years old. S32.000D TECHNIQUE: Bone Mineral Density (BMD) measurements of lumbar spine and right hip were obtained. COMPARISON: None. FINDINGS: Lumbar Spine (L1-L4): g/cm2 (0.650) / T-score (-4.0) / Z-score (-3.4) Findings are suggestive of osteoporosis with a high fracture risk. Right Femur Total: g/cm2 (0.489) / T-score (-3.6) / Z-score (-3.2) Right Femoral Neck: g/cm2 (0.398) / T-score (-3.9) / Z-score (-3.0) BD/Dexa Bone Density Study IMPRESSION: The patient is considered osteoporotic as outlined below according to World Dg Organization (WHO) criteria with a high fracture risk. Reference Information: The T-score is the number of standard deviations above or below the standard which is normal for young adults at their peak bone mineral density. The World Health Organization (WHO) interprets the T-scores as follows: Above -1 Normal bone density Between -1 and -2.5 Osteopenia Equal to / or below -2.5 Osteoporosis As a practical clinical guideline, osteopenia may be graded as follows: Mild -1 through -1.5 Moderate -1.6 through -2.0 Severe -2.1 through -2.4 The Z-score is the number of standard deviations above or below age-matched controls. A Z-score of less than -1.5 would be considered abnormal. References: 1. NIH Osteoporosis and Related Bone Diseases www osteo.org 2. International Society for Clinical Densitometry www iscd.org 3. National Osteoporosis Foundation www nof.org Electronically Signed: Zia Ortiz MD at 9:51 EST ,
== END | disposition home or self-care (01) ==
PROVIDERS: PCP Family Medicine; Referring Provider Family Medicine; Visit Provider Family Medicine
DX: S32.000D Wedge compression fracture of unspecified lumbar vertebra, subsequent encounter for fracture with routine healing (principal)
CPT/HCPCS: 77080

== ENCOUNTER → 2023-12-10 | Outpatient (CLI) | payer BC, MEDICARE, SELFPAY ==
--- NOTE | 2023-12-10 06:09 | CDU_ITS ---
Reason For Study: Dizziness Rt. Velocities/BP Lt. Velocities/BP Prox CCA 40/8.8 cm/sec. Prox CCA 83.9/12.4 cm/sec. Mid CCA 53.5/5.5 cm/sec. Mid CCA 58.6/10.2 cm/sec. Dist CCA 54.3/10.7 cm/sec. Dist CCA 47.6/8 cm/sec. Prox ICA 33.7/5.2 cm/sec. Prox ICA 43.7/6.9 cm/sec. Mid ICA 43.5/5.5 cm/sec. Mid ICA 74/24.8 cm/sec. Dist ICA 67.6/14.1 cm/sec. Dist ICA 57/15.4 cm/sec. Rt. ICA/CCA = 1.26. Lt. ICA/CCA = 1.26. Prox ECA 48.2/6.4 cm/sec. Prox ECA 102.3/10.2 cm/sec. Rt. Vert. 55.3/8 cm/sec. Lt. Vert. 51.3/14.5 cm/sec. Right Extracranial There is intimal thickening but no significant atherosclerotic plaque noted in the right common carotid artery. There is heterogeneous, irregular atherosclerotic plaque noted in the right internal carotid artery. The right internal carotid artery is very tortuous. There is intimal thickening but no significant atherosclerotic plaque noted in the right external carotid artery. Antegrade flow is noted in the right vertebral artery. Left Extracranial There is intimal thickening but no significant atherosclerotic plaque noted in the left common carotid artery. There is heterogeneous, irregular atherosclerotic plaque noted in the left internal carotid artery. There is intimal thickening but no significant atherosclerotic plaque noted in the left external carotid artery. Antegrade flow is noted in the left vertebral artery. Procedure Carotid Duplex 36352. This is a Carotid Duplex examination using B-mode, color flow and specral Doppler. The study was technically difficult. Exam performed in department. VL/Carotid Duplex Ultrasound Interpretation Summary Mild (<50%) stenosis right extracranial internal carotid. Mild (<50%) stenosis left extracranial internal carotid. Patent and antegrade vertebrals bilaterally. Ordering Physician: Nichole Dobbs Referring Physician: Bud Dave Performed By: Nanda Payton RVT
--- NOTE | 2023-12-10 17:44 | STRESSREP ---
Stress Test Report Pharmacologic myocardial perfusion stress test. 58-year-old man with a history of coronary disease and dizziness Stress protocol: Resting EKG demonstrates normal sinus rhythm with a rate of 75 bpm and frequent premature ventricular complexes and resting blood pressure is 140/82 mmHg. 0.4 mg of regadenoson was infused per usual protocol. At rest there were no ST or T wave changes noted suggest abnormal flow reserve and at peak infusion nonspecific ST-T wave changes were noted with no meet the criteria for ischemia. No clinical angina was noted the maximum heart rate was 86 bpm which was 52% of maximum predicted heart rate. The final blood pressure was 126/68 mmHg. Myocardial perfusion protocol. 11.1 mCi of technetium 99m sestamibi was injected at rest. 0.4 mg of regadenoson was infused per usual protocol. And at peak infusion 33.7 mCi of technetium 99m sestamibi was injected stress images were obtained stress and rest images were reconstructed in comparing the short axis vertical long and horizontal long axis. Perfusion SPECT analysis: Review of the stress images demonstrate normal uptake of tracer noted in all areas of the myocardium. The resting images similarly demonstrate normal uptake of tracer noted in all areas of the myocardium. No areas of reversibility are noted to suggest ischemia no previous infarct was noted. Conclusion: Normal pharmacologic myocardial perfusion.
== END | disposition home or self-care (01) ==
LOC: CVS 06:09
PROVIDERS: PCP Family Medicine; Referring Provider Nurse Practitioner Gerontology; Visit Provider Nurse Practitioner Gerontology
DX: Z95.1 Presence of aortocoronary bypass graft (principal); R42 Dizziness and giddiness
CPT/HCPCS: 78452; 93017; 93880; A9500; A4216; J2785

== ENCOUNTER → 2024-06-08 | Outpatient (CLI) | payer BC, MEDICARE, SELFPAY ==
[2024-06-08 12:57] LABS: Absolute Lymphocyte Count 2.22 X10^3/uL (0.83-4.51); Absolute Neutrophil Count 5.6 X10^3/uL (2.0-7.7); Basophil# 0.06 X10^3/uL; Basophil% 0.7 % (0-1); Eosinophil# 0.13 X10^3/uL; Eosinophils% 1.5 % (0-5); Hematocrit 44.3 % (40-54); Hemoglobin 15.1 g/dL (13.0-16.5); Lymphocyte # 2.22 X10^3/ul (0.83-4.51); Lymphocyte % 26.2 % (19-41); Mean Corp Hgb Conc 34.1 g/dL (32-36); Mean Corpuscular Volume 93.9 fL (80-94); Monocyte# 0.47 X10^3/uL; Monocyte% 5.5 % (0-10); NRBC Flagged by Analyzer 0 % (0-5); Neutrophil # 5.56 X10^3/uL (2.7-7.7); Neutrophil % 65.7 % (47-70); Platelet Count 137 K/mm3 (150-450); RBC Distribution Width CV 13.8 % (11.6-14.6); RBC Distribution Width SD 47.8 fl (35.1-43.9); Red Blood Count 4.72 M/mm3 (4.6-6.2); White Blood Count 8.5 K/mm3 (4.4-11.0)
[2024-06-08 13:43] LABS: Anion Gap 7 (5-15); BUN 13 mg/dL (7-18); BUN/Creat Ratio 15.7 RATIO (10-20); Calcium,Total 8.5 mg/dL (8.5-10.1); Chloride 106 mmol/L (98-107); Creatinine, Serum 0.83 mg/dL (0.70-1.30); EST Glomerular Filtration Rate 102 mL/min (>60); Est Glom Filt Rate - Afr Amer 123 mL/min (>60); Glucose 113 mg/dL (74-106); Potassium 2.6 mmol/L (3.5-5.1); Sodium Level 141 mmol/L (136-145)
== END | disposition home or self-care (01) ==
PROVIDERS: PCP Family Medicine; Referring Provider Nurse Practitioner Gerontology; Visit Provider Nurse Practitioner Gerontology
DX: R53.83 Other fatigue (principal)
CPT/HCPCS: 36415; 80048; 84443; 85025

== ENCOUNTER → 2024-06-12 | Outpatient (CLI) | payer BC, MEDICARE, SELFPAY ==
[2024-06-12 12:14] LABS: Anion Gap 4 (5-15); BUN 10 mg/dL (7-18); Calcium,Total 9.2 mg/dL (8.5-10.1); Chloride 109 mmol/L (98-107); Creatinine, Serum 0.83 mg/dL (0.70-1.30); EST Glomerular Filtration Rate 101 mL/min (>60); Est Glom Filt Rate - Afr Amer 122 mL/min (>60); Glucose 115 mg/dL (74-106); Sodium Level 141 mmol/L (136-145)
== END | disposition home or self-care (01) ==
LOC: LAB 11:38
PROVIDERS: PCP Family Medicine; Referring Provider Nurse Practitioner Gerontology; Visit Provider Nurse Practitioner Gerontology
DX: E87.6 Hypokalemia (principal)
CPT/HCPCS: 36415; 80048

== ENCOUNTER → 2024-06-18 | Outpatient (CLI) | payer BC, MEDICARE, SELFPAY ==
[2024-06-18 11:29] LABS: Anion Gap 4 (5-15); BUN 11 mg/dL (7-18); BUN/Creat Ratio 14.4 RATIO (10-20); Calcium,Total 9.2 mg/dL (8.5-10.1); Chloride 112 mmol/L (98-107); Creatinine, Serum 0.76 mg/dL (0.70-1.30); EST Glomerular Filtration Rate 112 mL/min (>60); Est Glom Filt Rate - Afr Amer 135 mL/min (>60); Glucose 85 mg/dL (74-106); Sodium Level 143 mmol/L (136-145)
== END | disposition home or self-care (01) ==
LOC: LAB 10:54
PROVIDERS: PCP Family Medicine; Referring Provider Nurse Practitioner Gerontology; Visit Provider Nurse Practitioner Gerontology
DX: E87.6 Hypokalemia (principal)
CPT/HCPCS: 36415; 80048

== ENCOUNTER → 2025-01-06 | Outpatient (CLI) | payer BC, MEDICARE, SELFPAY ==
[2025-01-06 12:14] LABS: Erythrocyte Sedimentation Rate 3 mm/hr (0-20)
[2025-01-06 12:17] LABS: Absolute Lymphocyte Count 1.41 X10^3/uL (0.83-4.51); Absolute Neutrophil Count 7.8 X10^3/uL (2.0-7.7); Basophil# 0.05 X10^3/uL; Basophil% 0.5 % (0-1); Eosinophil# 0.08 X10^3/uL; Eosinophils% 0.8 % (0-5); Hematocrit 41.5 % (40-54); Hemoglobin 14.4 g/dL (13.0-16.5); Lymphocyte # 1.41 X10^3/ul (0.83-4.51); Lymphocyte % 14.2 % (19-41); Mean Corp Hgb Conc 34.7 g/dL (32-36); Mean Corpuscular Hgb 32.5 pg (27.0-32.0); Mean Corpuscular Volume 93.7 fL (80-94); Mean Platelet Vol. 14.4 fl (6.2-12.0); Monocyte# 0.51 X10^3/uL; Monocyte% 5.2 % (0-10); NRBC Flagged by Analyzer 0 % (0-5); Neutrophil # 7.81 X10^3/uL (2.7-7.7); Neutrophil % 78.9 % (47-70); Platelet Count 119 K/mm3 (150-450); RBC Distribution Width CV 14.4 % (11.6-14.6); RBC Distribution Width SD 49.8 fl (35.1-43.9); Red Blood Count 4.43 M/mm3 (4.6-6.2); White Blood Count 9.9 K/mm3 (4.4-11.0)
[2025-01-06 14:15] LABS: ALB/GLOB Ratio 1.9 RATIO (0.9-2.4); AST(SGOT) 19 U/L (<=37); Alanine Aminotransfer ALT/SGPT 16 U/L (<=46); Albumin, Serum 4.1 g/dL (3.5-5.0); Alkaline Phosphatase 166 U/L (40-129); Anion Gap 13 (5-15); BUN 11 mg/dL (4-19); BUN/Creat Ratio 17.4 RATIO (10-20); CRP 6.96 mg/L (0.0-3.0); Calcium,Total 9.3 mg/dL (7.6-11.0); Carbon Dioxide 20.9 mmol/L (21.0-32.0); Chloride 108 mmol/L (98-108); Cholesterol 142 mg/dL (<=200); Creatinine, Serum 0.65 mg/dL (0.70-1.20); EST Glomerular Filtration Rate 110 (>60); Ferritin 95 ng/mL (37-417); Globulin 2.2 g/dL (2.2-4.2); Glucose 108 mg/dL (70-99); High Density Lipoprotein 70 mg/dL; Low Density Lipoprotein Calc. 47 mg/dL; PSA,Total - Annual Screen 0.27 ng/mL (0.02-4.00); Potassium 3.7 mmol/L (3.3-5.1); Protein, Total 6.3 g/dL (5.9-8.4); Sodium Level 142 mmol/L (133-145); Total Bilirubin 0.73 mg/dL (0.00-1.30); Triglycerides 126 mg/dL; Very Low Density Lipoprotein 25 mg/dL (5-40); cholesterol:hdl ratio screen 2.02
== END | disposition home or self-care (01) ==
LOC: BFHLAB 09:59
PROVIDERS: PCP Family Medicine; Visit Provider Family Medicine
DX: I10 Essential (primary) hypertension (principal); I25.10 Atherosclerotic heart disease of native coronary artery without angina pectoris; I73.9 Peripheral vascular disease, unspecified; D50.9 Iron deficiency anemia, unspecified; R74.8 Abnormal levels of other serum enzymes; Z79.899 Other long term (current) drug therapy; R19.7 Diarrhea, unspecified; Z12.5 Encounter for screening for malignant neoplasm of prostate
CPT/HCPCS: 36415; 80053; 80061; 82728; 84153; 85025; 85652; 86140; G0103

== ENCOUNTER 2025-03-05 23:15 | Inpatient (IN) | payer BC, MEDICARE, SELFPAY ==
[2025-03-05 23:16] VITALS: PULSE 102; RESP 21; TEMP 36.7; O2SAT 88; O2SAT 91; BMI 20.9
--- NOTE | 2025-03-05 23:29 | EKG12_ITS ---
Test Reason : DYSRHYTHMIA Blood Pressure : */* mmHG Vent. Rate : 104 BPM Atrial Rate : 104 BPM P-R Int : 146 ms QRS Dur : 92 ms QT Int : 352 ms P-R-T Axes : 13 12 43 degrees QTcB Int : 462 ms Sinus tachycardia Possible Left atrial enlargement Cannot rule out Inferior infarct , age undetermined Poor R-wave progression ; consider anterior infarct, lead placement, or normal variant Abnormal ECG Confirmed by Clark Wallace ([id number]), magazine editor JONH CALHOUN ([id number]) on 03/07/2025 10:57:08 AM Referred By: Confirmed By: Clark Wallace
--- NOTE | 2025-03-05 23:29 | RAD_ITS ---
PROCEDURE: CHEST PA AND LATERAL 03/05/2025 REASON FOR EXAM: SOB TECHNIQUE: Frontal and lateral views of the chest. COMPARISON: 09/27/2023 FINDINGS: Hardware: Pacemaker and leads and median sternotomy wires are stable since the prior examination. Heart: Heart size is normal. Cardiomegaly present on the prior examination has resolved. Mediastinum: Normal in appearance. No evidence of lymphadenopathy. Hetal are normal. Lungs: Clear Bones: No osseous lesions are identified. RAD/Chest PA and Lateral IMPRESSION: No evidence of acute cardiopulmonary process. No evidence of CHF, pneumonia, d ominant mass, pleural effusion or pneumothorax. Reading Location: [facility]
--- NOTE | 2025-03-05 23:30 | CT_ITS ---
PROCEDURE: BRAIN/HEAD WITHOUT CONTRAST 03/05/2025 REASON FOR EXAM: AMS TECHNIQUE: Head CT without intravenous contrast. Coronal and Sagittal reconstruction series were provided. One or more dose reduction techniques were used (e.g., Automated exposure control, adjustment of the mA and/or kV according to patient size, use of iterative reconstruction technique. RADIATION DOSE SUMMARY: CTDlvol: 44.99 mGy DLP: 779.24 mGycm COMPARISON: 09/28/2023 FINDINGS: The ventricles, cisterns and parenchyma are within normal limits. There is no this evidence of mass effect, shift, hemorrhage, extra-axial collection or abnormal focal low or high density parenchymal lesion. The garcia-white distinction is normal. The orbits and contents, sinuses, pituitary and midline structures, restless temporal bones and contents, mastoid air cells, craniocervical junction, skull and scalp are within normal limits. CT/Brain/Head without Contrast IMPRESSION: The study is within normal limits. There is no evidence of acute intracranial process. Reading Location: [facility]
[2025-03-05 23:39] LABS: Absolute Lymphocyte Count 1.26 X10^3/uL (0.83-4.51); Basophil# 0.09 X10^3/uL; Basophil% 0.4 % (0-1); Eosinophil# 0.05 X10^3/uL; Eosinophils% 0.2 % (0-5); Hematocrit 44.2 % (40-54); Hemoglobin 14.8 g/dL (13.0-16.5); Lymphocyte # 1.26 X10^3/ul (0.83-4.51); Mean Corp Hgb Conc 33.5 g/dL (32-36); Mean Corpuscular Hgb 32.2 pg (27.0-32.0); Mean Corpuscular Volume 96.3 fL (80-94); Mean Platelet Vol. 14.2 fl (6.2-12.0); Monocyte# 1.13 X10^3/uL; Monocyte% 5.4 % (0-10); NRBC Flagged by Analyzer 0 % (0-5); Neutrophil # 18.03 X10^3/uL (2.7-7.7); Neutrophil % 86.3 % (47-70); POSITIVE COUNT YES; POSITIVE MORPHOLOGY YES; Platelet Count 84 K/mm3 (150-450); RBC Distribution Width CV 14.8 % (11.6-14.6); RBC Distribution Width SD 52.6 fl (35.1-43.9); Red Blood Count 4.59 M/mm3 (4.6-6.2); White Blood Count 20.9 K/mm3 (4.4-11.0)
--- NOTE | 2025-03-05 23:43 | EX.ED.DYSGE1 ---
HPI History of Present Illness Chief Complaint: General Illness Narrative Narrative: Patient is a 59-year-old male with past medical history of peripheral arterial disease, DVT on Xarelto, CAD, MRSA, alcohol use daily states that he has 1 mixed drink daily never gone through alcohol drawl, uses wheelchair, hypertension who presented to the Emergency Department chief complaint of I feel like in a fog also states that he had started developing body shaking on of this past week. He states that he just got back from vacation and notes that on he developed body shaking and had not been feeling well overall. He states that has been taking all of his medications not missing any doses. Patient states that him and his drove down to [place] and back. Per nursing he was noted to be hypoxic on room air out in triage 88% therefore he was placed on nasal cannula he is not normally on oxygen. Patient denies any sick contacts. [facility] Medical History Unable to ambulate History of peripheral arterial disease Chronic anticoagulation History of TN (myocardial infarction) Fracture of left hip Tobacco abuse Wears glasses Wears dentures MRSA infection Alcohol use Depression Uses wheelchair DVT (deep venous thrombosis) Easy bruising Gastric reflux Smoker Hypertension Weight loss, abnormal Superficial thrombophlebitis of left leg Postoperative atrial fibrillation (04/30/20) Ischemia of right lower extremity Hyperhomocysteinemia Elevated LFTs Peripheral vascular disease of extremity with claudication Recurrent syncope Ventricular tachycardia Ischemic cardiomyopathy Atherosclerosis of coronary artery without angina pectoris Essential (primary) hypertension History of blood clots Hemorrhoids GERD (gastroesophageal reflux disease) Blood in stool Diarrhea Arthritis Home Medications ?Medication ?Instructions ?Recorded ?Last Taken ?Type aspirin 81 mg tablet,delayed 81 mg PO DAILY 02/22/20 09/27/23 History release (Adult Aspirin Regimen) atorvastatin 80 mg tablet 80 mg PO DAILY 02/22/20 09/26/23 History bupropion HCl 150 mg tablet,12 hr 150 mg PO DAILY 02/22/20 09/27/23 History sustained-release sertraline 50 mg tablet 50 mg PO DAILY 08/08/22 09/27/23 History cilostazol 50 mg tablet 50 mg PO BID 04/07/23 09/27/23 History gabapentin 600 mg tablet 600 mg PO TID 07/03/23 12/23/23 08:00 History omeprazole 40 mg capsule,delayed 40 mg PO DAILY 04/07/23 09/27/23 History release oxycodone 10 mg tablet 10 mg PO TID PRN severe pain 04/07/23 09/26/23 History (scale score 7-10) ferrous gluconate 324 mg (38 mg 324 mg PO DAILY anemia 06/08/24 Unknown History iron) tablet furosemide 40 mg tablet 40 mg PO QDAY PRN edema 06/09/24 Unknown History metoprolol succinate 25 mg 25 mg PO QDAY #90 tabs 10/25/24 Unknown Rx tablet,extended release 24 hr temazepam 15 mg capsule 5 mg PO .hs SLEEP 01/27/25 Unknown History colestipol 1 gram tablet 1 g PO QDAY #30 tabs 02/01/25 Unknown Rx multivitamin (Daily Multi-Vitamin 1 tab PO DAILY 03/05/25 Unknown History tablet) omeprazole 40 mg capsule,delayed 40 mg PO DAILY 03/05/25 Unknown History release potassium chloride 20 mEq 20 meq PO DAILY 03/05/25 Unknown History tablet,extended release rivaroxaban 2.5 mg tablet (Xarelto) 2 mg PO Q24H 03/05/25 Unknown History Allergy/AdvReac Type Severity Reaction Status Date / Time shellfish derived Allergy Severe Swelling Verified 03/05/25 23:23 lorazepam (From Ativan) Allergy NEEDS Verified 03/05/25 23:23 FOLLOW-UP Family History Mother Heart disease Cancer Daughter Hyperhomocysteinemia Daughter Hyperhomocysteinemia Daughter Hyperhomocysteinemia Surgical History History of right lower extremity amputation History of right above knee amputation (05/27/20) History of right below knee amputation (05/17/20) H/O coronary artery bypass surgery (04/27/20) History of left heart catheterization (03/30/20) Status post femoral-popliteal bypass surgery History of femoropopliteal bypass History of implantable cardiac defibrillator (ICD) (06/19/11) History of coronary artery stent placement Social History Smoking Status: Current every day smoker tobacco type: cigarettes alcohol intake: current alcohol intake frequency: a few times a week Alcohol type: hard liquor substance use type: does not use caffeine: No ROS ROS ED ROS Narrative Constitutional: Complains of being in fog, denies fevers, chills, headaches, lightness, dizziness Eyes: Denies change in vision double vision blurry vision Cardiovascular: Denies chest pain or palpitations Respiratory: Denies coughing wheezing shortness of breath Abdomen: Denies abdominal pain nausea vomit diarrhea : Denies urinary symptoms Neurological: Complains of whole body shaking denies numbness, wheeze, tingling Musculoskeletal: Denies back pain Skin: Denies rashes or lesions EXAM Physical Exam Narrative Exam Narrative: General: Patient lying in bed rest comfortably not appear in acute distress Head: Atraumatic, normocephalic Eyes: PERRL bilateral, EOMI bladder, no conjunctival injection noted Neck: Soft, supple, trachea midline Cardiovascular: patient tachycardic with regular rhythm no murmurs gallops rubs noted Respiratory: Clear to auscultation bilaterally Abdomen: Soft, nondistended, no tenderness palpation Musculoskeletal: Patient has a right below-knee amputation noted Extremities: DP pulses +2/4 in the left lower extremity, +4/5 strength noted in the bilateral upper and lower extremity in the left side he is able to move the stump on the right side no pedal edema on exam Neurological: Patient follow commands knew that he was at [facility] year is 2024. NIH is 0 GCS 15 Skin: Warm, dry, intact no rashes or lesions noted Const Vital Signs: 03/05/25 23:16 03/05/25 23:32 03/06/25 00:35 Temperature 98.1 F Temperature Source Oral Pulse Rate 102 H 99 Respiratory Rate 21 H 20 H Respiratory Effort Respiratory Pattern Blood Pressure 87/70 L Blood Pressure Mean 75 Pulse Ox 88 99 Oxygen Delivery Method Room Air Nasal Cannula Nasal Cannula Oxygen Flow Rate (L/min) 3 2 03/06/25 00:45 03/06/25 01:06 03/06/25 01:12 Temperature 98.2 F Temperature Source Oral Pulse Rate 100 100 Respiratory Rate 21 H 20 H Respiratory Effort Normal Non-Labored Respiratory Pattern Normal Blood Pressure 90/61 92/62 Blood Pressure Mean 70 72 Pulse Ox 98 98 Oxygen Delivery Method Nasal Cannula Nasal Cannula Oxygen Flow Rate (L/min) 2 2 03/06/25 01:30 03/06/25 01:45 Temperature 98.1 F 98.1 F Temperature Source Oral Oral Pulse Rate 98 99 Respiratory Rate 18 17 Respiratory Effort Respiratory Pattern Blood Pressure 99/68 95/69 Blood Pressure Mean 78 77 Pulse Ox 96 98 Oxygen Delivery Method Nasal Cannula Nasal Cannula Oxygen Flow Rate (L/min) 2 2 MDM MDM MDM Narrative Medical decision making narrative: Patient is a 59-year-old male who presented to the emergency department with chief complaint of generalized weakness and feeling in fog. On the differential diagnose includes but not limited to electrolyte abnormality, alcohol withdrawal although he states that he is never gone through alcohol withdrawal in the past, viral gastroenteritis, intracranial hemorrhage, PE although feel that this less likely as he is chronically anticoagulated on Xarelto not missing doses. Once workup is obtained reviewed he will be reevaluated. Patient be given 30 cc/kg bolus of IV fluids at 2330. Patient's CBC was significant for leukocytosis of 20,000, hemoglobin 14.8, platelet count was noted be 84, PT of 25.3 is on Xarelto. Patient ABG reviewed showed pH 7.35 with a CO2 of 68. Patient's sodium normal 137, potassium normal 3.7, creatinine was elevated at 4.97 and kidney acute kidney injury, lactic acid was elevated 2.5, AST and ALT were 218 and 50 respectively which are elevated from baseline, alk phos states elevated 173, bilirubin normal at 1.17. Patient ammonia level less than 10, troponin was 128, delta troponin pending EKG reviewed showed sinus tachycardia with a rate of 104 bpm. Patient proBNP elevated 9547, alcohol level less than 10. Patient troponins likely elevated to a type II TN. Patient CT head and brain without contrast showed no acute findings. Patient CT ab pelvis without contrast was reviewed and showed numerous nondilated gas filled bowel loops may indicate ileus gastroenteritis or palp partial obstruction. Small consolidation in the left lung base, small calcifications in the liver and spleen are consistent with old granulomatous disease no discrete hepatic masses identified. Bladder distention of uncertain clinical significance extensive atherotic change without evidence of aneurysm. Patient chest x-ray reviewed by myself and by radiology which showed no acute cardiopulmonary processes. Did add on a foot x-ray as nurse staff noted that he has a wound on his toe from running over with his wheelchair. Patient was given vancomycin and Zosyn at 3 12:39 AM. At this point time the patient will warrant admission for his acute hypoxic respiratory failure in the setting of pneumonia, acute kidney injury, altered mental status will discuss case hospitalist admission. Discussed case with hospitalist Dr. Saba who accept patient for admission. Patient notified as well as at bedside all course concerns answered. I asked nursing staff to BladderScan the patient and if he has significant amount of urine and we will place a Levy catheter given his acute kidney injury Lab Data Labs: Laboratory Results - last 24 hr 03/05/25 03/05/25 03/05/25 00:20 23:20 23:40 WBC 20.9 H RBC 4.59 L Hgb 14.8 Hct 44.2 MCV 96.3 H MCH 32.2 H MCHC 33.5 RDW Std Deviation 52.6 H RDW Coeff of Valeria 14.8 H Plt Count 84 L MPV 14.2 H Immature Gran % (Auto) 1.700 H Neut % (Auto) 86.3 H Lymph % (Auto) 6.[address] [place] % (Auto) 5.4 Eos % (Auto) 0.2 Baso % (Auto) 0.4 Absolute Neuts (auto) 18.0 H Absolute Lymphs (auto) 1.26 Nucleated RBC % 0 Platelet Estimate MOD DEC PT 25.3 H INR 2.3 APTT 40.0 H Sodium 137 Potassium 3.7 Chloride 100 Carbon Dioxide 17.6 L Anion Gap 19 H BUN 41 H Creatinine 4.97 H Estim Creat Clear Calc 14.54 L Est GFR (MDRD) Non-Af 13 L BUN/Creatinine Ratio 8.3 L Glucose 91 Lactic Acid 2.5 H* Calcium 8.8 Total Bilirubin 1.17 AST 218 H ALT 50 H Alkaline Phosphatase 173 H Ammonia Troponin T High Sens 128 H* NT pro BNP II 9547 H Total Protein 7.0 Albumin 4.0 Globulin 3.0 Albumin/Globulin Ratio 1.4 Urine Color Yellow Urine Clarity Sl. Cloudy Urine pH 6.0 Ur Specific [place] 1.015 Urine Protein 30 H Urine Glucose (UA) Normal Urine Ketones Negative Urine Occult Blood 250 H Urine Nitrite Negative Urine Bilirubin Negative Urine Urobilinogen Normal Ur Leukocyte Esterase 500 H Urine RBC 0 SEEN Urine WBC >100 SEEN Ur Squamous Epith Cells 0 SEEN Urine Bacteria 4+ Urine Mucus 0 SEEN Ethyl Alcohol < 10.1 03/06/25 00:40 WBC RBC Hgb Hct MCV MCH MCHC RDW Std Deviation RDW Coeff of Valeria Plt Count MPV Immature Gran % (Auto) Neut % (Auto) Lymph % (Auto) [place] % (Auto) Eos % (Auto) Baso % (Auto) Absolute Neuts (auto) Absolute Lymphs (auto) Nucleated RBC % Platelet Estimate PT INR APTT Sodium Potassium Chloride Carbon Dioxide Anion Gap BUN Creatinine Estim Creat Clear Calc Est GFR (MDRD) Non-Af BUN/Creatinine Ratio Glucose Lactic Acid Calcium Total Bilirubin AST ALT Alkaline Phosphatase Ammonia < 10.0 L Troponin T High Sens NT pro BNP II Total Protein Albumin Globulin Albumin/Globulin Ratio Urine Color Urine Clarity Urine pH Ur Specific [place] Urine Protein Urine Glucose (UA) Urine Ketones Urine Occult Blood Urine Nitrite Urine Bilirubin Urine Urobilinogen Ur Leukocyte Esterase Urine RBC Urine WBC Ur Squamous Epith Cells Urine Bacteria Urine Mucus Ethyl Alcohol ABG Data ABG results: ABG 03/05/25 23:46 Specimen Type ART Sample Site R Radial pH 7.35 Bicarbonate Actual 17.5 L Total CO2 18 Base Excess -8 L O2 Saturation 93 L O2 % 3.0 ABG pCO2 31.8 L ABG pO2 68 L Julian Test Positive O2 Delivery Device Cannula Vent Mode Not entered Radiography Diagnostic Testing: Clinical Impression(s) from Imaging Studies Chest X-Ray 03/05/25 23:29 IMPRESSION: No evidence of acute cardiopulmonary process. No evidence of CHF, pneumonia, dominant mass, pleural effusion or pneumothorax. Reading Location: [facility] Brain CT 03/05/25 23:30 IMPRESSION: The study is within normal limits. There is no evidence of acute intracranial process. Reading Location: [facility] Abdomen/Pelvis CT 03/06/25 00:19 IMPRESSION: Numerous nondilated gas-filled bowel loops may indicate ileus, gastroenteritis or partial obstruction. Small consolidation in the left lung base. Small calcifications in the liver and spleen are consistent with old granulomatous disease. No discrete hepatic masses identified. Bladder distension is of uncertain clinical significance. Extensive atherosclerotic change without evidence of aneurysm. OVERALL FINAL ASSESSMENT: . LI-RADS is not meant to be used in patients <18 years or patients with cirrhosis due to congenital hepatic fibrosis or due to vascular disorders, because these patients have a lower chance of developing HCC. Reading [facility] Dis[facility] Triage Chief Complaint: General Illness ED Provider: Remington Easley Dx/Rx/DC Orders Clinical Impression: Acute hypoxic respiratory failure, Acidosis, lactic, Pneumonia, Acute kidney injury, Transaminitis, Myocardial infarction type 2 Prescriptions: No Action atorvastatin 80 mg tablet 80 mg PO DAILY bupropion HCl 150 mg tablet sustained-release 12 hr 150 mg PO DAILY aspirin [Adult Aspirin Regimen] 81 mg tablet,delayed release (DR/EC) 81 mg PO DAILY ferrous gluconate 324 mg (38 mg iron) tablet 324 mg PO DAILY Patient Comments: 1 TABLET ORALLY DAILY WITH WATER OR JUICE BETWEEN MEALS sertraline 50 mg tablet 50 mg PO DAILY gabapentin 600 mg tablet 600 mg PO TID Patient Comments: TAKE 1 TABLET BY MOUTH THREE TIMES A DAY cilostazol 50 mg tablet 50 mg PO BID Patient Comments: TAKE 1 TABLET BY MOUTH TWICE A DAY omeprazole 40 mg capsule,delayed release(DR/EC) 40 mg PO DAILY Patient Comments: TAKE 1 CAPSULE BY MOUTH EVERY DAY oxycodone 10 mg tablet 10 mg PO TID PRN (Reason: severe pain (scale score 7-10)) Patient Comments: 1-1.5 TABLETS BY MOUTH 3 TIMES A DAY NEEDED SEVERE PAIN temazepam 15 mg capsule 5 mg PO .hs Patient Comments: 1 CAPSULE BY MOUTH DAILY AT BEDTIME NEEDED rivaroxaban [Xarelto] 2.5 mg tablet 2 mg PO Q24H omeprazole 40 mg capsule,delayed release(DR/EC) 40 mg PO DAILY multivitamin [Daily Multi-Vitamin] Tablet 1 tab PO DAILY potassium chloride 20 mEq tablet extended release 20 meq PO DAILY furosemide 40 mg tablet 40 mg PO QDAY PRN (Reason: edema) metoprolol succinate 25 mg tablet extended release 24 hr 25 mg PO QDAY Qty: 90 3RF colestipol 1 gram tablet 1 g PO QDAY Qty: 30 1RF Primary Care Provider: Bud Dave Referrals: Bud Dave DO [Primary Care Provider] - Print Language: Jamaican Disposition Disposition: Acute Care Hospital [facility]
[2025-03-05 23:44] LABS: Differential Indicated SCAN CRITERIA MET
[2025-03-05] MEDS: 0.9% Normal Saline (1000mL) 1,000 ML 999 ML IV (23:46)
[2025-03-05 23:47] LABS: International Normalized Ratio 2.3; Prothrombin Time (Protime)PT. 25.3 SECONDS (11.7-14.9)
[2025-03-05 23:50] LABS: Allen Test Positive; Base Excess -8 mmol/L (-2 to +2); Bicarbonate 17.5 mmol/L (22-26); Blood Gas Specimen Type ART; Mode Not entered; O2 Delivery Device Cannula; PO2 68 mmHG (75-100); SITE R Radial; SO2 93 % (95-99); Total Carbon Dioxide 18 mmol/L; pCO2 31.8 mmHg (35-45); pH 7.35 (7.35-7.45)
[2025-03-06] VITALS (31 sets, daily range): BP systolic 86–127; BP diastolic 53–86; PULSE 98–119; RESP 17–30; TEMP 36.6–38.6; O2SAT 85–100; BMI 21.2
[2025-03-06 00:04] LABS: ALB/GLOB Ratio 1.4 RATIO (0.9-2.4); AST(SGOT) 218 U/L (<=37); Alanine Aminotransfer ALT/SGPT 50 U/L (<=46); Alkaline Phosphatase 173 U/L (40-129); Anion Gap 19 (5-15); BUN 41 mg/dL (4-19); BUN/Creat Ratio 8.3 RATIO (10-20); Calcium,Total 8.8 mg/dL (7.6-11.0); Carbon Dioxide 17.6 mmol/L (21.0-32.0); Chloride 100 mmol/L (98-108); Creatinine, Serum 4.97 mg/dL (0.70-1.20); EST Glomerular Filtration Rate 13 (>60); Estimated Creatinine Clearance 14.54 ml/min (50-250); Glucose 91 mg/dL (70-99); Potassium 3.7 mmol/L (3.3-5.1); Sodium Level 137 mmol/L (133-145); Total Bilirubin 1.17 mg/dL (0.00-1.30)
[2025-03-06 00:16] LABS: Platelet Estimate MOD DEC (ADEQ)
--- NOTE | 2025-03-06 00:19 | CT_ITS ---
PROCEDURE: ABDOMEN/PELVIS WITHOUT CONT 03/05/2025 REASON FOR EXAM: NANCY, ELEVATED LIVER ENZYMES TECHNIQUE: Abdomen and pelvis CT without intravenous contrast. Noncontrast technique limits evaluation of the abdominal and pelvic viscera. Coronal and Sagittal reconstruction series were provided. One or more dose reduction techniques were used (e.g., Automated exposure control, adjustment of the mA and/or kV according to patient size, use of iterative reconstruction technique). PATIENT PREPARATION: Per protocol ORAL CONTRAST TYPE: None. COMPARISON: None FINDINGS: Lung bases: There is bilateral dependent subsegmental atelectasis. There is a small consolidation in the left base. Liver: Normal in size and configuration. There is a single small calcification in the liver. There is no discrete mass. Gallbladder: Within normal limits. No evidence of gallstones or wall thickening. Spleen: Multiple small calcifications. Normal in size and configuration. Pancreas: Within normal limits. No evidence of mass or peripancreatic fluid. Adrenals: Normal. No evidence of mass. Kidneys: Normal in size and configuration. No evidence of stone, mass, hydronephrosis or significant cyst. Bladder: Distended. No wall thickening or mass. Reproductive Organs: Prostate is normal in size. Bowel: There are numerous nondilated gas-filled bowel loops appear to be colonic. Appendix: Not clearly visualized. No definite right lower quadrant inflammatory change. Lymph nodes: No pathologic lymphadenopathy. Vasculature: Extensive atherosclerotic change without definite evidence of aneurysm. Peritoneum / Retroperitoneum: No evidence of free fluid. Bones: Moderate anterior wedge compression fracture of the L1 vertebral body, age indeterminate. CT/Abdomen/Pelvis without Cont IMPRESSION: Numerous nondilated gas-filled bowel loops may indicate ileus, gastroenteritis or partial obstruction. Small consolidation in the left lung base. Small calcifications in the liver and spleen are consistent with old granulomat ous disease. No discrete hepatic masses identified. Bladder distension is of uncertain clinical significance. Extensive atherosclerotic change without evidence of aneurysm. OVERALL FINAL ASSESSMENT: . LI-RADS is not meant to be used in patients <18 years or patients with cirrhosi s due to congenital hepatic fibrosis or due to vascular disorders, because these patients have a lower chance of developing HC C. Reading Location: [facility]
[2025-03-06 00:32] LABS: Mucous, Urine 0 SEEN /hpf (<or=2+); Red Blood Cells-Urine 0 SEEN /hpf (0-5); Squamous Epithelial Cells - UA 0 SEEN /hpf (0-5)
[2025-03-06 00:34] LABS: Pro- Brain NATRIURETIC PEPTIDE 9547 pg/mL (<=900); Troponin T High Sensitivity 128 ng/L (<=22)
[2025-03-06 00:35] LABS: Color, Urine Yellow (Yellow); Glucose, Dipstick Normal (Normal); Ketone-Dipstick Negative (Negative); Leukocyte Esterase-Dipstick 500 /ul (Negative); Nitrite-Dipstick Negative (Negative); Occult Blood-Urine 250 /ul (Negative); Protein-Dipstick 30 mg/dl (Negative); Specific Gravity, Urine 1.015 (1.002-1.030); Urine Bilirubin Dipstick Negative (Negative); Urine Clarity Sl. Cloudy (Clear); Urine Urobilinogen Normal (Normal)
[2025-03-06 00:35] LABS: Lactic Acid 2.5 mmol/L (0.0-2.0)
--- NOTE | 2025-03-06 00:37 | ED.RN ---
Dr Easley notified of critical troponin and lactic
[2025-03-06] MEDS: 0.9% Normal Saline (1000mL) 1,000 ML 999 ML IV (00:43)
[2025-03-06 00:45] LABS: Alcohol, Blood (Medical)-Serum < 10.1 mg/dL (<=10.0)
[2025-03-06] MEDS: Piperacil/Tazobactam 4.5 GM in 0.9% Normal Saline (100mL MB+) 100 ML IV (00:48)
[2025-03-06] MEDS: Vancomycin HCl 1,500 MG in 0.9% Normal Saline (500mL Bag) 500 ML 250 MG IV (01:03)
[2025-03-06 01:12] LABS: Ammonia < 10.0 umol/L (16-60)
[2025-03-06 01:14] LABS: White Blood Cells >100 SEEN /hpf (0-5)
[2025-03-06 01:15] LABS: Bacteria 4+ /hpf (None Seen)
--- NOTE | 2025-03-06 01:55 | NURSING ---
Second toe on left foot noted to have wound. notified.
--- NOTE | 2025-03-06 02:00 | RAD_ITS ---
PROCEDURE: FOOT MIN 3 VIEWS 03/05/2025 REASON FOR EXAM: TOE WOUND TECHNIQUE: 3 views of the left foot. COMPARISON: None FINDINGS: And bones are normal in morphology and alignment. There is no evidence of lytic or sclerotic lesion. Imaged articulations are within normal limits. There is no significant soft tissue swelling or radiopaque foreign body. RAD/Foot min 3 Views IMPRESSION: The study is within normal limits. Reading Location: [facility]
[2025-03-06 03:06] LABS: Troponin T High Sens 2 HR 111 ng/L (<=22)
[2025-03-06 03:43] LABS: Reflex Lactate? Y
--- NOTE | 2025-03-06 03:48 | PCM.HP.STD ---
HPI - General General Date of Admission: 03/06/25 HPI Narrative MYRIAM LISA, is a 59 M who presents to the hospital with fevers and chills as well as rigors. He states that symptoms started 3 days ago. 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 In the ER he was found to be septic with a lactic acid of 2.5 and creatinine of 4.97, his baseline is 0.7. CT of his abdomen pelvis is unremarkable, there is the possibility of a small consolidation in in his left lung however I think the source of his infection is his urine which is grossly contaminated with 500 leukocyte esterase as well as greater than 100 white blood cells and 4+ urine bacteria. He received a dose of vancomycin and Zosyn in the emergency room, blood cultures and urine cultures are pending. [facility] Medical History Unable to ambulate History of peripheral arterial disease Chronic anticoagulation History of AK (myocardial infarction) Fracture of left hip Tobacco abuse Wears glasses Wears dentures MRSA infection Alcohol use Depression Uses wheelchair DVT (deep venous thrombosis) Easy bruising Gastric reflux Smoker Hypertension Weight loss, abnormal Superficial thrombophlebitis of left leg Postoperative atrial fibrillation (04/30/20) Ischemia of right lower extremity Hyperhomocysteinemia Elevated LFTs Peripheral vascular disease of extremity with claudication Recurrent syncope Ventricular tachycardia Ischemic cardiomyopathy Atherosclerosis of coronary artery without angina pectoris Essential (primary) hypertension History of blood clots Hemorrhoids GERD (gastroesophageal reflux disease) Blood in stool Diarrhea Arthritis Home Medications ?Medication ?Instructions ?Recorded ?Last Taken ?Type aspirin 81 mg tablet,delayed 81 mg PO DAILY 02/22/20 09/27/23 History release (Adult Aspirin Regimen) atorvastatin 80 mg tablet 80 mg PO DAILY 02/22/20 09/26/23 History bupropion HCl 150 mg tablet,12 hr 150 mg PO DAILY 02/22/20 09/27/23 History sustained-release sertraline 50 mg tablet 50 mg PO DAILY 08/08/22 09/27/23 History cilostazol 50 mg tablet 50 mg PO BID 04/07/23 09/27/23 History gabapentin 600 mg tablet 600 mg PO TID 04/07/23 09/27/23 08:00 History omeprazole 40 mg capsule,delayed 40 mg PO DAILY 04/07/23 09/27/23 History release oxycodone 10 mg tablet 10 mg PO TID PRN severe pain 04/07/23 09/26/23 History (scale score 7-10) ferrous gluconate 324 mg (38 mg 324 mg PO DAILY anemia 06/08/24 Unknown History iron) tablet furosemide 40 mg tablet 40 mg PO QDAY PRN edema 06/09/24 Unknown History metoprolol succinate 25 mg 25 mg PO QDAY #90 tabs 10/25/24 Unknown Rx tablet,extended release 24 hr temazepam 15 mg capsule 5 mg PO .hs SLEEP 01/27/25 Unknown History colestipol 1 gram tablet 1 g PO QDAY #30 tabs 02/01/25 Unknown Rx multivitamin (Daily Multi-Vitamin 1 tab PO DAILY 03/05/25 Unknown History tablet) omeprazole 40 mg capsule,delayed 40 mg PO DAILY 03/05/25 Unknown History release potassium chloride 20 mEq 20 meq PO DAILY 03/05/25 Unknown History tablet,extended release rivaroxaban 2.5 mg tablet (Xarelto) 2 mg PO Q24H 03/05/25 Unknown History Allergy/AdvReac Type Severity Reaction Status Date / Time shellfish derived Allergy Severe Swelling Verified 03/05/25 23:23 lorazepam (From Ativan) Allergy NEEDS Verified 03/05/25 23:23 FOLLOW-UP Family History Mother Heart disease Cancer Daughter Hyperhomocysteinemia Daughter Hyperhomocysteinemia Daughter Hyperhomocysteinemia Surgical History History of right lower extremity amputation History of right above knee amputation (05/27/20) History of right below knee amputation (05/17/20) H/O coronary artery bypass surgery (04/27/20) History of left heart catheterization (03/30/20) Status post femoral-popliteal bypass surgery History of femoropopliteal bypass History of implantable cardiac defibrillator (ICD) (06/19/11) History of coronary artery stent placement Social History Smoking Status: Current every day smoker tobacco type: cigarettes alcohol intake: current alcohol intake frequency: a few times a week Alcohol type: hard liquor substance use type: does not use caffeine: No ROS Constitutional Constitutional: Reports chills, fever(s) and malaise; Denies fatigue Eyes Eyes: Denies blurry vision ENT HEENT: Denies headache(s) or nasal discharge Cardiovascular Cardiovascular: Denies chest pain, dyspnea on exertion or syncope Respiratory/Chest Respiratory/Chest: Denies cough, shortness of breath at rest or shortness of breath with exertion Gastrointestinal Gastrointestinal: Denies constipation, diarrhea, nausea or vomiting Genitourinary Genitourinary: Denies dysuria Neurologic Neurologic: Denies focal weakness, numbness or tremor(s) Psychiatric Psychiatric: Denies anxiety or depression Vital Signs Vital Signs Vital Signs: 03/05/25 23:16 03/05/25 23:32 03/06/25 00:35 Temperature 98.1 F Temperature Source Oral Pulse Rate 102 H 99 Respiratory Rate 21 H 20 H Respiratory Effort Respiratory Pattern Blood Pressure 87/70 L Blood Pressure Mean 75 Pulse Ox 88 99 Oxygen Delivery Method Room Air Nasal Cannula Nasal Cannula Oxygen Flow Rate (L/min) 3 2 03/06/25 00:45 03/06/25 01:06 03/06/25 01:12 Temperature 98.2 F Temperature Source Oral Pulse Rate 100 100 Respiratory Rate 21 H 20 H Respiratory Effort Normal Non-Labored Respiratory Pattern Normal Blood Pressure 90/61 92/62 Blood Pressure Mean 70 72 Pulse Ox 98 98 Oxygen Delivery Method Nasal Cannula Nasal Cannula Oxygen Flow Rate (L/min) 2 2 03/06/25 01:30 03/06/25 01:45 03/06/25 02:54 Temperature 98.1 F 98.1 F 98.3 F Temperature Source Oral Oral Pulse Rate 98 99 99 Respiratory Rate 18 17 21 H Respiratory Effort Respiratory Pattern Blood Pressure 99/68 95/69 95/61 Blood Pressure Mean 78 77 72 Pulse Ox 96 98 98 Oxygen Delivery Method Nasal Cannula Nasal Cannula Oxygen Flow Rate (L/min) 2 2 03/06/25 03:00 Temperature Temperature Source Pulse Rate 100 Respiratory Rate 18 Respiratory Effort Respiratory Pattern Blood Pressure 111/71 Blood Pressure Mean 84 Pulse Ox Oxygen Delivery Method Oxygen Flow Rate (L/min) Weight Weight: 138 lb 3.2 oz Body Mass Index (BMI) 20.9 Physical Exam Narrative General: Alert, Oriented x3, Cooperative, No apparent distress HEENT: Atraumatic, PERRLA, EOMI, Normocephalic Oral: Dry mucosa Neck: Supple, No JVD Lungs: Diminished, Normal air movement, No rhonchi, No wheeze, No rales Cardiovascular: Tachycardic, Regular Rhythm, Normal S1, Normal S2, No murmurs Abdomen: Soft, Non Tender, Non-Distended, No Hepato-splenomegaly Extremities: No edema, Capillary Refill Less than 3 Seconds Skin: Second toe with breakdown on his left foot, foot x-rays pending Musculoskeletal: No Tenderness to Palpation of Joints or Extremities Neurological: No focal neurological deficits, Motor Exam 5/5 strength throughout, Sensory exam intact to light touch and pain Psych/Mental Status: Normal Affect, Appropriate Results Lab / Micro Data 03/05/25 23:20 03/05/25 23:20 Labs: Laboratory Results - last 24 hr 03/05/25 00:20: Urine Color Yellow, Urine Clarity Sl. Cloudy, Urine pH 6.0, Ur Specific [place] 1.015, Urine Protein 30 H, Urine Glucose (UA) Normal, Urine Ketones Negative, Urine Occult Blood 250 H, Urine Nitrite Negative, Urine Bilirubin Negative, Urine Urobilinogen Normal, Ur Leukocyte Esterase 500 H, Urine RBC 0 SEEN, Urine WBC >100 SEEN, Ur Squamous Epith Cells 0 SEEN, Urine Bacteria 4+, Urine Mucus 0 SEEN 03/05/25 23:20: WBC 20.9 H, RBC 4.59 L, Hgb 14.8, Hct 44.2, MCV 96.3 H, MCH 32.2 H, MCHC 33.5, RDW Std Deviation 52.6 H, RDW Coeff of Valeria 14.8 H, Plt Count 84 L, MPV 14.2 H, Immature Gran % (Auto) 1.700 H, Neut % (Auto) 86.3 H, Lymph % (Auto) 6.0 L, Marshall % (Auto) 5.4, Eos % (Auto) 0.2, Baso % (Auto) 0.4, Absolute Neuts (auto) 18.0 H, Absolute Lymphs (auto) 1.26, Nucleated RBC % 0, Platelet Estimate MOD DEC, PT 25.3 H, INR 2.3, APTT 40.0 H, Sodium 137, Potassium 3.7, Chloride 100, Carbon Dioxide 17.6 L, Anion Gap 19 H, BUN 41 H, Creatinine 4.97 H, Estim Creat Clear Calc 14.54 L, Est GFR (MDRD) Non-Af 13 L, BUN/Creatinine Ratio 8.3 L, Glucose 91, Calcium 8.8, Total Bilirubin 1.17, AST 218 H, ALT 50 H, Alkaline Phosphatase 173 H, Troponin T High Sens 128 H*, [place] II 9547 H, Total Protein 7.0, Albumin 4.0, Globulin 3.0, Albumin/Globulin Ratio 1.4, Ethyl Alcohol < 10.1 03/05/25 23:40: Lactic Acid 2.5 H* 03/06/25 00:40: Ammonia < 10.0 L 03/06/25 01:39: Troponin T Hi Sens 2 Hr 111 H* Micro: Microbiology 03/05/25 23:30 Mucosa - Nose SARS-CoV-2, Influenza & RSV (PCR) - Final ABG Data ABG results: ABG 03/05/25 23:46 Specimen Type ART Sample Site R Radial pH 7.35 Bicarbonate Actual 17.5 L Total CO2 18 Base Excess -8 L O2 Saturation 93 L O2 % 3.0 ABG pCO2 31.8 L ABG pO2 68 L Julian Test Positive O2 Delivery Device Cannula Vent Mode Not entered Imaging Radiology Impression Chest X-Ray 03/05/25 23:29 IMPRESSION: No evidence of acute cardiopulmonary process. No evidence of CHF, pneumonia, dominant mass, pleural effusion or pneumothorax. Reading Location: [facility] Brain CT 03/05/25 23:30 IMPRESSION: The study is within normal limits. There is no evidence of acute intracranial process. Reading [facility] Abdomen/Pelvis CT 03/06/25 00:19 IMPRESSION: Numerous nondilated gas-filled bowel loops may indicate ileus, gastroenteritis or partial obstruction. Small consolidation in the left lung base. Small calcifications in the liver and spleen are consistent with old granulomatous disease. No discrete hepatic masses identified. Bladder distension is of uncertain clinical significance. Extensive atherosclerotic change without evidence of aneurysm. OVERALL FINAL ASSESSMENT: . LI-RADS is not meant to be used in patients <18 years or patients with cirrhosis due to congenital hepatic fibrosis or due to vascular disorders, because these patients have a lower chance of developing HCC. Reading Location: [facility] Foot X-Ray 03/06/25 02:00 IMPRESSION: The study is within normal limits. Reading Location: [facility] Assessment & Plan Assessment/Plan (1) Acute kidney injury: (2) UTI (urinary tract infection): PLAN: Plan 1. Sepsis secondary to UTI with acute renal failure/elevated LFTs ? Levy is in place and urine does look very contaminated ? We will continue with Zosyn given the source ? Blood cultures and urine cultures are pending ? He did receive a 1 L bolus in the emergency room and will continue with gentle IV fluids secondary to his diastolic heart failure history ? His LFTs are elevated but they are generally chronically elevated and he does have an alcohol use history ? He states that he does not go through withdrawal, if he does develop signs and symptoms consistent with withdrawal we will monitor and placed on treatment 2. Essential HTN/HLD/CAD status post CABG/status post pacemaker and defibrillator placement for ventricular tachycardia/peripheral artery disease status post right BKA/chronic diastolic CHF ? Will continue with his aspirin, Lipitor, cilostazol ? Will hold his Lasix ? Can resume his metoprolol ? Will monitor and make adjustments as necessary ? Echo from 09/27/2023 with an EF of 55% with mild concentric left ventricular hypertrophy ? The proBNP on admission today was 9000 the upper limit of normal for his age group and gender is 900 which is why he will not receive the full sepsis bolus ? Troponins are elevated but insignificant as this is likely due to sepsis in the setting of previous cardiac history ? Will continue with his low-dose Xarelto 3. GERD ? Stable ? Continue with PPI 4. Peripheral neuropathy/anxiety/depression ? Can continue with his home Wellbutrin and Zoloft ? Will hold his gabapentin secondary to his renal failure 5. Iron deficiency anemia ? Stable ? Continue with his iron replacement DVT: Low-dose Xarelto Sepsis Attestation Sepsis Attestation: Agree w/Sepsis Date exam was performed: 03/06/25 Time exam was performed: 02:50 Possible Source of Sepsis: Genitourinary Sepsis Organ Dysfunction Criteria Present: Creatinine > 2.0 mg/dL, Lactic Acid > 2 mmol/L and Serum CO2 < 20 mmol/L (on BMP) Charges/Coding Visit Charges Inpatient E&M: 97090 Init Hosp L3
[2025-03-06 04:21] LABS: Troponin T High Sens 4 HR 103 ng/L (<=22)
[2025-03-06] MEDS: 0.9% Normal Saline (1000mL) 1,000 ML 75 ML IV (04:35)
[2025-03-06] MEDS: 0.9% Saline Lock 10 ML Syringe IV (04:44)
[2025-03-06 05:56] LABS: Lactic Acid 1.5 mmol/L (0.0-2.0)
[2025-03-06 07:51] LABS: Absolute Lymphocyte Count 0.78 X10^3/uL (0.83-4.51); Basophil# 0.05 X10^3/uL; Basophil% 0.4 % (0-1); Eosinophil# 0.03 X10^3/uL; Eosinophils% 0.2 % (0-5); Hemoglobin 12.8 g/dL (13.0-16.5); Lymphocyte # 0.78 X10^3/ul (0.83-4.51); Lymphocyte % 5.7 % (19-41); Mean Corp Hgb Conc 33.7 g/dL (32-36); Mean Corpuscular Hgb 32.7 pg (27.0-32.0); Mean Corpuscular Volume 96.9 fL (80-94); Monocyte# 0.63 X10^3/uL; Monocyte% 4.6 % (0-10); NRBC Flagged by Analyzer 0 % (0-5); Neutrophil # 12.04 X10^3/uL (2.7-7.7); Neutrophil % 87.7 % (47-70); POSITIVE COUNT YES; POSITIVE MORPHOLOGY YES; Platelet Count 70 K/mm3 (150-450); RBC Distribution Width CV 14.9 % (11.6-14.6); Red Blood Count 3.92 M/mm3 (4.6-6.2); White Blood Count 13.7 K/mm3 (4.4-11.0)
[2025-03-06 08:01] LABS: Anion Gap 17 (5-15); BUN 45 mg/dL (4-19); BUN/Creat Ratio 9.8 RATIO (10-20); Calcium,Total 7.4 mg/dL (7.6-11.0); Carbon Dioxide 16.5 mmol/L (21.0-32.0); Chloride 106 mmol/L (98-108); Creatinine, Serum 4.64 mg/dL (0.70-1.20); EST Glomerular Filtration Rate 14 (>60); Estimated Creatinine Clearance 15.78 ml/min (50-250); Glucose 86 mg/dL (70-99); Potassium 3.5 mmol/L (3.3-5.1); Sodium Level 139 mmol/L (133-145)
[2025-03-06 08:05] LABS: Differential Indicated SCAN CRITERIA MET
[2025-03-06 08:27] LABS: Differential Comment SCANNED
[2025-03-06] MEDS: Piperacil/Tazobactam 3.375 GM in 0.9% Normal Saline (50mL MB+) 50 ML IV ×2 (08:56→21:14)
[2025-03-06] MEDS: Cilostazol 50 MG Tablet PO ×2 (09:02→20:59)
[2025-03-06] MEDS: Pantoprazole Sodium 40 MG Tablet PO (09:03)
[2025-03-06] MEDS: Metoprolol(XL)Succ 25 MG Tablet PO (09:03)
[2025-03-06] MEDS: Sertraline 50 MG Tablet PO (09:03)
[2025-03-06] MEDS: buPROPion (SR) 150 MG Tablet.SA PO (09:03)
[2025-03-06] MEDS: Colestipol 1 GM TABLET PO (09:03)
[2025-03-06] MEDS: Aspirin E.C. 81 MG Tablet PO (09:04)
[2025-03-06] MEDS: Menthol/Lanolin/Calamine/Znox 113 GM Tube 1 APPLIC TOPICAL ×2 (09:04→20:59)
[2025-03-06] MEDS: Ferrous Gluconate 324 MG Tablet PO (09:04)
--- NOTE | 2025-03-06 10:45 | PCM.HOSP.N ---
Hospitalist Note Patient admitted early this morning for sepsis suspected secondary to UTI. I saw the patient at bedside midmorning. Patient was laying back in bed and was somewhat flushed and mildly fatigued appearing; he otherwise was answering questions appropriately and in no acute distress. Denied any UTI symptoms at this time; notably does have a Levy catheter in place. Creatinine only improved slightly from 4.9 overnight to 4.6 this morning. Patient has no acute dialysis needs but given the significant NANCY, will consult nephrology today. Otherwise will continue IV Zosyn and encouraged p.o. intake for patient today. Will hold on further IV fluids at this time. Continue to monitor closely. Full progress note to follow tomorrow.
[2025-03-06] MEDS: Gabapentin 100 MG Capsule 200 MG PO (14:05)
[2025-03-06 14:16] LABS: AST(SGOT) 426 U/L (<=37); Alanine Aminotransfer ALT/SGPT 80 U/L (<=46); Albumin, Serum 3.6 g/dL (3.5-5.0); Alkaline Phosphatase 155 U/L (40-129); Bilirubin, Direct 0.51 mg/dL (0.00-0.30); Globulin 1.8 g/dL (2.2-4.2); Protein, Total 5.4 g/dL (5.9-8.4); Total Bilirubin 1.07 mg/dL (0.00-1.30)
--- NOTE | 2025-03-06 14:30 | PN.HOSP_ITS ---
Hospitalist Note Notified by nursing staff that blood cultures are preliminary positive for gram- negative rods. Patient remains tachycardic to the 110s and BP has been dropping with most recent read 86/53. Has also been consistently febrile and has been experiencing rigors. Will give another 1 L LR bolus now. However, have high concern that patient will continue to become more hypotensive secondary to sepsis from gram-negative bacteremia. Will move patient up to the ICU at this time.
[2025-03-06] MEDS: Acetaminophen 325 MG Tablet 650 MG PO ×2 (14:39→20:59)
[2025-03-06] MEDS: Lactated Ringers 1,000 ML 500 ML IV (14:40)
--- NOTE | 2025-03-06 15:01 | NURSING ---
Report called to ELINOR Toro for pt to be transferred to ICU bed 202.
--- NOTE | 2025-03-06 15:08 | PCM.CONS.R ---
Assessment & Plan Assessment/Plan (1) Acute kidney injury: PLAN: Normal baseline creatinine as of January 2025. Came in with moderate obstructive symptoms, he says he could not void much for the last 4 days. Since placing Sutherland catheter he says abdomen feels much better. CT abdomen showed distended bladder but no hydronephrosis. Sutherland catheter indwelling, decent urine output. Urine analysis with few leukocytes. Cultures pending. Discussed with hospitalist, blood cultures prelim positive for gram-negative rods. Has ongoing fevers. Likely ongoing sepsis, presumably urinary origin. Antibiotics as per primary. With respect to tremors, he says this started about 1 to 2 days prior to coming in. Reviewed preadmission medication list, he was on gabapentin 600 mg 3 times daily for neuropathy. Most likely tremors are related to accumulation of gabapentin. Dose has already been reduced. For now I will hold his gabapentin completely until the tremors are resolved. Once they are resolved, we will start back at a smaller dose. HPI Consult Data Date of Consult: 03/06/25 HPI Narrative Reason for Consultation: Acute renal failure HPI Narrative: MYRIAM LISA, is a 59 M who presents to the hospital with tremors. Nephrology on consultation in view of acute renal failure. Baseline creatinine was normal as of last month. Came with a creatinine of 4.9. He says he was started on a new medication for diarrhea recently. No other new medications, NSAIDs, [id number] medications. Denies take any other supplements. He says he could not void for the last 3 to 4 days. He did have a Sutherland catheter placed since admission and he says his abdomen feels much better since then. [facility] Medical History Unable to ambulate History of peripheral arterial disease Chronic anticoagulation History of MD (myocardial infarction) Fracture of left hip Tobacco abuse Wears glasses Wears dentures MRSA infection Alcohol use Depression Uses wheelchair DVT (deep venous thrombosis) Easy bruising Gastric reflux Smoker Hypertension Weight loss, abnormal Superficial thrombophlebitis of left leg Postoperative atrial fibrillation (04/30/20) Ischemia of right lower extremity Hyperhomocysteinemia Elevated LFTs Peripheral vascular disease of extremity with claudication Recurrent syncope Ventricular tachycardia Ischemic cardiomyopathy Atherosclerosis of coronary artery without angina pectoris Essential (primary) hypertension History of blood clots Hemorrhoids GERD (gastroesophageal reflux disease) Blood in stool Diarrhea Arthritis Home Medications ?Medication ?Instructions ?Recorded ?Last Taken ?Type aspirin 81 mg tablet,delayed 81 mg PO DAILY 02/22/20 09/27/23 History release (Adult Aspirin Regimen) atorvastatin 80 mg tablet 80 mg PO DAILY 02/22/20 09/26/23 History bupropion HCl 150 mg tablet,12 hr 150 mg PO DAILY 02/22/20 09/27/23 History sustained-release sertraline 50 mg tablet 50 mg PO DAILY 08/08/22 09/27/23 History cilostazol 50 mg tablet 50 mg PO BID 04/07/23 09/27/23 History gabapentin 600 mg tablet 600 mg PO TID 04/07/23 09/27/23 08:00 History omeprazole 40 mg capsule,delayed 40 mg PO DAILY 04/07/23 09/27/23 History release oxycodone 10 mg tablet 10 mg PO TID PRN severe pain 04/07/23 09/26/23 History (scale score 7-10) ferrous gluconate 324 mg (38 mg 324 mg PO DAILY anemia 06/08/24 Unknown History iron) tablet furosemide 40 mg tablet 40 mg PO QDAY PRN edema 06/09/24 Unknown History metoprolol succinate 25 mg 25 mg PO QDAY #90 tabs 10/25/24 Unknown Rx tablet,extended release 24 hr temazepam 15 mg capsule 5 mg PO .hs SLEEP 01/27/25 Unknown History colestipol 1 gram tablet 1 g PO QDAY #30 tabs 02/01/25 Unknown Rx multivitamin (Daily Multi-Vitamin 1 tab PO DAILY 03/05/25 Unknown History tablet) omeprazole 40 mg capsule,delayed 40 mg PO DAILY 03/05/25 Unknown History release potassium chloride 20 mEq 20 meq PO DAILY 03/05/25 Unknown History tablet,extended release rivaroxaban 20 mg tablet (Xarelto) 20 mg PO DAILY blood thinner 03/06/25 Unknown History Allergy/AdvReac Type Severity Reaction Status Date / Time shellfish derived Allergy Severe Swelling Verified 03/05/25 23:23 lorazepam (From Ativan) Allergy NEEDS Verified 03/05/25 23:23 FOLLOW-UP Family History Mother Heart disease Cancer Daughter Hyperhomocysteinemia Daughter Hyperhomocysteinemia Daughter Hyperhomocysteinemia Surgical History History of right lower extremity amputation History of right above knee amputation (05/27/20) History of right below knee amputation (05/17/20) H/O coronary artery bypass surgery (04/27/20) History of left heart catheterization (03/30/20) Status post femoral-popliteal bypass surgery History of femoropopliteal bypass History of implantable cardiac defibrillator (ICD) (06/19/11) History of coronary artery stent placement Social History Smoking Status: Current every day smoker tobacco type: cigarettes alcohol intake: current alcohol intake frequency: a few times a week Alcohol type: hard liquor substance use type: does not use caffeine: No ROS ROS Narrative Negative except above Physical Exam Narrative Alert awake oriented x 3 no obvious distress no pallor no icterus no JVD s1s2 no murmurs lungs clear abdomen soft no organomegaly no edema no cyanosis sutherland + Lab / Micro Data 03/06/25 04:31 03/06/25 04:31 Labs: Laboratory Results - last 24 hr 03/05/25 00:20: Urine Color Yellow, Urine Clarity Sl. Cloudy, Urine pH 6.0, Ur Specific [place] 1.015, Urine Protein 30 H, Urine Glucose (UA) Normal, Urine Ketones Negative, Urine Occult Blood 250 H, Urine Nitrite Negative, Urine Bilirubin Negative, Urine Urobilinogen Normal, Ur Leukocyte Esterase 500 H, Urine RBC 0 SEEN, Urine WBC >100 SEEN, Ur Squamous Epith Cells 0 SEEN, Urine Bacteria 4+, Urine Mucus 0 SEEN 03/05/25 23:20: WBC 20.9 H, RBC 4.59 L, Hgb 14.8, Hct 44.2, MCV 96.3 H, MCH 32.2 H, MCHC 33.5, RDW Std Deviation 52.6 H, RDW Coeff of Valeria 14.8 H, Plt Count 84 L, MPV 14.2 H, Immature Gran % (Auto) 1.700 H, Neut % (Auto) 86.3 H, Lymph % (Auto) 6.0 L, Dukes % (Auto) 5.4, Eos % (Auto) 0.2, Baso % (Auto) 0.4, Absolute Neuts (auto) 18.0 H, Absolute Lymphs (auto) 1.26, Nucleated RBC % 0, Platelet Estimate MOD DEC, PT 25.3 H, INR 2.3, APTT 40.0 H, Sodium 137, Potassium 3.7, Chloride 100, Carbon Dioxide 17.6 L, Anion Gap 19 H, BUN 41 H, Creatinine 4.97 H, Estim Creat Clear Calc 14.54 L, Est GFR (MDRD) Non-Af 13 L, BUN/Creatinine Ratio 8.3 L, Glucose 91, Calcium 8.8, Total Bilirubin 1.17, AST 218 H, ALT 50 H, Alkaline Phosphatase 173 H, Troponin T High Sens 128 H*, [place] 9547 H, Total Protein 7.0, Albumin 4.0, Globulin 3.0, Albumin/Globulin Ratio 1.4, Ethyl Alcohol < 10.1 03/05/25 23:40: Lactic Acid 2.5 H* 03/06/25 00:40: Ammonia < 10.0 L 03/06/25 01:39: Troponin T Hi Sens 2 Hr 111 H* 03/06/25 03:24: Troponin T Hi Sens 4Hr 103 H* 03/06/25 04:31: WBC 13.7 H, RBC 3.92 L, Hgb 12.8 L, Hct 38.0 L, MCV 96.9 H, MCH 32.7 H, MCHC 33.7, RDW Std Deviation 53.0 H, RDW Coeff of Valeria 14.9 H, Plt Count 70 L, MPV TNP, Immature Gran % (Auto) 1.400 H, Neut % (Auto) 87.7 H, Lymph % (Auto) 5.7 L, Dukes % (Auto) 4.6, Eos % (Auto) 0.2, Baso % (Auto) 0.4, Absolute Neuts (auto) 12.0 H, Absolute Lymphs (auto) 0.78 L, Nucleated RBC % 0, Differential Comment SCANNED, Sodium 139, Potassium 3.5, Chloride 106, Carbon Dioxide 16.5 L, Anion Gap 17 H, BUN 45 H, Creatinine 4.64 H, Estim Creat Clear Calc 15.78 L, Est GFR (MDRD) Non-Af 14 L, BUN/Creatinine Ratio 9.8 L, Glucose 86, Lactic Acid 1.5, Calcium 7.4 L, Total Bilirubin 1.07, Direct Bilirubin 0.51 H, AST 426 H, ALT 80 H, Alkaline Phosphatase 155 H, Total Protein 5.4 L, Albumin 3.6, Globulin 1.8 L Micro: Microbiology 03/05/25 23:40 Blood Culture (Wb) - Anticubital Right Blood Culture - Preliminary 03/05/25 23:30 Mucosa - Nose SARS-CoV-2, Influenza & RSV (PCR) - Final ABG Data ABG results: ABG 03/05/25 23:46 Specimen Type ART Sample Site R Radial pH 7.35 Bicarbonate Actual 17.5 L Total CO2 18 Base Excess -8 L O2 Saturation 93 L O2 % 3.0 ABG pCO2 31.8 L ABG pO2 68 L Julian Test Positive O2 Delivery Device Cannula Vent Mode Not entered Imaging Radiology Impression Chest X-Ray 03/05/25 23:29 IMPRESSION: No evidence of acute cardiopulmonary process. No evidence of CHF, pneumonia, dominant mass, pleural effusion or pneumothorax. Reading Location: [facility] Brain CT 03/05/25 23:30 IMPRESSION: The study is within normal limits. There is no evidence of acute intracranial process. Reading Location[facility] Abdomen/Pelvis CT 03/06/25 00:19 IMPRESSION: Numerous nondilated gas-filled bowel loops may indicate ileus, gastroenteritis or partial obstruction. Small consolidation in the left lung base. Small calcifications in the liver and spleen are consistent with old granulomatous disease. No discrete hepatic masses identified. Bladder distension is of uncertain clinical significance. Extensive atherosclerotic change without evidence of aneurysm. OVERALL FINAL ASSESSMENT: . LI-RADS is not meant to be used in patients <18 years or patients with cirrhosis due to congenital hepatic fibrosis or due to vascular disorders, because these patients have a lower chance of developing HCC. Reading Location: [facility] Foot X-Ray 03/06/25 02:00 IMPRESSION: The study is within normal limits. Reading Location: [facility]
[2025-03-06] MEDS: Rivaroxaban 20 MG Tablet PO (17:24)
[2025-03-06 23:40] LABS: Bedside Glucose 106 mg/dL (74-106)
[2025-03-07] VITALS (29 sets, daily range): BP systolic 81–124; BP diastolic 47–80; PULSE 96–113; RESP 18–28; TEMP 37.1–38.1; O2SAT 89–98; BMI 21.1
--- NOTE | 2025-03-07 06:00 | US_ITS ---
PROCEDURE: KIDNEY AND BLADDER 03/07/2025 REASON FOR EXAM: SEVERE NANCY, R/O POSTOBSTRUCTIVE TECHNIQUE: Grayscale and color Doppler imaging of the kidneys. COMPARISON: CT abdomen and pelvis 03/06/2025 FINDINGS: The right kidney measures 11.9 x 6.3 x 6.1 cm, in the left kidney measures 12.6 x 5.8 x 4.1 cm. Right renal cortex measures 1.6 cm and left measures 1.9 cm. No hydronephrosis or echogenic stones on either side. Normal color flow doppler signal. Bladder not well evaluated due to presence of Levy catheter per technologist report. Visible portions of the liver and spleen are unremarkable. US/Kidney and Bladder IMPRESSION: Unremarkable renal ultrasound, without hydronephrosis. Reading Location: [id number]
[2025-03-07] MEDS: Acetaminophen 325 MG Tablet 650 MG PO ×3 (06:04→19:50)
[2025-03-07 06:19] LABS: Hematocrit 33.8 % (40-54); Hemoglobin 11.8 g/dL (13.0-16.5); Mean Corp Hgb Conc 34.9 g/dL (32-36); Mean Corpuscular Hgb 32.7 pg (27.0-32.0); Mean Corpuscular Volume 93.6 fL (80-94); Mean Platelet Vol. 14.3 fl (6.2-12.0); POSITIVE COUNT YES; Platelet Count 54 K/mm3 (150-450); RBC Distribution Width CV 14.5 % (11.6-14.6); RBC Distribution Width SD 49.9 fl (35.1-43.9); Red Blood Count 3.61 M/mm3 (4.6-6.2)
[2025-03-07 06:44] LABS: Urine Sodium 27 mmol/L (Not Establ.)
[2025-03-07 06:47] LABS: ALB/GLOB Ratio 1.2 RATIO (0.9-2.4); AST(SGOT) 447 U/L (<=37); Alanine Aminotransfer ALT/SGPT 108 U/L (<=46); Albumin, Serum 2.9 g/dL (3.5-5.0); Alkaline Phosphatase 133 U/L (40-129); Anion Gap 14 (5-15); BUN 46 mg/dL (4-19); BUN/Creat Ratio 15.9 RATIO (10-20); Calcium,Total 6.8 mg/dL (7.6-11.0); Carbon Dioxide 15.2 mmol/L (21.0-32.0); Chloride 108 mmol/L (98-108); Creatinine, Serum 2.86 mg/dL (0.70-1.20); EST Glomerular Filtration Rate 25 (>60); Estimated Creatinine Clearance 25.39 ml/min (50-250); Globulin 2.4 g/dL (2.2-4.2); Glucose 102 mg/dL (70-99); Potassium 3.1 mmol/L (3.3-5.1); Protein, Total 5.3 g/dL (5.9-8.4); Sodium Level 137 mmol/L (133-145); Total Bilirubin 1.12 mg/dL (0.00-1.30)
[2025-03-07] MEDS: Cilostazol 50 MG Tablet PO ×2 (07:56→21:12)
[2025-03-07] MEDS: Pantoprazole Sodium 40 MG Tablet PO (07:56)
[2025-03-07] MEDS: buPROPion (SR) 150 MG Tablet.SA PO (07:56)
[2025-03-07] MEDS: Menthol/Lanolin/Calamine/Znox 113 GM Tube 1 APPLIC TOPICAL ×2 (07:56→21:24)
[2025-03-07] MEDS: Colestipol 1 GM TABLET PO (07:56)
[2025-03-07] MEDS: Metoprolol(XL)Succ 25 MG Tablet PO (07:56)
[2025-03-07] MEDS: Sertraline 50 MG Tablet PO (07:56)
[2025-03-07] MEDS: Potassium Chloride Oral Tablet 20 MEQ 40 MEQ PO (08:00)
[2025-03-07] MEDS: Aspirin E.C. 81 MG Tablet PO (08:00)
--- NOTE | 2025-03-07 09:32 | CASEMGMT ---
Social Work SW created in [facility], for pt if needed, a list of long-term facilities in network w/pt's insurance, in pt's preferred geographic area and complete w/quality and resource use data. SHELLIE Rogers
[2025-03-07] MEDS: Piperacil/Tazobactam 3.375 GM in 0.9% Normal Saline (50mL MB+) 50 ML IV ×2 (09:47→21:15)
--- NOTE | 2025-03-07 09:55 | CASEMGMT ---
Addendum entered by Madhuri Thompson 03/10/25 14:20: Nicolasa from [facility] notified that the pt's DC plan is now [facility]. Addendum entered by Madhuri Thompson 03/08/25 13:46: 03/07/25 @ 1200: Nicolasa from [facility] returns calls and states that they are able to accept for a tentative SOC Friday. CM to continue to follow for safe DC planning. Original Note: RN RUT Assessment Face to Face with patient for initial transition planning/care coordination assessment. RN RUT introduced self and role at [facility], pt voices understanding. Pt is A&Ox4 and is resting comfortably in bed and is calm. Pt's at bedside. Care providers, pharmacy, and demographics verified. Admitting dx: Sepsis LACE Strata: 2 PCP: Bud Dave Specialists: Vascular Team through [facility] Pharmacy: [facility] Insurance: LoggedIn A/B Prescription Benefit: Yes LNOK: Josette (W), Mary Jane (Daughter) Living Arrangements: Pt lives with his in a single story home with a ramp to enter ADLs/IADLs: Pt has a history of a right above knee amputation as of 2020. Pt supports the pt at home Transportation: Pt reports that he is able to drive. Pt also drives DME: Manual WC. Electric WC. Rollator. Grab bars. Pt states that he does not have a shower chair but would like one. CM to provide Rx. Pt is currently requiring additional oxygen and may qualify for home oxygen use. A verbal list of local in-network DME companies were provided to the pt at this time. Pt prefers [employer]. TC to [facility] who verifies that they do not provide shower chairs. CM to follow. HHC/SNF: Reports hx at [facility] and HHC subsequently in 2020. Pt has been to in the past for OP PT. Pt?s goal: Return home. Pt denies SNF needs. Plan: Anticipate home with skilled HHC, shower chair Rx, and potential new oxygen through [facility]. Pt states that she works and cannot be with the pt 28/04. Inquired about a private duty aid list. Pt denies and states that he cannot afford this but would like skilled HHC through his insurance. Pt denies wanting to review a list of local in-network HHC agencies and states that he prefers [facility]. Per ICU rounds, pt also has wounds. Pt and pt states that they did not realize this until this hospitalization. Pt was educated about the [facility] if needed but denies current needs. TC to [facility]. No answer, VM left with referral information. Current 6-Click score is 10 and PT is pending. Pt and pt's decline further questions or concerns at this time. CM to follow. Ana Thompson RN CM
--- NOTE | 2025-03-07 10:30 | PCM.PN.REN ---
Subjective Subjective Patient sitting up in bed. at bedside. Patient states feeling better, tremors almost gone. Denies any abdominal fullness. Objective Data Objective Data Vital Signs: Vital Signs Temp Pulse Resp BP Pulse Ox O2 Del Method O2 Flow Rate 99.9 F H 102 H 18 124/67 H 97 Nasal Cannula 5 03/07/25 06:00 03/07/25 07:56 03/07/25 06:00 03/07/25 06:00 03/07/25 09:18 03/07/25 09:18 03/07/25 09:18 Oxygen Flow Rate (L/min) 5 Oxygen Delivery Method Nasal Cannula Weight: 63 kg Body Mass Index (BMI) 21.1 Intake & Output: Intake and Output for Last 24 Hours 03/05/25 03/06/25 03/07/25 23:59 23:59 23:59 Intake Total 5159.05 / 5159.05 250 / 250 Output Total 1999 / 1999 650 / 650 Balance 3159.05 / 3159.05 -400 / -400 Lab / Micro Data 03/07/25 06:00 03/07/25 06:00 Labs: Laboratory Results - last 24 hr 03/06/25 04:31: Total Bilirubin 1.07, Direct Bilirubin 0.51 H, AST 426 H, ALT 80 H, Alkaline Phosphatase 155 H, Total Protein 5.4 L, Albumin 3.6, Globulin 1.8 L 03/06/25 23:21: POC Glucose 106 03/07/25 06:00: WBC 9.0, RBC 3.61 L, Hgb 11.8 L, Hct 33.8 L, MCV 93.6, MCH 32.7 H, MCHC 34.9, RDW Std Deviation 49.9 H, RDW Coeff of Valeria 14.5, Plt Count 54 L, MPV 14.3 H, Sodium 137, Potassium 3.1 L, Chloride 108, Carbon Dioxide 15.2 L, Anion Gap 14, BUN 46 H, Creatinine 2.86 H, Estim Creat Clear Calc 25.39 L, Est GFR (MDRD) Non-Af 25 L, BUN/Creatinine Ratio 15.9, Glucose 102 H, Calcium 6.8 L, Total Bilirubin 1.12, AST 447 H, ALT 108 H, Alkaline Phosphatase 133 H, Total Protein 5.3 L, Albumin 2.9 L, Globulin 2.4, Albumin/Globulin Ratio 1.2, Ur Random Sodium 27, Urine Creatinine 72.50 Micro: Microbiology 03/05/25 00:20 Urine, Catheterized Urine Culture - Final Klebsiella pneumoniae sp pneum 03/05/25 00:16 Blood Culture (Wb) - Anticubital Right Blood Culture - Preliminary GNR lactose gauge and weigh machine adjuster 03/05/25 23:40 Blood Culture (Wb) - Anticubital Right Blood Culture - Preliminary GNR lactose gauge and weigh machine adjuster 03/05/25 23:30 Mucosa - Nose SARS-CoV-2, Influenza & RSV (PCR) - Final Physical Exam Narrative Alert awake oriented x 3 no obvious distress s1s2 no murmurs lungs clear abdomen soft, non tender no edema sutherland + clear yellow urine in bag Assessment & Plan Assessment/Plan (1) Acute kidney injury: PLAN: - NANCY with normal baseline creatinine as of January 2025; NANCY likely from sepsis, possible urinary retention component. Came in with moderate obstructive symptoms, he says he could not void much for 4 days. Since placing Sutherland catheter he says abdomen feels much better, no pain or fullness. CT abdomen showed distended bladder but no hydronephrosis. Sutherland catheter indwelling, decent urine output. Creatinine 4.9 on admission and today 2.86. Potassium and bicarb acceptable. Potassium was low but patient did receive oral supplement this morning. No acute indication for renal replacement therapy. Continue to monitor renal function. Blood pressures acceptable -Preliminary blood culture gram-negative rods. Urine culture Klebsiella pneumoniae. Patient on IV antibiotics, Zosyn. Assessment and plan reviewed with Dr. Mills.
[2025-03-07] MEDS: Ferrous Gluconate 324 MG Tablet PO (11:57)
[2025-03-07] MEDS: oxyCODONE 5 MG Tablet 10 MG PO ×2 (12:01→19:53)
--- NOTE | 2025-03-07 13:00 | PCM.CONS.GEN ---
Assessment & Plan Assessment/Plan (1) Sepsis: (2) Bacteremia due to Gram-negative bacteria: PLAN: Sepsis improved. Due to uti. Ucx with klebs, bcx pending, cont zosyn for now. Plan on po abx at discharge. Will follow, thank you (3) UTI (urinary tract infection): (4) Acute kidney injury: HPI Consult Data Date of Consult: 03/07/25 HPI Narrative Reason for Consultation: bacteremia HPI Narrative: MYRIAM LISA, is a 59 M with h/o CAD, ICD in place, presented with 4 days chills, fever, whole body weakness. Some abd and flank pain. Had been having trouble urinating. Came to ED, admitted on zosyn for sepsis, now feeling better. Seen by urology, sutherland in place. Full ROS performed and neg except as noted above. PENDING SALE TO [facility] Medical History Unable to ambulate History of peripheral arterial disease Chronic anticoagulation History of OH (myocardial infarction) Fracture of left hip Tobacco abuse Wears glasses Wears dentures MRSA infection Alcohol use Depression Uses wheelchair DVT (deep venous thrombosis) Easy bruising Gastric reflux Smoker Hypertension Weight loss, abnormal Superficial thrombophlebitis of left leg Postoperative atrial fibrillation (04/30/20) Ischemia of right lower extremity Hyperhomocysteinemia Elevated LFTs Peripheral vascular disease of extremity with claudication Recurrent syncope Ventricular tachycardia Ischemic cardiomyopathy Atherosclerosis of coronary artery without angina pectoris Essential (primary) hypertension History of blood clots Hemorrhoids GERD (gastroesophageal reflux disease) Blood in stool Diarrhea Arthritis Home Medications ?Medication ?Instructions ?Recorded ?Last Taken ?Type aspirin 81 mg tablet,delayed 81 mg PO DAILY 02/22/20 09/27/23 History release (Adult Aspirin Regimen) atorvastatin 80 mg tablet 80 mg PO DAILY 02/22/20 09/26/23 History bupropion HCl 150 mg tablet,12 hr 150 mg PO DAILY 02/22/20 09/27/23 History sustained-release sertraline 50 mg tablet 50 mg PO DAILY 08/08/22 09/27/23 History cilostazol 50 mg tablet 50 mg PO BID 04/07/23 09/27/23 History gabapentin 600 mg tablet 600 mg PO TID 04/07/23 09/27/23 08:00 History omeprazole 40 mg capsule,delayed 40 mg PO DAILY 04/07/23 09/27/23 History release oxycodone 10 mg tablet 10 mg PO TID PRN severe pain 04/07/23 09/26/23 History (scale score 7-10) ferrous gluconate 324 mg (38 mg 324 mg PO DAILY anemia 06/08/24 Unknown History iron) tablet furosemide 40 mg tablet 40 mg PO QDAY PRN edema 06/09/24 Unknown History metoprolol succinate 25 mg 25 mg PO QDAY #90 tabs 10/25/24 Unknown Rx tablet,extended release 24 hr temazepam 15 mg capsule 5 mg PO .hs SLEEP 01/27/25 Unknown History colestipol 1 gram tablet 1 g PO QDAY #30 tabs 02/01/25 Unknown Rx multivitamin (Daily Multi-Vitamin 1 tab PO DAILY 03/05/25 Unknown History tablet) omeprazole 40 mg capsule,delayed 40 mg PO DAILY 03/05/25 Unknown History release potassium chloride 20 mEq 20 meq PO DAILY 03/05/25 Unknown History tablet,extended release rivaroxaban 20 mg tablet (Xarelto) 20 mg PO DAILY blood thinner 03/06/25 Unknown History Allergy/AdvReac Type Severity Reaction Status Date / Time shellfish derived Allergy Severe Swelling Verified 03/05/25 23:23 lorazepam (From Ativan) Allergy NEEDS Verified 03/05/25 23:23 FOLLOW-UP Family History Mother Heart disease Cancer Daughter Hyperhomocysteinemia Daughter Hyperhomocysteinemia Daughter Hyperhomocysteinemia Surgical History History of right lower extremity amputation History of right above knee amputation (05/27/20) History of right below knee amputation (05/17/20) H/O coronary artery bypass surgery (04/27/20) History of left heart catheterization (03/30/20) Status post femoral-popliteal bypass surgery History of femoropopliteal bypass History of implantable cardiac defibrillator (ICD) (06/19/11) History of coronary artery stent placement Social History Smoking Status: Current every day smoker tobacco type: cigarettes alcohol intake: current alcohol intake frequency: a few times a week Alcohol type: hard liquor substance use type: does not use caffeine: No Physical Exam Const alert, oriented x3 and no apparent distress General Appearance: cooperative HEENT normocephalic and head/scalp atraumatic Eyes PERRL and EOMs intact bilaterally Neck supple and No nodes Resp normal air movement and clear to auscultation bilaterally Cardio regular rate and regular rhythm GI soft to palpation, non-tender and non-distended Extremity General Extremity: Negative for edema Skin no rashes or lesions noted Neuro CN's II-XII intact bilaterally Lab / Micro Data Attestation: I reviewed the patient's lab results. 03/07/25 06:00 03/07/25 06:00 Labs: Laboratory Results - last 24 hr 03/06/25 04:31: Total Bilirubin 1.07, Direct Bilirubin 0.51 H, AST 426 H, ALT 80 H, Alkaline Phosphatase 155 H, Total Protein 5.4 L, Albumin 3.6, Globulin 1.8 L 03/06/25 23:21: POC Glucose 106 03/07/25 06:00: WBC 9.0, RBC 3.61 L, Hgb 11.8 L, Hct 33.8 L, MCV 93.6, MCH 32.7 H, MCHC 34.9, RDW Std Deviation 49.9 H, RDW Coeff of Valeria 14.5, Plt Count 54 L, MPV 14.3 H, Sodium 137, Potassium 3.1 L, Chloride 108, Carbon Dioxide 15.2 L, Anion Gap 14, BUN 46 H, Creatinine 2.86 H, Estim Creat Clear Calc 25.39 L, Est GFR (MDRD) Non-Af 25 L, BUN/Creatinine Ratio 15.9, Glucose 102 H, Calcium 6.8 L, Total Bilirubin 1.12, AST 447 H, ALT 108 H, Alkaline Phosphatase 133 H, Total Protein 5.3 L, Albumin 2.9 L, Globulin 2.4, Albumin/Globulin Ratio 1.2, Ur Random Sodium 27, Urine Creatinine 72.50 Micro: Microbiology 03/05/25 00:20 Urine, Catheterized Urine Culture - Final Klebsiella pneumoniae sp pneum 03/05/25 00:16 Blood Culture (Wb) - Anticubital Right Blood Culture - Preliminary GNR lactose american history professor 03/05/25 23:40 Blood Culture (Wb) - Anticubital Right Blood Culture - Preliminary GNR lactose american history professor
--- NOTE | 2025-03-07 13:41 | WOUNDNOTE ---
wound photo: left hip/sacrum/buttocks
--- NOTE | 2025-03-07 13:42 | WOUNDNOTE ---
wound photo: left heel
--- NOTE | 2025-03-07 13:43 | WOUNDNOTE ---
wound photo: left 2nd toe
--- NOTE | 2025-03-07 13:44 | WOUNDNOTE ---
wound photo:left lu
--- NOTE | 2025-03-07 15:36 | PN_ITS ---
Subjective Subjective Patient seen and examined. He was lying in bed and complaining of his heart racing. He denied any fever, chills, cough, chest pain, dizziness, nausea, vomiting or any other symptoms. Review of systems is otherwise negative. Objective Data Objective Data Vital Signs: Vital Signs Temp Pulse Resp BP Pulse Ox O2 Del Method O2 Flow Rate 99.5 F H 108 H 22 H 91/61 95 Nasal Cannula 2 03/07/25 07:00 03/07/25 15:00 03/07/25 15:00 03/07/25 15:00 03/07/25 15:00 03/07/25 15:00 03/07/25 15:00 Oxygen Flow Rate (L/min) 2 Oxygen Delivery Method Nasal Cannula Weight: 138 lb 14.259 oz Body Mass Index (BMI) 21.1 Intake & Output: Intake and Output for Last 24 Hours 03/05/25 03/06/25 03/07/25 23:59 23:59 23:59 Intake Total 5159.05 / 5159.05 620 / 620 Output Total 1999 / 1999 1300 / 1300 Balance 3159.05 / 3159.05 -680 / -680 Lab / Micro Data 03/07/25 06:00 03/07/25 06:00 Labs: Laboratory Results - last 24 hr 03/06/25 23:21: POC Glucose 106 03/07/25 06:00: WBC 9.0, RBC 3.61 L, Hgb 11.8 L, Hct 33.8 L, MCV 93.6, MCH 32.7 H, MCHC 34.9, RDW Std Deviation 49.9 H, RDW Coeff of Valeria 14.5, Plt Count 54 L, M PV 14.3 H, Sodium 137, Potassium 3.1 L, Chloride 108, Carbon Dioxide 15.2 L, Anion Gap 14, BUN 46 H, Creatinine 2.86 H, Estim Creat Clear Calc 25.39 L, Est GFR (MDRD) Non-Af 25 L, BUN/Creatinine Ratio 15.9, Glucose 102 H, Calcium 6.8 L, Total Bilirubin 1.12, AST 447 H, ALT 108 H, Alkaline Phosphatase 133 H, Total Protein 5.3 L, Albumin 2.9 L, Globulin 2.4, Albumin/Globulin Ratio 1.2, Ur Random Sodium 27, Urine Creatinine 72.50 Micro: Microbiology 03/07/25 11:30 Stool Enteric Bacteriology - Final 03/05/25 00:20 Urine, Catheterized Urine Culture - Final Klebsiella pneumoniae sp pneum 03/05/25 00:16 Blood Culture (Wb) - Anticubital Right Blood Culture - Preliminary GNR lactose spike driver 03/05/25 23:40 Blood Culture (Wb) - Anticubital Right Blood Culture - Preliminary GNR lactose spike driver 03/05/25 23:30 Mucosa - Nose SARS-CoV-2, Influenza & RSV (PCR) - Final Physical Exam Const alert and oriented x3 Constitutional Narrative: frail, looks uncomfortable HEENT normocephalic and head/scalp atraumatic HEENT Narrative: dry oral mucosa Eyes PERRL and EOMs intact bilaterally Neck no lymphadenopathy, supple and no JVD Lymph Lymphatic: no lymphedema noted Resp Resp Narrative: mildly diminished breath sounds bilaterally, mild crackles. On 2L of oxygen by nasal canula Cardio regular rhythm, S1 normal heart sound, S2 normal heart sound and no murmurs Cardio Narrative: sinus tachycardia GI normal to inspection, nondistended, normoactive bowel sounds, soft to palpation, non-tender and non-distended Extremity normal capillary refill, no clubbing, cyanosis or edema and no calf tenderness General Extremity: no tenderness to palpation of joints or extremities Skin Skin Narrative: stage I decubitus ulcer over buttocks and sacrum Neuro CN's II-XII intact bilaterally and no focal motor deficits Motor Exam: general weakness Psych thought process normal and cooperative Appearance: appropriate Assessment & Plan Assessment/Plan (1) Bacteremia due to Gram-negative bacteria: (2) Sepsis: (3) UTI (urinary tract infection): PLAN: Plan #Sepsis due to UTI and gram negative bacteremia * urnalysis showed evidence of UTI * blood cultures positive for gram negative rods * ID on board * on IV zosyn. * he has a pacemaker in place which appears to be bulging, and there is concern for infection. Will get a CT chest to evaluate to see if there is fluid around the pacemaker, Discussed with Dr. Wallace. If there is concern for infection with evidence of fluid collection, will need transfer to tertiary center. * #Gastroenteritis * Patient having diarrhea. He states has been having diarrhea for over a year now. CT of the abdomen showed dilated loops of bowel concerning for ileus versus gastroenteritis with small bowel obstruction. In light of him having diarrhea I think it is more likely due to gastroenteritis * stool sample sent for enteric panel. * #NANCY: * Creatinine was 4.64 on admission is now down to 2.86. * Continue gentle hydration with IV fluid. * Nephrology on board. * Thought to be due to acute sepsis infection. #Hypokalemia: Potassium 3.1. Replace and trend. #Elevated troponin: * Initial troponin was elevated but trended down to 103. This likely due to decreased clearance in light of impaired kidney function. * Will get 2D echo to evaluate cardiac * #Tremors: * patient complaining of tremors. thought to be due to gabapentin. * Dose was reduced; will hold until tremors resolved and then resume at a much lower dose. * #Stage I sacral decubitus ulcer: wound care on board. #Elevated liver enzymes: * these are chronically elevated, likely due to his history of chronic alcohol use disorder. * Trended up a bit more today. Will monitor. #Benign essential hypertension: on metoprolol #CAD s/p CABG: on aspirin, lipitor and cilostazol #GERD: on PPI #heart failure: s/p pacemaker/ICD. #Peripheral neuropathy: gabapentin held due to tremors #Anxiety and depression; on wellbutrin and zoloft. gabapentin held due to impaired renal function #Iron deficiency anemia: stable. #Depression; on wellbutrin DVT prophylaxis: on xarelto. INR today is 2.3. Charges/Coding Visit Charges Inpatient E&M: 80796 Subs Hosp L3
--- NOTE | 2025-03-07 16:05 | CT_ITS ---
PROCEDURE: CHEST WITHOUT CONTRAST 03/07/2025 REASON FOR EXAM: INFECTED PACEMAKER,CONCERNING FOR FLUID COLLECTION TECHNIQUE: Contiguous axial scans of 2.5 mm slice thicknesses. Sagittal and coronal reconstruction images were obtained. One or more dose reduction techniques were used (e.g., automated exposure control, adjustment of mA and/or kv according to patient size, use of iterative reconstruction technique). RADIATION DOSE SUMMARY: CTDlvol: 314.80 mGy COMPARISON: CTA chest dated 03/07/2021. Chest radiograph dated 03/06/2025. FINDINGS: CT CHEST: Lungs and Airways: Areas of ground-glass opacification are scattered throughout the upper lobes. Centrilobular emphysematous changes are noted bilaterally primarily in the upper lobes. Old healed granulomatous changes are noted. Pleura: Mild bilateral pleural thickening. No pleural effusions. No pneumothorax. Scattered areas of calcified pleural plaque are noted. Heart: Mild cardiac enlargement. Pericardium: No thickening. No pericardial effusion. Coronary arteries: Atherosclerotic calcific disease Thoracic Aorta: No thoracic aortic aneurysm or dissection. Atherosclerotic calcific disease. Summary Pulmonary Vessels: No large central filling defects. Mediastinum: No mediastinal hilar or axillary lymphadenopathy. Thyroid:No nodules. Bones: Median sternotomy wires. Soft tissues: Cardiac pacer generator imbedded in the soft tissues of the left anterior chest wall. No suspicious fluid collections. CT/Chest without Contrast IMPRESSION: 1. Bilateral areas of ground-glass haziness. This may be due to early inflamm ation. 2. Bilateral centrilobular emphysematous changes. 3. Old healed granulomatous changes. 4. Mild cardiac enlargement. 5. Scattered areas of calcified pleural plaque may indicate asbestosis exposur e. 6. Left-sided cardiac pacer generator and leads. No fluid collections are dem onstrated. 7. Other nonacute findings noted above. Reading Location: [place] [address]
--- NOTE | 2025-03-07 17:12 | ECHOD_ITS ---
Reason For Study Reason For Study: TACHYCARDIA Procedure This was a 2D Doppler, Color Flow transthoracic echocardiogram. The patient was scanned supine. Exam performed portable in ICU/CCU. Left Ventricle Mildly dilated left ventricular cavity. Moderate LV systolic dysfunction. Estimated LVEF 40%. Stage I diastolic dysfunction. Normal left ventricular thickness. Right Ventricle Normal right ventricle. Atria The left atrium is mildly enlarged. Normal right atrium. Mitral Valve Trivial mitral valve insufficiency. Tricuspid Valve Trivial tricuspid valve insufficiency. Normal pulmonary artery pressure. Aortic Valve Trisinus/trileaflet aortic valve. Trivial aortic valve insufficiency. Pulmonic Valve Trivial pulmonic valve insufficiency. Great Vessels Normal sized aortic root. Pericardium/Pleural No pericardial effusion. MMode/2D Measurements & Calculations LVIDd: 5.8 cm IVSd: 0.93 cm LVOT diam: 2.0 cm LVIDs: 4.0 cm LVPWd: 1.0 cm LVOT area: 3.2 cm2 RVDd: 3.0 cm FS: 31.2 % LA dimension: 4.3 cm asc Aorta Diam: 3.2 cm LAV(MOD- bp): 37.4 ml LAV(MOD- bp) Indexed: 21.2 ml/m2 LAV(MOD- sp2): 37.1 ml LAV(MOD- sp4): 35.9 ml SV(MOD- sp4): 40.0 ml LVAd ap4: 29.2 cm2 LVAd ap2: 28.3 cm2 LVLd ap4: 8.0 cm LVLd ap2: 8.3 cm SI(MOD- sp4): 22.7 ml/m2 EDV(MOD-sp4): 88.9 ml EDV(MOD-sp2): 82.2 ml EDV(sp4-el): 90.2 ml EDV(sp2-el): 81.8 ml LVAs ap4: 20.4 cm2 LVAs ap2: 19.2 cm2 LVLs ap4: 7.1 cm LVLs ap2: 7.0 cm ESV(MOD-sp4): 48.8 ml ESV(MOD-sp2): 45.0 ml ESV(sp4-el): 49.5 ml ESV(sp2-el): 44.5 ml EF(MOD-sp4): 45.0 % EF(MOD-sp2): 45.3 % EF(sp4-el): 45.1 % SV(MOD-sp2): 37.2 ml SV(sp4-el): 40.7 ml Ao sinus diam: 3.3 cm SI(MOD-sp2): 21.1 ml/m2 Ao ST Junction: 2.7 cm LA dimension(2D): 3.8 cm LA A4 area: 16.2 cm2 TAPSE: 1.8 cm RA A4 area: 11.1 cm2 Time Measurements MV dec time: 0.16 sec Doppler Measurements & Calculations MV E max alli: 83.2 cm/sec Lat Peak E' Alli: 12.3 cm/sec Med Peak E' Alli: 8.8 cm/sec MV A max alli: 105.8 cm/sec E/E' lat: 6.8 E/E' med: 9.5 MV E/A: 0.79 MV dec slope: 517.6 cm/sec2 Ao V2 max: 147.1 cm/sec LV V1 max: 123.7 cm/sec Ao max P.7 mmHg LV V1 max P.1 mmHg Ao V2 mean: 105.9 cm/sec LV V1 mean P.5 mmHg Ao mean P.1 mmHg LV V1 mean: 86.3 cm/sec Ao V2 VTI: 23.6 cm LV V1 VTI: 20.0 cm AV (velocity ratio): 0.85 MEKA(I,D): 2.7 cm2 MEKA(V,D): 2.7 cm2 SV(LVOT): 64.4 ml TV V2 max: 228.1 cm/sec PA V2 max: 102.9 cm/sec TV max P.8 mmHg ECHO/Echo Complete Interpretation Summary Mildly dilated left ventricular cavity. Moderate LV systolic dysfunction. Estim ated LVEF 40%. Stage I diastolic dysfunction. The left atrium is mildly enlarged. Ordering Physician: Leonor Adkins Referring Physician: Bud Dave Performed By: Jenny Murrell RDCS and Student
[2025-03-07] MEDS: Rivaroxaban 20 MG Tablet PO (18:10)
[2025-03-07] MEDS: Vancomycin IV 1,000 MG/200 ML BAG 200 MG IV (18:11)
[2025-03-07] MEDS: 0.9% Normal Saline (250mL Bag) 250 ML 15 ML IV (18:20)
--- NOTE | 2025-03-07 19:43 | PCM.RX.CS ---
Consult Antibiotic Management Pharmacy has been consulted to manage selected antibiotic: Vancomycin Type of Intervention Type of Consult: New start Suspected Infection Suspected Infection: Sepsis Labs Labs: Sodium 137 mmol/L (133-145) 03/07/25 06:00 Potassium 3.1 mmol/L (3.3-5.1) L 03/07/25 06:00 Chloride 108 mmol/L (98-108) 03/07/25 06:00 Carbon Dioxide 15.2 mmol/L (21.0-32.0) L 03/07/25 06:00 Anion Gap 14 (5-15) 03/07/25 06:00 BUN 46 mg/dL (4-19) H 03/07/25 06:00 Creatinine 2.86 mg/dL (0.70-1.20) H 03/07/25 06:00 Est GFR (MDRD) Non-Af 25 (>60) L 03/07/25 06:00 BUN/Creatinine Ratio 15.9 RATIO (10-20) 03/07/25 06:00 Glucose 102 mg/dL (70-99) H 03/07/25 06:00 Microbiology Microbiology: Microbiology 03/07/25 11:30 Stool Enteric Bacteriology - Final 03/05/25 00:20 Urine, Catheterized Urine Culture - Final Klebsiella pneumoniae sp pneum 03/05/25 00:16 Blood Culture (Wb) - Anticubital Right Blood Culture - Preliminary GNR lactose vice president quality improvement 03/05/25 23:40 Blood Culture (Wb) - Anticubital Right Blood Culture - Preliminary GNR lactose vice president quality improvement 03/05/25 23:30 Mucosa - Nose SARS-CoV-2, Influenza & RSV (PCR) - Final Dosing Weight Weight used for dosin kg Estimated Creatinine Clearance Estimated Creatinine Clearance: 25.39 ml/m Goal Trough Goal Trough: 15-20 mcg/mL Pharmacy Plan for Drug Dosing Pharmacy Plan for Drug Dosing: NEW START IV VANCOMYCIN Consulting Physician: GHASSAN Indication: SEPSIS Goal Trough: 15-20 SrCr: 2.86 mg/dL CrCl: 25.39 ml/min Comments: Per Dr. Adkins, no loading, use standard dosing. Patient did receive a dose at 0100 on 03/06/25 Vancomycin Dose: 1* 1000 mg, then 750 mg q24h starting at 1800 on 03/08/2025 Pending Level: 03/09/2024 @ 1750Pharmacy Service will continue to monitor and adjust dosing as required. Follow-Up Labs Follow-Up Labs: Trough: Vancomycin Date/Time Labs Ordered Labs to be done on [date and time ordered]: 03/09/2025 @5077
[2025-03-08] VITALS (27 sets, daily range): BP systolic 85–133; BP diastolic 55–82; PULSE 89–108; RESP 15–22; TEMP 36.8–38; O2SAT 90–97; BMI 21.4
[2025-03-08 04:04] LABS: Absolute Neutrophil Count 7.5 X10^3/uL (2.0-7.7); Basophil# 0.02 X10^3/uL; Basophil% 0.2 % (0-1); Eosinophil# 0.04 X10^3/uL; Eosinophils% 0.5 % (0-5); Hematocrit 33.7 % (40-54); Hemoglobin 11.8 g/dL (13.0-16.5); Lymphocyte % 5.8 % (19-41); Mean Corpuscular Hgb 32.2 pg (27.0-32.0); Mean Corpuscular Volume 91.8 fL (80-94); Mean Platelet Vol. 13.9 fl (6.2-12.0); Monocyte# 0.58 X10^3/uL; Monocyte% 6.7 % (0-10); NRBC Flagged by Analyzer 0 % (0-5); Neutrophil # 7.46 X10^3/uL (2.7-7.7); Neutrophil % 86.2 % (47-70); POSITIVE COUNT YES; POSITIVE DIFFERENTIAL YES; POSITIVE MORPHOLOGY YES; Platelet Count 60 K/mm3 (150-450); RBC Distribution Width CV 14.5 % (11.6-14.6); Red Blood Count 3.67 M/mm3 (4.6-6.2); White Blood Count 8.7 K/mm3 (4.4-11.0)
[2025-03-08 04:12] LABS: Differential Indicated SCAN CRITERIA MET
[2025-03-08 04:26] LABS: ALB/GLOB Ratio 1.1 RATIO (0.9-2.4); AST(SGOT) 339 U/L (<=37); Alanine Aminotransfer ALT/SGPT 119 U/L (<=46); Albumin, Serum 3.1 g/dL (3.5-5.0); Alkaline Phosphatase 136 U/L (40-129); Anion Gap 14 (5-15); BUN 34 mg/dL (4-19); BUN/Creat Ratio 18.7 RATIO (10-20); Calcium,Total 7.6 mg/dL (7.6-11.0); Carbon Dioxide 14.9 mmol/L (21.0-32.0); Chloride 107 mmol/L (98-108); EST Glomerular Filtration Rate 43 (>60); Estimated Creatinine Clearance 40.35 ml/min (50-250); Globulin 2.7 g/dL (2.2-4.2); Glucose 111 mg/dL (70-99); Potassium 2.8 mmol/L (3.3-5.1); Protein, Total 5.8 g/dL (5.9-8.4); Sodium Level 135 mmol/L (133-145); Total Bilirubin 0.82 mg/dL (0.00-1.30)
[2025-03-08 04:28] LABS: Differential Comment SCANNED; Platelet Estimate MOD DEC (ADEQ)
[2025-03-08] MEDS: Piperacil/Tazobactam 3.375 GM in 0.9% Normal Saline (50mL MB+) 50 ML IV (05:34)
[2025-03-08] MEDS: 0.9% Saline Lock 10 ML Syringe IV (05:37)
[2025-03-08] MEDS: Vancomycin IV 500 MG/100 ML BAG 100 MG IV (07:08)
[2025-03-08] MEDS: Potassium Chloride 10mEq/100mL 10 MEQ/100 ML IV.SOLN. 100 MEQ IV BOLUS ×4 (08:40→12:08)
[2025-03-08] MEDS: Pantoprazole Sodium 40 MG Tablet PO (08:44)
[2025-03-08] MEDS: buPROPion (SR) 150 MG Tablet.SA PO (08:44)
[2025-03-08] MEDS: Aspirin E.C. 81 MG Tablet PO (08:44)
[2025-03-08] MEDS: Metoprolol(XL)Succ 25 MG Tablet PO (08:44)
[2025-03-08] MEDS: Cilostazol 50 MG Tablet PO ×2 (08:44→20:53)
[2025-03-08] MEDS: Menthol/Lanolin/Calamine/Znox 113 GM Tube 1 APPLIC TOPICAL ×2 (08:44→20:55)
[2025-03-08] MEDS: Sertraline 50 MG Tablet PO (08:44)
[2025-03-08] MEDS: Colestipol 1 GM TABLET PO (08:44)
[2025-03-08] MEDS: Potassium Chloride Oral Tablet 20 MEQ 40 MEQ PO (08:48)
[2025-03-08] MEDS: oxyCODONE 5 MG Tablet 10 MG PO ×3 (08:49→20:54)
[2025-03-08] MEDS: Acetaminophen 325 MG Tablet 650 MG PO ×3 (08:49→20:55)
[2025-03-08] MEDS: Loperamide 2 MG Capsule PO ×2 (10:02→15:01)
--- NOTE | 2025-03-08 10:30 | PCM.PN.ID ---
Physical Exam Narrative Feeling better, no fever, no abd pain Const alert and no apparent distress General Appearance: cooperative Resp normal air movement and clear to auscultation bilaterally Cardio regular rate and regular rhythm GI soft to palpation, non-tender and non-distended Skin no rashes or lesions noted ID ID: Route of nutrition/ use of supplements: [] Nutritional Intake: [] IV Site: [] Levy Catheter: [] Assessment & Plan Assessment/Plan (1) Sepsis: (2) Bacteremia due to Gram-negative bacteria: PLAN: Sepsis improved. Due to uti. Ucx and bcx with klebs. Will narrow to ceftriaxone. Plan on short course po cefdinir 300mg bid at discharge. Will follow (3) UTI (urinary tract infection): (4) Acute kidney injury:
[2025-03-08] MEDS: Ceftriaxone 2 GM in 0.9% Normal Saline (50mL MB+) 50 ML IV (10:57)
--- NOTE | 2025-03-08 10:57 | PN.RENAL_ITS ---
Subjective Subjective Resting in bed. No overnight events. Denies any complaints today. Objective Data Objective Data Vital Signs: Vital Signs Temp Pulse Resp BP Pulse Ox O2 Del Method O2 Flow Rate 98.4 F 97 18 125/82 H 91 Room Air 2 03/08/25 08:00 03/08/25 08:44 03/08/25 08:00 03/08/25 08:44 03/08/25 08:00 03/08/25 08:00 03/07/25 17:00 Oxygen Flow Rate (L/min) 2 Oxygen Delivery Method Room Air Weight: 64 kg Body Mass Index (BMI) 21.4 Intake & Output: Intake and Output for Last 24 Hours 03/06/25 03/07/25 03/08/25 23:59 23:59 23:59 Intake Total 5159.05 / 5159.05 1047.5 / 1047.5 300 / 300 Output Total 1999 / 1999 1750 / 2450 1300 / 1300 Balance 3159.05 / 3159.05 -702.5 / -1402.5 -1000 / -1000 Lab / Micro Data 03/08/25 03:50 03/08/25 03:50 Labs: Laboratory Results - last 24 hr 03/08/25 03:50: WBC 8.7, RBC 3.67 L, Hgb 11.8 L, Hct 33.7 L, MCV 91.8, MCH 32.2 H, MCHC 35.0, RDW Std Deviation 49.0 H, RDW Coeff of Valeria 14.5, Plt Count 60 L, M PV 13.9 H, Immature Gran % (Auto) 0.600, Neut % (Auto) 86.2 H, Lymph % (Auto) 5.8 L, Buchanan % (Auto) 6.7, Eos % (Auto) 0.5, Baso % (Auto) 0.2, Absolute Neuts (auto) 7.5, Absolute Lymphs (auto) 0.50 L, Nucleated RBC % 0, Differential Comment SCANNED, Platelet Estimate MOD DEC, Sodium 135, Potassium 2.8 L, Chloride 107, Carbon Dioxide 14.9 L, Anion Gap 14, BUN 34 H, Creatinine 1.80 H, Estim Creat Clear Calc 40.35 L, Est GFR (MDRD) Non-Af 43 L, BUN/Creatinine Ratio 18.7, Glucose 111 H, Calcium 7.6, Total Bilirubin 0.82, AST 339 H, ALT 119 H, A lkaline Phosphatase 136 H, Total Protein 5.8 L, Albumin 3.1 L, Globulin 2.7, Albumin/Globulin Ratio 1.1 Micro: Microbiology 03/05/25 00:16 Blood Culture (Wb) - Anticubital Right Blood Culture - Final GNR lactose environmental coordinator 03/05/25 23:40 Blood Culture (Wb) - Anticubital Right Blood Culture - Final Klebsiella pneumoniae sp pneum 03/07/25 11:30 Stool Enteric Bacteriology - Final 03/05/25 00:20 Urine, Catheterized Urine Culture - Final Klebsiella pneumoniae sp pneum 03/05/25 23:30 Mucosa - Nose SARS-CoV-2, Influenza & RSV (PCR) - Final Radiography Diagnostic Testing: Radiology Impression Renal Ultrasound 03/07/25 06:00 IMPRESSION: Unremarkable renal ultrasound, without hydronephrosis. Reading Location: [id number] Chest CT 03/07/25 16:05 IMPRESSION: 1. Bilateral areas of ground-glass haziness. This may be due to early inflammation. 2. Bilateral centrilobular emphysematous changes. 3. Old healed granulomatous changes. 4. Mild cardiac enlargement. 5. Scattered areas of calcified pleural plaque may indicate asbestosis exposure. 6. Left-sided cardiac pacer generator and leads. No fluid collections are demonstrated. 7. Other nonacute findings noted above. Reading Location: [place] [address] Physical Exam Narrative Alert awake oriented x 3 no obvious distress s1s2 no murmurs lungs clear abdomen soft, non tender no edema sutherland + clear yellow urine in bag Assessment & Plan Assessment/Plan (1) Acute kidney injury: PLAN: - NANCY with normal baseline creatinine as of January 2025; NANCY likely from sepsis, possible urinary retention component. Came in with moderate obstructive symptoms, he says he could not void much for 4 days. Since placing Sutherland catheter he says abdomen feels much better, no pain or fullness. CT abdomen showed distended bladder but no hydronephrosis. Sutherland catheter indwelling, decent urine output, 1.3 L urine output today. Creatinine 4.9 on admission and today 1.8. Potassium and bicarb acceptable. Potassium low again today, patient receiving oral and IV piggyback potassium replacement. No acute indication for renal replacement therapy. Continue to monitor renal function. Blood pressures acceptable - Bacteremia gram-negative; Patient on IV antibiotics per ID, ceftriaxone. Concern for swelling at pacer site, noncontrast CT chest no fluid collection around left-sided pacer Assessment and plan reviewed with Dr. Mills.
[2025-03-08] MEDS: Ferrous Gluconate 324 MG Tablet PO (12:09)
--- NOTE | 2025-03-08 13:18 | PN_ITS ---
Subjective Subjective Patient seen and examined this morning. He is still having diarrhea. He states this diarrhea is chronic. He is on room air. Review of systems otherwise negative. Objective Data Objective Data Vital Signs: Vital Signs Temp Pulse Resp BP Pulse Ox O2 Del Method O2 Flow Rate 98.2 F 94 20 H 118/76 93 Room Air 2 03/08/25 12:00 03/08/25 12:00 03/08/25 12:00 03/08/25 12:00 03/08/25 12:00 03/08/25 12:00 03/07/25 17:00 Oxygen Flow Rate (L/min) 2 Oxygen Delivery Method Room Air Weight: 141 lb 1.533 oz Body Mass Index (BMI) 21.4 Intake & Output: Intake and Output for Last 24 Hours 03/06/25 03/07/25 03/08/25 23:59 23:59 23:59 Intake Total 5159.05 / 5159.05 1047.5 / 1047.5 550 / 550 Output Total 1999 / 1999 1750 / 2450 1750 / 1750 Balance 3159.05 / 3159.05 -702.5 / -1402.5 -1200 / -1200 Lab / Micro Data 03/08/25 03:50 03/08/25 03:50 Labs: Laboratory Results - last 24 hr 03/08/25 03:50: WBC 8.7, RBC 3.67 L, Hgb 11.8 L, Hct 33.7 L, MCV 91.8, MCH 32.2 H, MCHC 35.0, RDW Std Deviation 49.0 H, RDW Coeff of Valeria 14.5, Plt Count 60 L, M PV 13.9 H, Immature Gran % (Auto) 0.600, Neut % (Auto) 86.2 H, Lymph % (Auto) 5.8 L, Page % (Auto) 6.7, Eos % (Auto) 0.5, Baso % (Auto) 0.2, Absolute Neuts (auto) 7.5, Absolute Lymphs (auto) 0.50 L, Nucleated RBC % 0, Differential Comment SCANNED, Platelet Estimate MOD DEC, Sodium 135, Potassium 2.8 L, Chloride 107, Carbon Dioxide 14.9 L, Anion Gap 14, BUN 34 H, Creatinine 1.80 H, Estim Creat Clear Calc 40.35 L, Est GFR (MDRD) Non-Af 43 L, BUN/Creatinine Ratio 18.7, Glucose 111 H, Calcium 7.6, Total Bilirubin 0.82, AST 339 H, ALT 119 H, A lkaline Phosphatase 136 H, Total Protein 5.8 L, Albumin 3.1 L, Globulin 2.7, Albumin/Globulin Ratio 1.1 Micro: Microbiology 03/05/25 00:16 Blood Culture (Wb) - Anticubital Right Blood Culture - Final GNR lactose surfacing technician 03/05/25 23:40 Blood Culture (Wb) - Anticubital Right Blood Culture - Final Klebsiella pneumoniae sp pneum 03/07/25 11:30 Stool Enteric Bacteriology - Final 03/05/25 00:20 Urine, Catheterized Urine Culture - Final Klebsiella pneumoniae sp pneum 03/05/25 23:30 Mucosa - Nose SARS-CoV-2, Influenza & RSV (PCR) - Final Radiography Diagnostic Testing: Radiology Impression Renal Ultrasound 03/07/25 06:00 IMPRESSION: Unremarkable renal ultrasound, without hydronephrosis. Reading Location: [id number] Chest CT 03/07/25 16:05 IMPRESSION: 1. Bilateral areas of ground-glass haziness. This may be due to early inflammation. 2. Bilateral centrilobular emphysematous changes. 3. Old healed granulomatous changes. 4. Mild cardiac enlargement. 5. Scattered areas of calcified pleural plaque may indicate asbestosis exposure. 6. Left-sided cardiac pacer generator and leads. No fluid collections are demonstrated. 7. Other nonacute findings noted above. [facility] E[facility] 03/07/25 17:12 Interpretation Summary Mildly dilated left ventricular cavity. Moderate LV systolic dysfunction. Estimated LVEF 40%. Stage I diastolic dysfunction. The left atrium is mildly enlarged. Ordering Physician: Leonor Adkins Referring Physician: Bud Dave Performed By: Jenny Murrell RDCS and Student Physical Exam Const alert and oriented x3 Constitutional Narrative: frail looking HEENT normocephalic and head/scalp atraumatic Eyes PERRL and EOMs intact bilaterally Neck no lymphadenopathy, supple and no JVD Lymph Lymphatic: no lymphedema noted Resp Resp Narrative: mildly diminished breath sounds bilaterally, mild crackles. On room air. Cardio regular rhythm, S1 normal heart sound, S2 normal heart sound and no murmurs GI normal to inspection, nondistended, normoactive bowel sounds, soft to palpation, non-tender and non-distended Extremity normal capillary refill, no clubbing, cyanosis or edema and no calf tenderness General Extremity: no tenderness to palpation of joints or extremities Skin Skin Narrative: stage I decubitus ulcer over buttocks and sacrum. pacemaker in situ over left chest; area is nontender, not erythematous. Neuro CN's II-XII intact bilaterally and no focal motor deficits Motor Exam: general weakness Psych thought process normal and cooperative Appearance: appropriate Assessment & Plan Assessment/Plan (1) Bacteremia due to Gram-negative bacteria: (2) Sepsis: (3) UTI (urinary tract infection): PLAN: Plan #Sepsis due to UTI and gram negative bacteremia * urnalysis showed evidence of UTI * blood cultures positive for Klebsiella pneumoniae * ID on board * on IV zosyn. * he has a pacemaker in place which appears to be bulging, and there is concern for infection.CT of the chest done yesterday did not show any evidence of fluid collection under the pacemaker, or any signs of infection. * #Diarrhea * Patient having diarrhea. He states has been having diarrhea for over a year now. CT of the abdomen showed dilated loops of bowel concerning for ileus versus gastroenteritis with small bowel obstruction. In light of him having diarrhea I think it is more likely due to gastroenteritis * stool sample sent for enteric panel. * place on immodium to help with diarrhea. * * #NANCY: * Creatinine was 4.64 on admission is now down to 1.86 * Cr continues to trend downwards. * Continue gentle hydration with IV fluid. * Nephrology on board. * Thought to be due to acute sepsis infection. #Hypokalemia: Potassium 2.8 today. will aggressively Replace and trend. Check mg level #Elevated troponin: * Initial troponin was elevated but trended down to 103. This likely due to decreased clearance in light of impaired kidney function. * 2D echo showed EF of 40% with stage I diastolic dysfunction and moderate left ventricular systolic dysfunction as well as mildly dilated left ventricular cavity and normal ventricular thickness. * Cardiology on board. * #Tremors: * patient complaining of tremors. thought to be due to gabapentin. * Dose was reduced; will hold until tremors resolved and then resume at a much lower dose. * tremors have improved. * #Stage I sacral decubitus ulcer: wound care on board. #Elevated liver enzymes: * these are chronically elevated, likely due to his history of chronic alcohol use disorder. * Trended up a bit more today. Will monitor. #Benign essential hypertension: on metoprolol #CAD s/p CABG: on aspirin, lipitor and cilostazol #GERD: on PPI #heart failure: s/p pacemaker/ICD. #Peripheral neuropathy: gabapentin held due to tremors #Anxiety and depression; on welbutrin and zoloft. Gabapentin held due to impaired renal function #Iron deficiency anemia: stable. #Depression; on wellbutrin DVT prophylaxis: on xarelto. Charges/Coding Visit Charges Inpatient E&M: 52632 Subs Hosp L2
[2025-03-08 14:22] LABS: Magnesium 1.6 mg/dL (1.5-2.2)
--- NOTE | 2025-03-08 14:49 | CASEMGMT ---
SW met with patient after reviewing therapy notes. Therapy is recommending patient go to a SNF for short term rehab. SW introduced self and role at [facility]. SW explained therapy's recommendation. SW provided patient with a list of correction facility providers including quality and resource use data and consistent with patient?s preferred geographic region, medical needs, and insurance network were provided from the [employer]. SW asked patient to talk with his about a plan and if agreeable to pick 3-4 preferences off the list. SW will take care of contacting facilities. Patient said he will talk it over with his . Niyah George [employer] GUIDE EDIN
[2025-03-08] MEDS: Rivaroxaban 20 MG Tablet PO (16:41)
[2025-03-09] VITALS (25 sets, daily range): BP systolic 109–135; BP diastolic 51–83; PULSE 91–101; RESP 16–30; TEMP 36.5–37.4; O2SAT 91–100; BMI 21.2
[2025-03-09] MEDS: Loperamide 2 MG Capsule PO ×3 (01:45→17:41)
[2025-03-09 06:40] LABS: Absolute Lymphocyte Count 0.77 X10^3/uL (0.83-4.51); Absolute Neutrophil Count 6.1 X10^3/uL (2.0-7.7); Basophil# 0.03 X10^3/uL; Basophil% 0.4 % (0-1); Differential Indicated SCAN CRITERIA MET; Eosinophils% 1.3 % (0-5); Lymphocyte # 0.77 X10^3/ul (0.83-4.51); Lymphocyte % 9.7 % (19-41); Mean Corp Hgb Conc 35.3 g/dL (32-36); Mean Corpuscular Hgb 32.3 pg (27.0-32.0); Mean Corpuscular Volume 91.4 fL (80-94); Monocyte# 0.88 X10^3/uL; Monocyte% 11.1 % (0-10); NRBC Flagged by Analyzer 0 % (0-5); Neutrophil # 6.08 X10^3/uL (2.7-7.7); Neutrophil % 76.5 % (47-70); POSITIVE COUNT YES; POSITIVE MORPHOLOGY YES; Platelet Count 66 K/mm3 (150-450); RBC Distribution Width CV 14.8 % (11.6-14.6); RBC Distribution Width SD 49.5 fl (35.1-43.9); Red Blood Count 3.72 M/mm3 (4.6-6.2); White Blood Count 7.9 K/mm3 (4.4-11.0)
[2025-03-09 07:08] LABS: Differential Comment SCANNED
[2025-03-09 07:09] LABS: Platelet Estimate SLT DEC (ADEQ)
[2025-03-09 07:38] LABS: ALB/GLOB Ratio 1.1 RATIO (0.9-2.4); AST(SGOT) 199 U/L (<=37); Alanine Aminotransfer ALT/SGPT 114 U/L (<=46); Albumin, Serum 3.1 g/dL (3.5-5.0); Alkaline Phosphatase 132 U/L (40-129); Anion Gap 12 (5-15); BUN 20 mg/dL (4-19); BUN/Creat Ratio 17.6 RATIO (10-20); Calcium,Total 8.6 mg/dL (7.6-11.0); Carbon Dioxide 14.8 mmol/L (21.0-32.0); Chloride 111 mmol/L (98-108); Creatinine, Serum 1.14 mg/dL (0.70-1.20); EST Glomerular Filtration Rate 75 (>60); Estimated Creatinine Clearance 64.01 ml/min (50-250); Globulin 2.8 g/dL (2.2-4.2); Glucose 107 mg/dL (70-99); Potassium 3.3 mmol/L (3.3-5.1); Protein, Total 5.9 g/dL (5.9-8.4); Sodium Level 138 mmol/L (133-145); Total Bilirubin 0.56 mg/dL (0.00-1.30)
[2025-03-09] MEDS: Ceftriaxone 2 GM in 0.9% Normal Saline (50mL MB+) 50 ML IV (08:14)
[2025-03-09] MEDS: Sertraline 50 MG Tablet PO (08:16)
[2025-03-09] MEDS: Cilostazol 50 MG Tablet PO ×2 (08:16→21:20)
[2025-03-09] MEDS: Pantoprazole Sodium 40 MG Tablet PO (08:16)
[2025-03-09] MEDS: Metoprolol(XL)Succ 25 MG Tablet PO (08:16)
[2025-03-09] MEDS: Colestipol 1 GM TABLET PO (08:16)
[2025-03-09] MEDS: buPROPion (SR) 150 MG Tablet.SA PO (08:16)
[2025-03-09] MEDS: Aspirin E.C. 81 MG Tablet PO (08:16)
[2025-03-09] MEDS: Menthol/Lanolin/Calamine/Znox 113 GM Tube 1 APPLIC TOPICAL ×2 (08:17→21:19)
--- NOTE | 2025-03-09 10:30 | CASEMGMT ---
Social Work SW met with pt to discuss discharge planning. Pt is agreeable that SNF is needed but states that he did not have time to speak with his last evening regarding choices and pt is unwilling to make decision without her. SW offered to call pt , however pt states that spouse is working and cannot be bothered. Pt states his will be in later today and decision on SNF will be made at that time. SW to follow up. ADDY Branch
--- NOTE | 2025-03-09 10:41 | CASEMGMT ---
During ICU rounds, pt inquires about an AFO. This RN RUT collaborated with PT who states that they recommend the pt getting this through [employer] or [employer] due to cost savings. PT states that if the pt likes the DME, to then follow up with ortho and/or podiatry to get an order and get fitted through [employer]. This could be costly per the PT. ELINOR BETTENCOURT to the room at this time and updated the pt. Pt states understanding and that he prefers to go through [employer] [facility] or [employer] now. Pt thanks this RN RUT. Awaiting Rx signing for Shower Chair. Pt educated to shop around with the Rx and check resources such as [employer] and [employer] as well to save money. Pt states appreciation and denies further needs at this time.
[2025-03-09] MEDS: Ferrous Gluconate 324 MG Tablet PO (11:31)
[2025-03-09] MEDS: Acetaminophen 325 MG Tablet 650 MG PO ×2 (12:32→21:20)
[2025-03-09] MEDS: oxyCODONE 5 MG Tablet 10 MG PO ×2 (12:33→17:41)
--- NOTE | 2025-03-09 13:57 | CASEMGMT ---
Social Work SW met with pt who states his came in over lunch. Pt and SNF preference are 1. [facility] and 2. [facility]. GRICELDA front office medical assistant updated and to send referral to [facility]. ADDY Branch
--- NOTE | 2025-03-09 14:24 | PN.RENAL_ITS ---
Subjective Subjective Patient sitting in chair. Eating lunch. No overnight events. States feeling better. Denies any tremors today. Objective Data Objective Data Vital Signs: Vital Signs Temp Pulse Resp BP Pulse Ox O2 Del Method O2 Flow Rate 98.1 F 99 21 H 123/80 H 94 Room Air 2 03/09/25 12:00 03/09/25 14:00 03/09/25 14:00 03/09/25 14:00 03/09/25 14:00 03/09/25 14:00 03/07/25 17:00 Oxygen Flow Rate (L/min) 2 Oxygen Delivery Method Room Air Weight: 63.3 kg Body Mass Index (BMI) 21.2 Intake & Output: Intake and Output for Last 24 Hours 03/07/25 03/08/25 03/09/25 23:59 23:59 23:59 Intake Total 1047.5 / 1047.5 650 / 1000 400 / 400 Output Total 1750 / 2450 2200 / 2450 1075 / 1075 Balance -702.5 / -1402.5 -1550 / -1450 -675 / -675 Lab / Micro Data 03/09/25 06:25 03/09/25 06:25 Labs: Laboratory Results - last 24 hr 03/09/25 06:25: WBC 7.9, RBC 3.72 L, Hgb 12.0 L, Hct 34.0 L, MCV 91.4, MCH 32.3 H, MCHC 35.3, RDW Std Deviation 49.5 H, RDW Coeff of Valeria 14.8 H, Plt Count 66 L, MPV 14.0 H, Immature Gran % (Auto) 1.000 H, Neut % (Auto) 76.5 H, Lymph % (Auto) 9.7 L, Sutton % (Auto) 11.1 H, Eos % (Auto) 1.3, Baso % (Auto) 0.4, Absolute Neuts (auto) 6.1, Absolute Lymphs (auto) 0.77 L, Nucleated RBC % 0, Differential Comment SCANNED, Platelet Estimate SLT DEC, Sodium 138, Potassium 3.3, Chloride 111 H, Carbon Dioxide 14.8 L, Anion Gap 12, BUN 20 H, Creatinine 1.14, Estim Creat Clear Calc 64.01, Est GFR (MDRD) Non-Af 75, BUN/Creatinine Ratio 17.6, G lucose 107 H, Calcium 8.6, Total Bilirubin 0.56, AST 199 H, ALT 114 H, Alkaline Phosphatase 132 H, Total Protein 5.9, Albumin 3.1 L, Globulin 2.8, Albumin/Globulin Ratio 1.1 Micro: Microbiology 03/05/25 00:16 Blood Culture (Wb) - Anticubital Right Blood Culture - Final GNR lactose concrete conveyor operator 03/05/25 23:40 Blood Culture (Wb) - Anticubital Right Blood Culture - Final Klebsiella pneumoniae sp pneum 03/07/25 11:30 Stool Enteric Bacteriology - Final 03/05/25 00:20 Urine, Catheterized Urine Culture - Final Klebsiella pneumoniae sp pneum 03/05/25 23:30 Mucosa - Nose SARS-CoV-2, Influenza & RSV (PCR) - Final Physical Exam Narrative Alert awake oriented x 3 no obvious distress s1s2 no murmurs lungs clear abdomen soft, non tender no edema sutherland + clear yellow urine in bag Assessment & Plan Assessment/Plan (1) Acute kidney injury: PLAN: - NANCY with normal baseline creatinine as of January 2025; NANCY likely from sepsis, possible urinary retention component. Came in with moderate obstructive symptoms, he says he could not void much for 4 days. Since placing Sutherland catheter he says abdomen feels much better, no pain or fullness. CT abdomen showed distended bladder but no hydronephrosis. Sutherland catheter indwelling, decent urine output, 1.3 L urine output today. Creatinine 4.9 on admission and today 1.14. Potassium and bicarb acceptable. Potassium 3.3 today. Being started on Flomax, to remove Sutherland. - Bacteremia gram-negative; Patient on IV antibiotics per ID, ceftriaxone. Assessment and plan reviewed with Dr. Mills.
--- NOTE | 2025-03-09 14:46 | CASEMGMT ---
Discharge Planning Referral sent to [facility]. [facility] has accepted. Chayo Mills DC Planning Asst.
--- NOTE | 2025-03-09 17:35 | PN_ITS ---
Subjective Subjective Patient seen and examined. He had no active complaints today. He denied any shortness of breath, fever or chills nausea or vomiting. Review of systems otherwise negative. Labs and vitals reviewed. He has remained hemodynamically stable. Objective Data Objective Data Vital Signs: Vital Signs Temp Pulse Resp BP Pulse Ox O2 Del Method O2 Flow Rate 98.1 F 91 19 H 117/68 95 Room Air 2 03/09/25 12:00 03/09/25 16:00 03/09/25 16:00 03/09/25 16:00 03/09/25 16:00 03/09/25 16:00 03/07/25 17:00 Oxygen Flow Rate (L/min) 2 Oxygen Delivery Method Room Air Weight: 139 lb 8.842 oz Body Mass Index (BMI) 21.2 Intake & Output: Intake and Output for Last 24 Hours 03/07/25 03/08/25 03/09/25 23:59 23:59 23:59 Intake Total 1047.5 / 1047.5 650 / 1000 400 / 400 Output Total 1750 / 2450 2200 / 2450 1075 / 1075 Balance -702.5 / -1402.5 -1550 / -1450 -675 / -675 Lab / Micro Data 03/09/25 06:25 03/09/25 06:25 Labs: Laboratory Results - last 24 hr 03/09/25 06:25: WBC 7.9, RBC 3.72 L, Hgb 12.0 L, Hct 34.0 L, MCV 91.4, MCH 32.3 H, MCHC 35.3, RDW Std Deviation 49.5 H, RDW Coeff of Valeria 14.8 H, Plt Count 66 L, MPV 14.0 H, Immature Gran % (Auto) 1.000 H, Neut % (Auto) 76.5 H, Lymph % (Auto) 9.7 L, [place] % (Auto) 11.1 H, Eos % (Auto) 1.3, Baso % (Auto) 0.4, Absolute Neuts (auto) 6.1, Absolute Lymphs (auto) 0.77 L, Nucleated RBC % 0, Differential Comment SCANNED, Platelet Estimate SLT DEC, Sodium 138, Potassium 3.3, Chloride 111 H, Carbon Dioxide 14.8 L, Anion Gap 12, BUN 20 H, Creatinine 1.14, Estim Creat Clear Calc 64.01, Est GFR (MDRD) Non-Af 75, BUN/Creatinine Ratio 17.6, G lucose 107 H, Calcium 8.6, Total Bilirubin 0.56, AST 199 H, ALT 114 H, Alkaline Phosphatase 132 H, Total Protein 5.9, Albumin 3.1 L, Globulin 2.8, Albumin/Globulin Ratio 1.1 Micro: Microbiology 03/05/25 00:16 Blood Culture (Wb) - Anticubital Right Blood Culture - Final GNR lactose superintendent transmission 03/05/25 23:40 Blood Culture (Wb) - Anticubital Right Blood Culture - Final Klebsiella pneumoniae sp pneum 03/07/25 11:30 Stool Enteric Bacteriology - Final 03/05/25 00:20 Urine, Catheterized Urine Culture - Final Klebsiella pneumoniae sp pneum 03/05/25 23:30 Mucosa - Nose SARS-CoV-2, Influenza & RSV (PCR) - Final Physical Exam Const alert and oriented x3 Constitutional Narrative: frail looking HEENT normocephalic and head/scalp atraumatic Eyes PERRL and EOMs intact bilaterally Neck no lymphadenopathy, supple and no JVD Lymph Lymphatic: no lymphedema noted Resp Resp Narrative: mildly diminished breath sounds bilaterally, mild crackles. On room air. Cardio regular rate, regular rhythm, S1 normal heart sound, S2 normal heart sound and no murmurs GI normal to inspection, nondistended, normoactive bowel sounds, soft to palpation, non-tender and non-distended Extremity no calf tenderness Extremity Narrative: right AKA General Extremity: no tenderness to palpation of joints or extremities Skin Skin Narrative: stage I decubitus ulcer over buttocks and sacrum. pacemaker in situ over left chest; area is nontender, not erythematous. Neuro CN's II-XII intact bilaterally and no focal motor deficits Motor Exam: general weakness Psych thought process normal and cooperative Appearance: appropriate Assessment & Plan Assessment/Plan (1) Bacteremia due to Gram-negative bacteria: (2) Sepsis: (3) UTI (urinary tract infection): PLAN: Plan #Sepsis due to UTI and gram negative bacteremia * urnalysis showed evidence of UTI * blood cultures positive for Klebsiella pneumoniae * ID on board * on IV zosyn. * he has a pacemaker in place which appears to be bulging, and there is concern for infection.CT of the chest done did not show any evidence of fluid collection under the pacemaker, or any signs of infection. * #Diarrhea * Patient having diarrhea. He states has been having diarrhea for over a year now. CT of the abdomen showed dilated loops of bowel concerning for ileus versus gastroenteritis with small bowel obstruction. In light of him having diarrhea I think it is more likely due to gastroenteritis * stool sample sent for enteric panel. * on immodium. Diarrhea is resolving. * * #NANCY: * Creatinine was 4.64 on admission is now down to 1.14. * Nephrology on board. * Thought to be due to acute sepsis infection. #Hypokalemia: Potassium 3.3 today. #Elevated troponin: * Initial troponin was elevated but trended down to 103. This likely due to decreased clearance in light of impaired kidney function. * 2D echo showed EF of 40% with stage I diastolic dysfunction and moderate left ventricular systolic dysfunction as well as mildly dilated left ventricular cavity and normal ventricular thickness. * Cardiology on board. * #Tremors: * patient complaining of tremors. thought to be due to gabapentin. * Dose was reduced; will hold until tremors resolved and then resume at a much lower dose. * tremors have improved. * #Stage I sacral decubitus ulcer: wound care on board. #Elevated liver enzymes: * these are chronically elevated, likely due to his history of chronic alcohol use disorder. * will monitor. Stable. #Benign essential hypertension: on metoprolol #CAD s/p CABG: on aspirin, lipitor and cilostazol #GERD: on PPI #heart failure: s/p pacemaker/ICD. #Peripheral neuropathy: gabapentin held due to tremors #Anxiety and depression; on welbutrin and zoloft. Gabapentin held due to impaired renal function #Iron deficiency anemia: stable. #Depression; on wellbutrin DVT prophylaxis: on xarelto. Disposition; transfer to PCU Charges/Coding Visit Charges Inpatient E&M: 57176 Subs Hosp L2
[2025-03-09] MEDS: Tamsulosin HCl 0.4 MG Capsule PO (17:41)
[2025-03-09] MEDS: Rivaroxaban 20 MG Tablet PO (17:42)
[2025-03-09] MEDS: 0.9% Saline Lock 10 ML Syringe IV (21:19)
[2025-03-10] VITALS (7 sets, daily range): BP systolic 118–144; BP diastolic 72–84; PULSE 97–103; RESP 18–22; TEMP 36.3–36.9; O2SAT 93–99; BMI 21.1
[2025-03-10] MEDS: oxyCODONE 5 MG Tablet 10 MG PO ×4 (02:32→22:38)
[2025-03-10 06:00] LABS: Absolute Lymphocyte Count 0.98 X10^3/uL (0.83-4.51); Absolute Neutrophil Count 6.1 X10^3/uL (2.0-7.7); Basophil# 0.03 X10^3/uL; Basophil% 0.4 % (0-1); Eosinophil# 0.13 X10^3/uL; Eosinophils% 1.6 % (0-5); Hematocrit 33.1 % (40-54); Hemoglobin 11.7 g/dL (13.0-16.5); Lymphocyte # 0.98 X10^3/ul (0.83-4.51); Lymphocyte % 11.9 % (19-41); Mean Corp Hgb Conc 35.3 g/dL (32-36); Mean Corpuscular Hgb 32.1 pg (27.0-32.0); Mean Corpuscular Volume 90.7 fL (80-94); Mean Platelet Vol. 13.1 fl (6.2-12.0); Monocyte# 0.99 X10^3/uL; NRBC Flagged by Analyzer 0 % (0-5); Neutrophil # 6.07 X10^3/uL (2.7-7.7); Neutrophil % 73.4 % (47-70); POSITIVE COUNT YES; Platelet Count 86 K/mm3 (150-450); RBC Distribution Width CV 14.6 % (11.6-14.6); RBC Distribution Width SD 49.1 fl (35.1-43.9); Red Blood Count 3.65 M/mm3 (4.6-6.2); White Blood Count 8.3 K/mm3 (4.4-11.0)
[2025-03-10 06:28] LABS: AST(SGOT) 141 U/L (<=37); Alanine Aminotransfer ALT/SGPT 109 U/L (<=46); Albumin, Serum 3.1 g/dL (3.5-5.0); Alkaline Phosphatase 134 U/L (40-129); Anion Gap 13 (5-15); BUN 17 mg/dL (4-19); BUN/Creat Ratio 17.5 RATIO (10-20); Calcium,Total 9.1 mg/dL (7.6-11.0); Carbon Dioxide 16.3 mmol/L (21.0-32.0); Chloride 112 mmol/L (98-108); Creatinine, Serum 0.99 mg/dL (0.70-1.20); EST Glomerular Filtration Rate 89 (>60); Estimated Creatinine Clearance 73.36 ml/min (50-250); Glucose 101 mg/dL (70-99); Potassium 3.5 mmol/L (3.3-5.1); Protein, Total 6.1 g/dL (5.9-8.4); Sodium Level 142 mmol/L (133-145); Total Bilirubin 0.71 mg/dL (0.00-1.30)
--- NOTE | 2025-03-10 08:13 | CASEMGMT ---
SW has accepted patient. SW will notify patient. Patient will require prior authorization. Niyah JESUS
[2025-03-10] MEDS: Acetaminophen 325 MG Tablet 650 MG PO ×2 (09:50→22:38)
[2025-03-10] MEDS: buPROPion (SR) 150 MG Tablet.SA PO (09:51)
[2025-03-10] MEDS: Metoprolol(XL)Succ 25 MG Tablet PO (09:51)
[2025-03-10] MEDS: Sertraline 50 MG Tablet PO (09:51)
[2025-03-10] MEDS: Pantoprazole Sodium 40 MG Tablet PO (09:51)
[2025-03-10] MEDS: Cilostazol 50 MG Tablet PO ×2 (09:51→22:32)
[2025-03-10] MEDS: Colestipol 1 GM TABLET PO (09:51)
[2025-03-10] MEDS: Aspirin E.C. 81 MG Tablet PO (09:51)
[2025-03-10] MEDS: Ceftriaxone 2 GM in 0.9% Normal Saline (50mL MB+) 50 ML IV (10:00)
[2025-03-10] MEDS: Menthol/Lanolin/Calamine/Znox 113 GM Tube 1 APPLIC TOPICAL ×2 (10:03→22:33)
--- NOTE | 2025-03-10 11:15 | CASEMGMT ---
Addendum entered by Niyah George 03/10/25 11:28: SW sent a referral to [facility] via [facility]. Niyah JESUS Original Note: SW spoke with patient and let him know that [facility] can accept him. Patient asked if that is the one by [facility]. SW explained that [facility] is the facility closest to [facility]. Patient said it was just built the last couple of years. SW told patient he is thinking of [facility], not [facility]. Patient agreed. SW told patient that a referral will be sent to [facility]. Niyah JESUS
--- NOTE | 2025-03-10 11:42 | CASEMGMT ---
[facility] has accepted and will submit for precert. PSYCHIATRIC asked to cancel referral. Chayo Mills DC Planning Asst.
--- NOTE | 2025-03-10 12:08 | PN_ITS ---
Subjective Subjective Patient seen and examined. He was lying comfortably in bed. His nurse was concerned the patient had had some tremors and shakes. Patient said he usually felt this way when he had not received his oxycodone for a bit and said that the symptoms resolved when he took his oxycodone today. Review of systems otherwise negative. Objective Data Objective Data Vital Signs: Vital Signs Temp Pulse Resp BP Pulse Ox O2 Del Method O2 Flow Rate 98.4 F 102 H 20 H 118/72 97 Room Air 2 03/10/25 09:30 03/10/25 09:51 03/10/25 09:30 03/10/25 09:30 03/10/25 09:30 03/10/25 09:30 03/07/25 17:00 Oxygen Flow Rate (L/min) 2 Oxygen Delivery Method Room Air Weight: 138 lb 14.259 oz Body Mass Index (BMI) 21.1 Intake & Output: Intake and Output for Last 24 Hours 03/08/25 03/09/25 03/10/25 23:59 23:59 23:59 Intake Total 650 / 1000 900 / 1140 290 / 290 Output Total 2200 / 2450 1375 / 1375 525 / 525 Balance -1550 / -1450 -475 / -235 -235 / -235 Lab / Micro Data 03/10/25 05:39 03/10/25 05:39 Labs: Laboratory Results - last 24 hr 03/10/25 05:39: WBC 8.3, RBC 3.65 L, Hgb 11.7 L, Hct 33.1 L, MCV 90.7, MCH 32.1 H, MCHC 35.3, RDW Std Deviation 49.1 H, RDW Coeff of Valeria 14.6, Plt Count 86 L, M PV 13.1 H, Immature Gran % (Auto) 0.700, Neut % (Auto) 73.4 H, Lymph % (Auto) 11.9 L, [place] % (Auto) 12.0 H, Eos % (Auto) 1.6, Baso % (Auto) 0.4, Absolute Neuts (auto) 6.1, Absolute Lymphs (auto) 0.98, Nucleated RBC % 0, Sodium 142, Potassium 3.5, Chloride 112 H, Carbon Dioxide 16.3 L, Anion Gap 13, BUN 17, Creatinine 0.99, Estim Creat Clear Calc 73.36, Est GFR (MDRD) Non-Af 89, BUN/Creatinine Ratio 17.5, Glucose 101 H, Calcium 9.1, Total Bilirubin 0.71, AST 141 H, ALT 109 H, Alkaline Phosphatase 134 H, Total Protein 6.1, Albumin 3.1 L, Globulin 3.0, Albumin/Globulin Ratio 1.0 Micro: Microbiology 03/05/25 00:16 Blood Culture (Wb) - Anticubital Right Blood Culture - Final GNR lactose deputy sheriff custody 03/05/25 23:40 Blood Culture (Wb) - Anticubital Right Blood Culture - Final Klebsiella pneumoniae sp pneum 03/07/25 11:30 Stool Enteric Bacteriology - Final 03/05/25 00:20 Urine, Catheterized Urine Culture - Final Klebsiella pneumoniae sp pneum 03/05/25 23:30 Mucosa - Nose SARS-CoV-2, Influenza & RSV (PCR) - Final Physical Exam Const alert and oriented x3 Constitutional Narrative: frail looking General Appearance: cooperative HEENT normocephalic and head/scalp atraumatic Eyes PERRL and EOMs intact bilaterally Neck no lymphadenopathy, supple and no JVD Lymph Lymphatic: no lymphedema noted Resp Resp Narrative: mildly diminished breath sounds bilaterally, mild crackles. On room air. Cardio regular rhythm, S1 normal heart sound, S2 normal heart sound and no murmurs Cardio Narrative: sinus tachycardia GI normal to inspection, nondistended, normoactive bowel sounds, soft to palpation, non-tender and non-distended Extremity normal capillary refill, no clubbing, cyanosis or edema and no calf tenderness Extremity Narrative: right AKA General Extremity: no tenderness to palpation of joints or extremities Skin Skin Narrative: stage I decubitus ulcer over buttocks and sacrum. pacemaker in situ over left chest; area is nontender, not erythematous. Neuro CN's II-XII intact bilaterally and no focal motor deficits Motor Exam: general weakness Psych thought process normal and cooperative Appearance: appropriate Assessment & Plan Assessment/Plan (1) Bacteremia due to Gram-negative bacteria: (2) Sepsis: (3) UTI (urinary tract infection): PLAN: Plan #Sepsis due to UTI and gram negative bacteremia * urnalysis showed evidence of UTI * blood cultures positive for Klebsiella pneumoniae * ID on board * on IV zosyn. * he has a pacemaker in place which appears to be bulging, and there is concern for infection.CT of the chest done did not show any evidence of fluid collection under the pacemaker, or any signs of infection. * per ID, ok for short course of cefdinir PO 300mg bid at discharge. * #Diarrhea * Patient having diarrhea. He states has been having diarrhea for over a year now. CT of the abdomen showed dilated loops of bowel concerning for ileus versus gastroenteritis with small bowel obstruction. In light of him having diarrhea I think it is more likely due to gastroenteritis * stool enteric bacteriology was negative. * on immodium. Diarrhea is resolving. * * #NANCY: * resolved. Cr is now 0.99. #Hypokalemia: Potassium 3.5 today. Resolved. #Elevated troponin: * Initial troponin was elevated but trended down to 103. This likely due to decreased clearance in light of impaired kidney function. * 2D echo showed EF of 40% with stage I diastolic dysfunction and moderate left ventricular systolic dysfunction as well as mildly dilated left ventricular cavity and normal ventricular thickness. * Cardiology on board. * #Tremors: * patient complaining of tremors. thought to be due to gabapentin. * Dose was reduced; will hold until tremors resolved and then resume at a much lower dose. * tremors have improved. * #Stage I sacral decubitus ulcer: wound care on board. #Elevated liver enzymes: * these are chronically elevated, likely due to his history of chronic alcohol use disorder. * will monitor. Stable. #Benign essential hypertension: on metoprolol #CAD s/p CABG: on aspirin, lipitor and cilostazol #GERD: on PPI #heart failure: s/p pacemaker/ICD. #Peripheral neuropathy: gabapentin held due to tremors #Anxiety and depression; on welbutrin and zoloft. Gabapentin held due to impaired renal function #Iron deficiency anemia: stable. #Depression; on wellbutrin DVT prophylaxis: on xarelto. Disposition;awaiting placement. Charges/Coding Visit Charges Inpatient E&M: 86057 Subs Hosp L2
--- NOTE | 2025-03-10 12:48 | CASEMGMT ---
SOLOMON was able to notify patient that [facility] has accepted him. SOLOMON again told patient that this is the facility that was most recently built and is closest to [facility]. SOLOMON asked patient if this is the right facility and he said yes. SOLOMON asked patient if he would like SOLOMON to call his . Patient said he will get a hold of her. Plan: d/c to [facility] pending pre-cert. Niyah JESUS
[2025-03-10] MEDS: Ferrous Gluconate 324 MG Tablet PO (12:55)
[2025-03-10] MEDS: Rivaroxaban 20 MG Tablet PO (16:29)
[2025-03-10] MEDS: Tamsulosin HCl 0.4 MG Capsule PO (16:29)
[2025-03-10] MEDS: 0.9% Saline Lock 10 ML Syringe IV (22:34)
[2025-03-11] VITALS (8 sets, daily range): BP systolic 118–158; BP diastolic 70–85; PULSE 90–98; RESP 17–24; TEMP 36.4–37; O2SAT 91–94; BMI 21.4
--- NOTE | 2025-03-11 00:16 | PCM.HOSP.N ---
Hospitalist Note Patient with notable agitation, appearance of withdrawal. Discussed with staff and family contacted and confirmed he drinks~ 20 oz tumbler full of black velvet whiskey twice daily. Will initiate on phenobarbital taper, obtain magnesium and phosphorus levels. Will defer any Ativan usage as family reports that this makes him extremely belligerent and also more agitated.
[2025-03-11] MEDS: Phenobarbital Sodium 65 MG/ML Vial 100 MG IV (01:01)
[2025-03-11] MEDS: Phenobarbital 32.4 MG Tablet 64.8 MG PO ×5 (04:25→21:34)
[2025-03-11 06:54] LABS: Absolute Lymphocyte Count 1.06 X10^3/uL (0.83-4.51); Absolute Neutrophil Count 7.6 X10^3/uL (2.0-7.7); Basophil# 0.02 X10^3/uL; Basophil% 0.2 % (0-1); Eosinophil# 0.12 X10^3/uL; Eosinophils% 1.2 % (0-5); Hematocrit 31.5 % (40-54); Hemoglobin 11.2 g/dL (13.0-16.5); Lymphocyte # 1.06 X10^3/ul (0.83-4.51); Lymphocyte % 10.7 % (19-41); Mean Corp Hgb Conc 35.6 g/dL (32-36); Mean Corpuscular Hgb 31.8 pg (27.0-32.0); Mean Corpuscular Volume 89.5 fL (80-94); Mean Platelet Vol. 12.7 fl (6.2-12.0); Monocyte# 1.01 X10^3/uL; Monocyte% 10.2 % (0-10); NRBC Flagged by Analyzer 0 % (0-5); Neutrophil # 7.64 X10^3/uL (2.7-7.7); Neutrophil % 76.8 % (47-70); Platelet Count 138 K/mm3 (150-450); RBC Distribution Width CV 14.8 % (11.6-14.6); RBC Distribution Width SD 48.7 fl (35.1-43.9); Red Blood Count 3.52 M/mm3 (4.6-6.2); White Blood Count 9.9 K/mm3 (4.4-11.0)
[2025-03-11 07:37] LABS: AST(SGOT) 114 U/L (<=37); Alanine Aminotransfer ALT/SGPT 100 U/L (<=46); Albumin, Serum 3.2 g/dL (3.5-5.0); Alkaline Phosphatase 124 U/L (40-129); Anion Gap 13 (5-15); BUN 16 mg/dL (4-19); BUN/Creat Ratio 19.6 RATIO (10-20); Calcium,Total 9.5 mg/dL (7.6-11.0); Carbon Dioxide 18.5 mmol/L (21.0-32.0); Chloride 111 mmol/L (98-108); Creatinine, Serum 0.83 mg/dL (0.70-1.20); EST Glomerular Filtration Rate 102 (>60); Estimated Creatinine Clearance 89.03 ml/min (50-250); Glucose 106 mg/dL (70-99); Potassium 3.1 mmol/L (3.3-5.1); Protein, Total 6.2 g/dL (5.9-8.4); Sodium Level 143 mmol/L (133-145); Total Bilirubin 0.73 mg/dL (0.00-1.30)
[2025-03-11 07:51] LABS: Magnesium 1.6 mg/dL (1.5-2.2); Phosphorus 3.9 mg/dL (2.7-4.5)
[2025-03-11] MEDS: Sertraline 50 MG Tablet PO (08:40)
[2025-03-11] MEDS: buPROPion (SR) 150 MG Tablet.SA PO (08:40)
[2025-03-11] MEDS: Metoprolol(XL)Succ 25 MG Tablet PO (08:40)
[2025-03-11] MEDS: Thiamine Hydrochloride 100 MG Tablet PO (08:41)
[2025-03-11] MEDS: Aspirin E.C. 81 MG Tablet PO (08:41)
[2025-03-11] MEDS: Colestipol 1 GM TABLET PO (08:41)
[2025-03-11] MEDS: Pantoprazole Sodium 40 MG Tablet PO (08:41)
[2025-03-11] MEDS: Cilostazol 50 MG Tablet PO ×2 (08:41→21:34)
[2025-03-11] MEDS: Multivitamins,Ther W-Minerals Tablet 1 TABLET PO (08:41)
[2025-03-11] MEDS: Folic Acid 1 MG Tablet PO (08:41)
[2025-03-11] MEDS: Ceftriaxone 2 GM in 0.9% Normal Saline (50mL MB+) 50 ML IV (08:43)
[2025-03-11] MEDS: Menthol/Lanolin/Calamine/Znox 113 GM Tube 1 APPLIC TOPICAL ×2 (08:51→21:34)
--- NOTE | 2025-03-11 12:33 | CASEMGMT ---
[facility] has obtained auth to admit. SW updated. Chayo Mills DC Planning Asst.
[2025-03-11] MEDS: Ferrous Gluconate 324 MG Tablet PO (12:39)
--- NOTE | 2025-03-11 14:09 | CASEMGMT ---
Patient will likely not discharge until Friday. SW completed a PASRR in tu[facility]nr system. Plan: d/c to [facility] under skilled level of care on a PASRR. Physicians will transport patient. Niyah JESUS
[2025-03-11] MEDS: Potassium Chloride Oral Tablet 20 MEQ 40 MEQ PO (14:24)
[2025-03-11] MEDS: oxyCODONE 5 MG Tablet 10 MG PO (14:24)
--- NOTE | 2025-03-11 14:25 | PN.HOSP_ITS ---
Subjective Subjective Has some agitation overnight and hallucinations which she stated occur when he gets frustrated with his pain in his neck and his narcotics on time. He was felt that he could be going through alcohol withdrawal 5 days after admission Objective Data Objective Data Vital Signs: Vital Signs Temp Pulse Resp BP Pulse Ox O2 Del Method O2 Flow Rate 97.9 F 90 18 158/78 H 94 Room Air 2 03/11/25 08:00 03/11/25 08:40 03/11/25 08:00 03/11/25 08:00 03/11/25 08:00 03/11/25 08:30 03/07/25 17:00 FiO2 92 03/11/25 01:00 Oxygen Flow Rate (L/min) 2 Oxygen Delivery Method Room Air Weight: 141 lb 5.061 oz Body Mass Index (BMI) 21.4 Intake & Output: Intake and Output for Last 24 Hours 03/10/25 03/11/25 03/12/25 03:59 03:59 03:59 Intake Total 790 / 790 1110 / 1110 270 / 270 Output Total 1125 / 1125 1725 / 1725 300 / 300 Balance -335 / -335 -615 / -615 -30 / -30 Lab / Micro Data 03/11/25 06:20 03/11/25 06:20 Labs: Laboratory Results - last 24 hr 03/11/25 06:20: WBC 9.9, RBC 3.52 L, Hgb 11.2 L, Hct 31.5 L, MCV 89.5, MCH 31.8, MCHC 35.6, RDW Std Deviation 48.7 H, RDW Coeff of Valeria 14.8 H, Plt Count 138 L, M PV 12.7 H, Immature Gran % (Auto) 0.900, Neut % (Auto) 76.8 H, Lymph % (Auto) 10.7 L, [place] % (Auto) 10.2 H, Eos % (Auto) 1.2, Baso % (Auto) 0.2, Absolute Neuts (auto) 7.6, Absolute Lymphs (auto) 1.06, Nucleated RBC % 0, Sodium 143, P otassium 3.1 L, Chloride 111 H, Carbon Dioxide 18.5 L, Anion Gap 13, BUN 16, Creatinine 0.83, Estim Creat Clear Calc 89.03, Est GFR (MDRD) Non-Af 102, BUN/Creatinine Ratio 19.6, Glucose 106 H, Calcium 9.5, Phosphorus 3.9 03/11/25 06:20: Phosphorus Cancelled, Magnesium 1.6, Total Bilirubin 0.73, AST 114 H, ALT 100 H, Alkaline Phosphatase 124, Total Protein 6.2, Albumin 3.2 L, Globulin 3.0, Albumin/Globulin Ratio 1.0 Micro: Microbiology 03/05/25 00:16 Blood Culture (Wb) - Anticubital Right Blood Culture - Final GNR lactose route aide 03/05/25 23:40 Blood Culture (Wb) - Anticubital Right Blood Culture - Final Klebsiella pneumoniae sp pneum 03/07/25 11:30 Stool Enteric Bacteriology - Final 03/05/25 00:20 Urine, Catheterized Urine Culture - Final Klebsiella pneumoniae sp pneum 03/05/25 23:30 Mucosa - Nose SARS-CoV-2, Influenza & RSV (PCR) - Final Physical Exam Narrative General: Alert, Oriented x3, Cooperative, No apparent distress HEENT: Atraumatic, PERRLA, EOMI, Normocephalic Oral: Moist Mucosa Neck: Supple, No JVD Lungs: Diminished, Normal air movement, No rhonchi, No wheeze, No rales Cardiovascular: Regular rate, Regular Rhythm, Normal S1, Normal S2, No murmurs Abdomen: Soft, Non Tender, Non-Distended, No Hepato-splenomegaly Extremities: No edema, Capillary Refill Less than 3 Seconds Skin: No rashes, No breakdown, left second toe breakdown Musculoskeletal: No Tenderness to Palpation of Joints or Extremities, right AKA Neurological: No focal neurological deficits, baseline tremor with diaphoresis Psych/Mental Status: Normal Affect, Appropriate Assessment & Plan Assessment/Plan (1) Bacteremia due to Gram-negative bacteria: (2) Sepsis: (3) UTI (urinary tract infection): PLAN: Plan #Sepsis due to UTI and gram negative bacteremia due to Klebsiella pneumonia * urnalysis showed evidence of UTI * blood cultures positive for Klebsiella pneumoniae * ID on board * on IV zosyn. * he has a pacemaker in place which appears to be bulging, and there is concern for infection.CT of the chest done did not show any evidence of fluid collection under the pacemaker, or any signs of infection. * per ID, ok for short course of cefdinir PO 300mg bid at discharge. 03/11/2025: Will discharge on p.o. antibiotics. Doing well from an infectious standpoint #Diarrhea * Patient having diarrhea. He states has been having diarrhea for over a year now. CT of the abdomen showed dilated loops of bowel concerning for ileus versus gastroenteritis with small bowel obstruction. In light of him having diarrhea I think it is more likely due to gastroenteritis * stool enteric bacteriology was negative. * on immodium. Diarrhea is resolving. #NANCY: * resolved. Cr is now 0.99. #Hypokalemia: Potassium 3.5 today. Resolved. #Elevated troponin: * Initial troponin was elevated but trended down to 103. This likely due to decreased clearance in light of impaired kidney function. * 2D echo showed EF of 40% with stage I diastolic dysfunction and moderate left ventricular systolic dysfunction as well as mildly dilated left ventricular cavity and normal ventricular thickness. * Cardiology on board. 03/11/2025: Troponins insignificant #Tremors with possible withdrawal: * patient complaining of tremors. thought to be due to gabapentin. * Dose was reduced; will hold until tremors resolved and then resume at a much lower dose. * tremors have improved. 03/11/2025: Started on phenobarb taper as he was agitated last night. This was interpreted as alcohol withdrawal on day 5 of admission last drink was the night before admission. He states that he gets aggravated and frustrated when he is in pain and is not getting his narcotics so there is a possibility of a minor alcohol induced issue with an opiate induced issues while #Stage I sacral decubitus ulcer: wound care on board. #Elevated liver enzymes: * these are chronically elevated, likely due to his history of chronic alcohol use disorder. * will monitor. Stable. #Benign essential hypertension: on metoprolol #CAD s/p CABG: on aspirin, lipitor and cilostazol #GERD: on PPI #heart failure: s/p pacemaker/ICD. #Peripheral neuropathy: gabapentin held due to tremors #Anxiety and depression; on welbutrin and zoloft. Gabapentin held due to impaired renal function #Iron deficiency anemia: stable. #Depression; on wellbutrin DVT: Xarelto Charges/Coding Visit Charges Inpatient E&M: 96207 Subs Hosp L2
[2025-03-11] MEDS: Tamsulosin HCl 0.4 MG Capsule PO (16:43)
[2025-03-11] MEDS: Rivaroxaban 20 MG Tablet PO (16:43)
[2025-03-12] VITALS (9 sets, daily range): BP systolic 147–169; BP diastolic 77–92; PULSE 88–97; RESP 18–20; TEMP 36.3–37.4; O2SAT 92–94; BMI 21.7
[2025-03-12] MEDS: Phenobarbital 32.4 MG Tablet 64.8 MG PO ×6 (01:24→22:21)
[2025-03-12 07:32] LABS: Absolute Lymphocyte Count 1.11 X10^3/uL (0.83-4.51); Basophil# 0.04 X10^3/uL; Basophil% 0.4 % (0-1); Eosinophil# 0.13 X10^3/uL; Eosinophils% 1.3 % (0-5); Hematocrit 30.9 % (40-54); Hemoglobin 11.1 g/dL (13.0-16.5); Lymphocyte # 1.11 X10^3/ul (0.83-4.51); Lymphocyte % 10.9 % (19-41); Mean Corp Hgb Conc 35.9 g/dL (32-36); Mean Corpuscular Hgb 32.3 pg (27.0-32.0); Mean Corpuscular Volume 89.8 fL (80-94); Mean Platelet Vol. 12.5 fl (6.2-12.0); Monocyte# 0.83 X10^3/uL; Monocyte% 8.1 % (0-10); NRBC Flagged by Analyzer 0 % (0-5); Neutrophil % 78.5 % (47-70); Platelet Count 170 K/mm3 (150-450); RBC Distribution Width CV 14.5 % (11.6-14.6); RBC Distribution Width SD 47.7 fl (35.1-43.9); Red Blood Count 3.44 M/mm3 (4.6-6.2); White Blood Count 10.2 K/mm3 (4.4-11.0)
[2025-03-12 07:53] LABS: ALB/GLOB Ratio 1.1 RATIO (0.9-2.4); AST(SGOT) 77 U/L (<=37); Alanine Aminotransfer ALT/SGPT 90 U/L (<=46); Albumin, Serum 3.1 g/dL (3.5-5.0); Alkaline Phosphatase 120 U/L (40-129); Anion Gap 14 (5-15); BUN 14 mg/dL (4-19); BUN/Creat Ratio 17.5 RATIO (10-20); Calcium,Total 9.3 mg/dL (7.6-11.0); Carbon Dioxide 19.2 mmol/L (21.0-32.0); Chloride 111 mmol/L (98-108); Creatinine, Serum 0.77 mg/dL (0.70-1.20); EST Glomerular Filtration Rate 104 (>60); Estimated Creatinine Clearance 97.31 ml/min (50-250); Globulin 2.9 g/dL (2.2-4.2); Glucose 99 mg/dL (70-99); Potassium 3.3 mmol/L (3.3-5.1); Sodium Level 144 mmol/L (133-145); Total Bilirubin 0.72 mg/dL (0.00-1.30)
[2025-03-12] MEDS: Aspirin E.C. 81 MG Tablet PO (08:31)
[2025-03-12] MEDS: Multivitamins,Ther W-Minerals Tablet 1 TABLET PO (08:31)
[2025-03-12] MEDS: Folic Acid 1 MG Tablet PO (08:31)
[2025-03-12] MEDS: Thiamine Hydrochloride 100 MG Tablet PO (08:32)
[2025-03-12] MEDS: hydrOXYzine PAM 25 MG Capsule 50 MG PO ×2 (09:34→16:10)
[2025-03-12] MEDS: oxyCODONE 5 MG Tablet 10 MG PO ×2 (09:34→16:10)
[2025-03-12] MEDS: Menthol/Lanolin/Calamine/Znox 113 GM Tube 1 APPLIC TOPICAL ×2 (12:16→22:21)
--- NOTE | 2025-03-12 12:17 | PN.HOSP_ITS ---
Subjective Subjective Symptoms little bit improved on the phenobarb, no issues last night. Objective Data Objective Data Vital Signs: Vital Signs Temp Pulse Resp BP Pulse Ox O2 Del Method O2 Flow Rate 97.7 F L 88 18 151/92 H 93 Room Air 2 03/12/25 10:55 03/12/25 10:55 03/12/25 10:55 03/12/25 10:55 03/12/25 10:55 03/12/25 10:55 03/07/25 17:00 FiO2 92 03/11/25 01:00 Oxygen Flow Rate (L/min) 2 Oxygen Delivery Method Room Air Weight: 143 lb 4.807 oz Body Mass Index (BMI) 21.7 Intake & Output: Intake and Output for Last 24 Hours 03/11/25 03/12/25 03/13/25 03:59 03:59 03:59 Intake Total 1110 / 1110 1550 / 1550 600 / 600 Output Total 1725 / 1725 1600 / 1600 600 / 600 Balance -615 / -615 -50 / -50 0 / 0 Lab / Micro Data 03/12/25 06:40 03/12/25 06:40 Labs: Laboratory Results - last 24 hr 03/12/25 06:40: WBC 10.2, RBC 3.44 L, Hgb 11.1 L, Hct 30.9 L, MCV 89.8, MCH 32.3 H, MCHC 35.9, RDW Std Deviation 47.7 H, RDW Coeff of Valeria 14.5, Plt Count 170, M PV 12.5 H, Immature Gran % (Auto) 0.800, Neut % (Auto) 78.5 H, Lymph % (Auto) 10.9 L, Crook % (Auto) 8.1, Eos % (Auto) 1.3, Baso % (Auto) 0.4, Absolute Neuts (auto) 8.0 H, Absolute Lymphs (auto) 1.11, Nucleated RBC % 0, Sodium 144, Potassium 3.3, Chloride 111 H, Carbon Dioxide 19.2 L, Anion Gap 14, BUN 14, Creatinine 0.77, Estim Creat Clear Calc 97.31, Est GFR (MDRD) Non-Af 104, BUN/Creatinine Ratio 17.5, Glucose 99, Calcium 9.3, Total Bilirubin 0.72, AST 77 H, ALT 90 H, Alkaline Phosphatase 120, Total Protein 6.0, Albumin 3.1 L, Globulin 2.9, Albumin/Globulin Ratio 1.1 Micro: Microbiology 03/05/25 00:16 Blood Culture (Wb) - Anticubital Right Blood Culture - Final GNR lactose ore mixer 03/05/25 23:40 Blood Culture (Wb) - Anticubital Right Blood Culture - Final Klebsiella pneumoniae sp pneum 03/07/25 11:30 Stool Enteric Bacteriology - Final 03/05/25 00:20 Urine, Catheterized Urine Culture - Final Klebsiella pneumoniae sp pneum 03/05/25 23:30 Mucosa - Nose SARS-CoV-2, Influenza & RSV (PCR) - Final Physical Exam Narrative General: Alert, Oriented x3, Cooperative, No apparent distress HEENT: Atraumatic, PERRLA, EOMI, Normocephalic Oral: Moist Mucosa Neck: Supple, No JVD Lungs: Diminished, Normal air movement, No rhonchi, No wheeze, No rales Cardiovascular: Regular rate, Regular Rhythm, Normal S1, Normal S2, No murmurs Abdomen: Soft, Non Tender, Non-Distended, No Hepato-splenomegaly Extremities: No edema, Capillary Refill Less than 3 Seconds Skin: No rashes, No breakdown, left second toe breakdown Musculoskeletal: No Tenderness to Palpation of Joints or Extremities, right AKA Neurological: No focal neurological deficits, baseline tremor with diaphoresis Psych/Mental Status: Normal Affect, Appropriate Assessment & Plan Assessment/Plan (1) Bacteremia due to Gram-negative bacteria: (2) Sepsis: (3) UTI (urinary tract infection): PLAN: Plan #Sepsis due to UTI and gram negative bacteremia due to Klebsiella pneumonia * urnalysis showed evidence of UTI * blood cultures positive for Klebsiella pneumoniae * ID on board * on IV zosyn. * he has a pacemaker in place which appears to be bulging, and there is concern for infection.CT of the chest done did not show any evidence of fluid collection under the pacemaker, or any signs of infection. * per ID, ok for short course of cefdinir PO 300mg bid at discharge. 03/11/2025: Will discharge on p.o. antibiotics. Doing well from an infectious standpoint #Diarrhea * Patient having diarrhea. He states has been having diarrhea for over a year now. CT of the abdomen showed dilated loops of bowel concerning for ileus versus gastroenteritis with small bowel obstruction. In light of him having diarrhea I think it is more likely due to gastroenteritis * stool enteric bacteriology was negative. * on immodium. Diarrhea is resolving. #NANCY: * resolved. Cr is now 0.99. #Hypokalemia: Potassium 3.5 today. Resolved. #Elevated troponin: * Initial troponin was elevated but trended down to 103. This likely due to decreased clearance in light of impaired kidney function. * 2D echo showed EF of 40% with stage I diastolic dysfunction and moderate left ventricular systolic dysfunction as well as mildly dilated left ventricular cavity and normal ventricular thickness. * Cardiology on board. 03/11/2025: Troponins insignificant #Tremors with possible withdrawal: * patient complaining of tremors. thought to be due to gabapentin. * Dose was reduced; will hold until tremors resolved and then resume at a much lower dose. * tremors have improved. 03/11/2025: Started on phenobarb taper as he was agitated last night. This was interpreted as alcohol withdrawal on day 5 of admission last drink was the night before admission. He states that he gets aggravated and frustrated when he is in pain and is not getting his narcotics so there is a possibility of a minor alcohol induced issue with an opiate induced issues while 03/12/2025: Will continue with phenobarbital for another 24 hours as well as his narcotics. He has been accepted to SNF, will plan for probable discharge tomorrow #Stage I sacral decubitus ulcer: wound care on board. #Elevated liver enzymes: * these are chronically elevated, likely due to his history of chronic alcohol use disorder. * will monitor. Stable. #Benign essential hypertension: on metoprolol #CAD s/p CABG: on aspirin, lipitor and cilostazol #GERD: on PPI #heart failure: s/p pacemaker/ICD. #Peripheral neuropathy: gabapentin held due to tremors #Anxiety and depression; on welbutrin and zoloft. Gabapentin held due to impaired renal function #Iron deficiency anemia: stable. #Depression; on wellbutrin DVT: Xarelto Charges/Coding Visit Charges Inpatient E&M: 14743 Subs Hosp L2
[2025-03-12] MEDS: buPROPion (SR) 150 MG Tablet.SA PO (12:20)
[2025-03-12] MEDS: Pantoprazole Sodium 40 MG Tablet PO (12:20)
[2025-03-12] MEDS: Sertraline 50 MG Tablet PO (12:20)
[2025-03-12] MEDS: Colestipol 1 GM TABLET PO (12:20)
[2025-03-12] MEDS: Metoprolol(XL)Succ 25 MG Tablet PO (12:20)
[2025-03-12] MEDS: Cilostazol 50 MG Tablet PO ×2 (12:20→22:22)
[2025-03-12] MEDS: Ceftriaxone 2 GM in 0.9% Normal Saline (50mL MB+) 50 ML IV (12:28)
[2025-03-12] MEDS: Ferrous Gluconate 324 MG Tablet PO ×2 (12:43→12:51)
[2025-03-12] MEDS: Rivaroxaban 20 MG Tablet PO ×2 (16:13)
[2025-03-12] MEDS: Tamsulosin HCl 0.4 MG Capsule PO (16:15)
[2025-03-12] MEDS: traZODone 100 MG Tablet PO (23:58)
[2025-03-13 01:45] VITALS: BP 113/61; PULSE 80; RESP 16; TEMP 36.6; O2SAT 93
[2025-03-13] MEDS: Phenobarbital 32.4 MG Tablet 64.8 MG PO ×3 (02:00→12:10)
[2025-03-13 05:51] LABS: Bedside Glucose 93 mg/dL (74-106)
--- NOTE | 2025-03-13 05:52 | NURSING ---
This RN attempted to perform pt CIWA check, Vital check, and administer Phenobarbital to patient this morning. Patient would wake up and answer with Go Away, Im not doing that, and I don't want to. This was a mentation change for the patient over night. I got the top taper machine Rosaura to assess the pt and their change in mentation and when we tried to explain to the patient the importance of the for Phenobarbital the pt became aggravated and Im gonna knock you out. We left the room and this RN notified the MD.
[2025-03-13 05:57] VITALS: BMI 21.3
[2025-03-13 07:49] VITALS: BP 150/81; PULSE 78; RESP 18; TEMP 36.7; O2SAT 90
[2025-03-13] MEDS: Multivitamins,Ther W-Minerals Tablet 1 TABLET PO (07:57)
[2025-03-13] MEDS: hydrOXYzine PAM 25 MG Capsule 50 MG PO (07:57)
[2025-03-13] MEDS: oxyCODONE 5 MG Tablet 10 MG PO (07:57)
[2025-03-13] MEDS: Thiamine Hydrochloride 100 MG Tablet PO (07:58)
[2025-03-13] MEDS: Menthol/Lanolin/Calamine/Znox 113 GM Tube 1 APPLIC TOPICAL (07:58)
[2025-03-13] MEDS: Aspirin E.C. 81 MG Tablet PO (07:58)
[2025-03-13] MEDS: Folic Acid 1 MG Tablet PO (07:58)
[2025-03-13] MEDS: Ceftriaxone 2 GM in 0.9% Normal Saline (50mL MB+) 50 ML IV (11:18)
[2025-03-13] MEDS: 0.9% Saline Lock 10 ML Syringe IV (11:19)
--- NOTE | 2025-03-13 11:57 | TREXTCAR_ITS ---
Diet Diet Order/Speech Therapy: INPATIENT Hospital Diet / Speech Therapy Order(s) 03/06/25 04:02 Diet: Cardiac - Heart Healthy Food consistency:: Regular Liquid Consistency:: Regular/Thin Type of Dietary Supplement:: Ensure Plus High Protein Diet Comments: 120mL chocolate EPHP w/meals; patel BID with breakfast and di nner Routine Orders/Code Status Routine Lab Work: CBC and BMP Code Status: DNRCC-A DC O2, CPAP, BIPAP needs Home O2 Discharge instructions: No Wound(s) L 2nd toe: Wound Type: dry thin eschar l lu: Wound Type: small scab lt buttocks/ hip: Wound Type: Pressure Injury left hip: Wound Type: Pressure Injury sacrum/buttocks: Wound Type: Pressure Injury Dressing Change: foam dressing in place left heel: Wound Type: Pressure Injury Therapies Physical Therapy: Eval and Treat Occupational Therapy: Eval and Treat Problem/Diagnosis (1) Bacteremia due to Gram-negative bacteria: Status: Acute Code(s): R78.81 - Bacteremia (2) Sepsis: Status: Acute Code(s): A41.9 - Sepsis, unspecified organism (3) UTI (urinary tract infection): Status: Acute Code(s): N39.0 - Urinary tract infection, site not specified Plan #Sepsis due to UTI and gram negative bacteremia due to Klebsiella pneumonia * urnalysis showed evidence of UTI * blood cultures positive for Klebsiella pneumoniae * ID on board * on IV zosyn. * he has a pacemaker in place which appears to be bulging, and there is concern for infection.CT of the chest done did not show any evidence of fluid margaret ection under the pacemaker, or any signs of infection. * per ID, ok for short course of cefdinir PO 300mg bid at discharge. 03/11/2025: Will discharge on p.o. antibiotics. Doing well from an infectious standpoint #Diarrhea * Patient having diarrhea. He states has been having diarrhea for over a year now. CT of the abdomen showed dilated loops of bowel concerning for ileus versus gastroenteritis with small bowel obstruction. In light of him having diarrhea I think it is more likely due to gastroenteritis * stool enteric bacteriology was negative. * on immodium. Diarrhea is resolving. #NANCY: * resolved. Cr is now 0.99. #Hypokalemia: Potassium 3.5 today. Resolved. #Elevated troponin: * Initial troponin was elevated but trended down to 103. This likely due to decreased clearance in light of impaired kidney function. * 2D echo showed EF of 40% with stage I diastolic dysfunction and moderate left ventricular systolic dysfunction as well as mildly dilated left ventricular cavity and normal ventricular thickness. * Cardiology on board. 03/11/2025: Troponins insignificant #Tremors with possible withdrawal: * patient complaining of tremors. thought to be due to gabapentin. * Dose was reduced; will hold until tremors resolved and then resume at a much lower dose. * tremors have improved. 03/11/2025: Started on phenobarb taper as he was agitated last night. This was interpreted as alcohol withdrawal on day 5 of admission last drink was the night before admission. He states that he gets aggravated and frustrated when he is in pain and is not getting his narcotics so there is a possibility of a minor alcohol induced issue with an opiate induced issues while 03/12/2025: Will continue with phenobarbital for another 24 hours as well as his narcotics. He has been accepted to SNF, will plan for probable discharge tomorrow #Stage I sacral decubitus ulcer: wound care on board. #Elevated liver enzymes: * these are chronically elevated, likely due to his history of chronic alcohol use disorder. * will monitor. Stable. #Benign essential hypertension: on metoprolol #CAD s/p CABG: on aspirin, lipitor and cilostazol #GERD: on PPI #heart failure: s/p pacemaker/ICD. #Peripheral neuropathy: gabapentin held due to tremors #Anxiety and depression; on welbutrin and zoloft. Gabapentin held due to impaired renal function #Iron deficiency anemia: stable. #Depression; on wellbutrin DVT: Xarelto Allergies/Procedures Done in Hospital Allergies shellfish derived Allergy (Severe, Verified 03/05/25 23:23) Swelling lorazepam (From Ativan) Allergy (Verified 03/05/25 23:23) NEEDS FOLLOW-UP Procedures: 2-D Echocardiogram Type of Care/Length of Stay Estimated LOS: Convalescent Care Less Than 30 days Type of Care Needed: Skilled Rehab Potential: Fair Prognosis: Fair Additional Orders/Day of Discharge Day of Discharge: 03/13/25 Dietary and Speech Recommendations Dietitian Recommendations/Changes: Continue Cardiac diet to manage medical conditions. Continue 120mL chocolate ensure plus high protein TID with meals Will order patel BID with breakfast and dinner to promote wound healing. Discharge Plan Admission Admit Date/Time: 03/06/25 03:43 Attending Provider: Candido Saba Primary Care Provider: Bud Dave Consulting Providers: Candido Saba; Rico Cortez; Shai Barajas; Beth Mills; Leonor Adkins Discharge Orders/Prescriptions Prescriptions: New tamsulosin 0.4 mg Capsule 0.4 mg PO DAILY@1730 Qty: 0 0RF cefdinir 300 mg capsule 300 mg PO BID 3 Days Qty: 6 0RF Continued atorvastatin 80 mg tablet 80 mg PO DAILY bupropion HCl 150 mg tablet sustained-release 12 hr 150 mg PO DAILY aspirin [Adult Aspirin Regimen] 81 mg tablet,delayed release (DR/EC) 81 mg PO DAILY ferrous gluconate 324 mg (38 mg iron) tablet 324 mg PO DAILY Patient Comments: 1 TABLET ORALLY DAILY WITH WATER OR JUICE BETWEEN MEALS sertraline 50 mg tablet 50 mg PO DAILY gabapentin 600 mg tablet 600 mg PO TID Patient Comments: TAKE 1 TABLET BY MOUTH THREE TIMES A DAY cilostazol 50 mg tablet 50 mg PO BID Patient Comments: TAKE 1 TABLET BY MOUTH TWICE A DAY omeprazole 40 mg capsule,delayed release(DR/EC) 40 mg PO DAILY Patient Comments: TAKE 1 CAPSULE BY MOUTH EVERY DAY temazepam 15 mg capsule 5 mg PO .hs Patient Comments: 1 CAPSULE BY MOUTH DAILY AT BEDTIME NEEDED multivitamin [Daily Multi-Vitamin] Tablet 1 tab PO DAILY potassium chloride 20 mEq tablet extended release 20 meq PO DAILY Xarelto 20 mg tablet 20 mg PO DAILY oxycodone 10 mg tablet 10 mg PO TID PRN (Reason: severe pain (scale score 7-10)) 3 Days Qty: 14 0RF furosemide 40 mg tablet 40 mg PO QDAY PRN (Reason: edema) metoprolol succinate 25 mg tablet extended release 24 hr 25 mg PO QDAY Qty: 90 3RF colestipol 1 gram tablet 1 g PO QDAY Qty: 30 1RF Discontinued omeprazole 40 mg capsule,delayed release(DR/EC) 40 mg PO DAILY Referrals / Follow Up: Bud Dave DO [Primary Care Provider] - Disposition Disposition (needs filled in before D/C Order can be placed): [facility]
[2025-03-13 12:04] VITALS: BP 124/53; PULSE 85; RESP 18; TEMP 36.8; O2SAT 94
[2025-03-13] MEDS: Acetaminophen 325 MG Tablet 650 MG PO (12:10)
[2025-03-13] MEDS: Colestipol 1 GM TABLET PO (12:11)
[2025-03-13] MEDS: Cilostazol 50 MG Tablet PO (12:11)
[2025-03-13 12:12] VITALS: PULSE 85
[2025-03-13] MEDS: Pantoprazole Sodium 40 MG Tablet PO (12:12)
[2025-03-13] MEDS: Metoprolol(XL)Succ 25 MG Tablet PO (12:12)
[2025-03-13] MEDS: Sertraline 50 MG Tablet PO (12:13)
[2025-03-13] MEDS: buPROPion (SR) 150 MG Tablet.SA PO (12:14)
--- NOTE | 2025-03-13 13:15 | DS.PCM_ITS ---
Providers Date of Admission: 03/06/25 Primary Care Physician: Dr. Bud Dave DO Consultations 03/06/25 08:17 Consult: Nephrology Routine Consulting Provider: Beth Mills Reason for Consult: severe NANCY EMERGENT Consult: No Notified: Yes Date Notified: 03/06/25 Time Notified: 08:56 Method of Notification: Answering Service 03/07/25 05:27 Consult: Onc/Wound/sexual health physician Routine Comment: Reason for Consult:: lt buttocks/ hip-possible pressure ulcer 03/07/25 07:35 Consult: Infectious Disease Routine Consulting Provider: Shai Barajas Reason for Consult: gram negative bacteremia EMERGENT Consult: No Notified: Yes Date Notified: 03/07/25 Time Notified: 08:10 Method of Notification: Text Reason For Visit: SEPSIS Diagnosis Discharge Diagnosis (1) Bacteremia due to Gram-negative bacteria: Status: Acute Code(s): R78.81 - Bacteremia (2) Sepsis: Status: Acute Code(s): A41.9 - Sepsis, unspecified organism (3) UTI (urinary tract infection): Status: Acute Code(s): N39.0 - Urinary tract infection, site not specified Medications at Discharge Home Medications aspirin 81 mg tablet,delayed release (Adult Aspirin Regimen) 81 mg PO DAILY 02/22/20 atorvastatin 80 mg tablet 80 mg PO DAILY 02/22/20 bupropion HCl 150 mg tablet,12 hr sustained-release 150 mg PO DAILY 02/22/20 sertraline 50 mg tablet 50 mg PO DAILY 08/08/22 cilostazol 50 mg tablet 50 mg PO BID 04/07/23 gabapentin 600 mg tablet 600 mg PO TID 04/07/23 omeprazole 40 mg capsule,delayed release 40 mg PO DAILY 04/07/23 ferrous gluconate 324 mg (38 mg iron) tablet 324 mg PO DAILY anemia 06/08/24 furosemide 40 mg tablet 40 mg PO QDAY PRN edema 06/09/24 metoprolol succinate 25 mg tablet,extended release 24 hr 25 mg PO QDAY #90 tabs 10/25/24 temazepam 15 mg capsule 5 mg PO .hs SLEEP 01/27/25 colestipol 1 gram tablet 1 g PO QDAY #30 tabs 02/01/25 multivitamin (Daily Multi-Vitamin tablet) 1 tab PO DAILY 03/05/25 potassium chloride 20 mEq tablet,extended release 20 meq PO DAILY 03/05/25 rivaroxaban 20 mg tablet (Xarelto) 20 mg PO DAILY blood thinner 03/06/25 cefdinir 300 mg capsule 300 mg PO BID 3 days #6 caps 03/13/25 oxycodone 10 mg tablet 10 mg PO TID PRN severe pain (scale score 7-10) 3 days #14 tabs 03/13/25 tamsulosin 0.4 mg capsule 0.4 mg PO DAILY@1730 #0 caps 03/13/25 Hospital Course Operations None Procedures 2-D Echocardiogram Summary of Care Provided Minutes Spent on Discharge: 35 Hospital Course: Per HPI: MYRIAM LISA, is a 59 M who presents to the hospital with fevers and chills as well as rigors. He states that symptoms started 3 days ago. 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 In the ER he was found to be septic with a lactic acid of 2.5 and creatinine of 4.97, his baseline is 0.7. CT of his abdomen pelvis is unremarkable, there is the possibility of a small consolidation in in his left lung however I think the source of his infection is his urine which is grossly contaminated with 500 leukocyte esterase as well as greater than 100 white blood cells and 4+ urine bacteria. He received a dose of vancomycin and Zosyn in the emergency room, blood cultures and urine cultures are pending. Hospital Course: #Sepsis due to UTI and gram negative bacteremia due to Klebsiella pneumonia * urnalysis showed evidence of UTI * blood cultures positive for Klebsiella pneumoniae * ID on board * on IV zosyn. * he has a pacemaker in place which appears to be bulging, and there is concern for infection.CT of the chest done did not show any evidence of fluid collection under the pacemaker, or any signs of infection. * per ID, ok for short course of cefdinir PO 300mg bid at discharge.03/11/2025: Will discharge on p.o. antibiotics. Doing well from an infectious standpoint 03/13/2025: I discussed with him and his the plan for discharge did express understanding of the risk benefits of one of the [facility] he would like to go today. The thinks that a lot of his symptoms at night are due to his restlessness of being in the same environment and she would like to see how he does at the [facility]. Will continue with 3 more days of cefdinir to complete course. #Diarrhea * Patient having diarrhea. He states has been having diarrhea for over a year now. CT of the abdomen showed dilated loops of bowel concerning for ileus versus gastroenteritis with small bowel obstruction. In light of him having diarrhea I think it is more likely due to gastroenteritis * stool enteric bacteriology was negative. * on immodium. Diarrhea is resolving. #NANCY: * resolved. Cr is now 0.99. #Hypokalemia: Resolved. #Elevated troponin: * Initial troponin was elevated but trended down to 103. This likely due to decreased clearance in light of impaired kidney function. * 2D echo showed EF of 40% with stage I diastolic dysfunction and moderate left ventricular systolic dysfunction as well as mildly dilated left ventricular cavity and normal ventricular thickness. * Cardiology on board.03/11/2025: Troponins insignificant #Tremors with possible withdrawal: * patient complaining of tremors. thought to be due to gabapentin. * Dose was reduced; will hold until tremors resolved and then resume at a much lower dose. * tremors have improved.03/11/2025: Started on phenobarb taper as he was agitated last night. This was interpreted as alcohol withdrawal on day 5 of admission last drink was the night before admission. He states that he gets aggravated and frustrated when he is in pain and is not getting his narcotics so there is a possibility of a minor alcohol induced issue with an opiate induced issues while 03/12/2025: Will continue with phenobarbital for another 24 hours as well as his narcotics. He has been accepted to SNF, will plan for probable discharge tomorrow 03/13/2025: He has chronic tremors that have been going on for quite a while prior to admission therefore I do think that his CIWA scores have been a little bit falsely elevated because of this. Also that he has been off of his gabapentin and then on a reduced dose because of his NANCY, this can be restarted on discharge at his full dose 600 mg p.o. 3 times daily #Stage I sacral decubitus ulcer: wound care on board. #Elevated liver enzymes: * these are chronically elevated, likely due to his history of chronic alcohol use disorder. * will monitor. Stable. Will continue to monitor as an outpatient #Benign essential hypertension: on metoprolol #CAD s/p CABG: on aspirin, lipitor and cilostazol. Will continue with his Xarelto for his peripheral artery disease as he is status post BKA on the right #GERD: on PPI #heart failure: s/p pacemaker/ICD. #Peripheral neuropathy: gabapentin held due to tremors #Anxiety and depression; on welbutrin and zoloft. Gabapentin held due to impaired renal function, can resume on discharge #Iron deficiency anemia: stable. #Depression; on wellbutrin Physical Exam Narrative General: Alert, Oriented x3, Cooperative, No apparent distress HEENT: Atraumatic, PERRLA, EOMI, Normocephalic Oral: Moist Mucosa Neck: Supple, No JVD Lungs: Diminished, Normal air movement, No rhonchi, No wheeze, No rales Cardiovascular: Regular rate, Regular Rhythm, Normal S1, Normal S2, No murmurs Abdomen: Soft, Non Tender, Non-Distended, No Hepato-splenomegaly Extremities: No edema, Capillary Refill Less than 3 Seconds Skin: No rashes, No breakdown, left second toe breakdown Musculoskeletal: No Tenderness to Palpation of Joints or Extremities, right BKA Neurological: No focal neurological deficits, baseline tremor with diaphoresis Psych/Mental Status: Flat Weight / BMI Weight Weight: 140 lb 3.424 oz Body Mass Index (BMI) 21.3 ABG / Lab / Microbiology Data 03/12/25 06:40 03/12/25 06:40 Laboratory: Laboratory Results - last 24 hr 03/13/25 05:32: POC Glucose 93 Microbiology: Microbiology 03/05/25 00:16 Blood Culture (Wb) - Anticubital Right Blood Culture - Final GNR lactose international trade analyst 03/05/25 23:40 Blood Culture (Wb) - Anticubital Right Blood Culture - Final Klebsiella pneumoniae sp pneum 03/07/25 11:30 Stool Enteric Bacteriology - Final 03/05/25 00:20 Urine, Catheterized Urine Culture - Final Klebsiella pneumoniae sp pneum 03/05/25 23:30 Mucosa - Nose SARS-CoV-2, Influenza & RSV (PCR) - Final D/C Instructions DC O2, CPAP, BIPAP Needs Home O2 Discharge instructions: No Meaningful Use Info Meaningful Use Meaningful Use Diagnoses (Choose all that apply): None applicable Ischemic Stroke Statin Dosing Therapy Reference: STATIN DOSE THERAPY REFERENCE: * Patients > 75 years receive moderate or high dose statin therapy. * Patients 75 years or YOUNGER should receive HIGH intensity statin dose unless contraindicated. You will be required to document reason for non-treatment if statin daily dose does not meet guidelines. HIGH DOSE STATIN THERAPY DAILY Atorvastatin > than or = to 40 mg Rosuvastatin > than or = to 20 mg Amlodipine + Atorvastatin > than or = to 2.5/40 mg Ezetimibe + Simvastatin 10/80 mg Simvastatin 80mg Discharge Plan Admission Admit Date/Time: 03/06/25 03:43 Attending Provider: Candido Saba Primary Care Provider: Bud Dave Consulting Providers: Candido Saba; Rico Cortez; Shai Barajas; Beth Mills; Leonor Adkins Discharge Orders/Prescriptions Prescriptions: New tamsulosin 0.4 mg Capsule 0.4 mg PO DAILY@1730 Qty: 0 0RF cefdinir 300 mg capsule 300 mg PO BID 3 Days Qty: 6 0RF Continued atorvastatin 80 mg tablet 80 mg PO DAILY bupropion HCl 150 mg tablet sustained-release 12 hr 150 mg PO DAILY aspirin [Adult Aspirin Regimen] 81 mg tablet,delayed release (DR/EC) 81 mg PO DAILY ferrous gluconate 324 mg (38 mg iron) tablet 324 mg PO DAILY Patient Comments: 1 TABLET ORALLY DAILY WITH WATER OR JUICE BETWEEN MEALS sertraline 50 mg tablet 50 mg PO DAILY gabapentin 600 mg tablet 600 mg PO TID Patient Comments: TAKE 1 TABLET BY MOUTH THREE TIMES A DAY cilostazol 50 mg tablet 50 mg PO BID Patient Comments: TAKE 1 TABLET BY MOUTH TWICE A DAY omeprazole 40 mg capsule,delayed release(DR/EC) 40 mg PO DAILY Patient Comments: TAKE 1 CAPSULE BY MOUTH EVERY DAY temazepam 15 mg capsule 5 mg PO .hs Patient Comments: 1 CAPSULE BY MOUTH DAILY AT BEDTIME NEEDED multivitamin [Daily Multi-Vitamin] Tablet 1 tab PO DAILY potassium chloride 20 mEq tablet extended release 20 meq PO DAILY Xarelto 20 mg tablet 20 mg PO DAILY oxycodone 10 mg tablet 10 mg PO TID PRN (Reason: severe pain (scale score 7-10)) 3 Days Qty: 14 0RF furosemide 40 mg tablet 40 mg PO QDAY PRN (Reason: edema) metoprolol succinate 25 mg tablet extended release 24 hr 25 mg PO QDAY Qty: 90 3RF colestipol 1 gram tablet 1 g PO QDAY Qty: 30 1RF Discontinued omeprazole 40 mg capsule,delayed release(DR/EC) 40 mg PO DAILY Referrals / Follow Up: Bud Dave DO [Primary Care Provider] - Disposition Disposition (needs filled in before D/C Order can be placed): [facility] Charges/Coding Visit Charges Inpatient E&M: 12540 Disch Hosp >30min
== END 2025-03-13 13:54 | disposition skilled nursing facility (03) | DRG 872 ==
LOC: ED 03-06 03:11 → PCU 03-06 03:18 → ICU 03-06 15:25 → PCU 03-10 05:04
PROVIDERS: Family Medicine; Hospitalist; Student in an Organized Health Care Education/Training Program; Admitting Provider Family Medicine; Emergency Provider Emergency Medicine; PCP Family Medicine; Visit Provider Family Medicine
DX: A41.50 Gram-negative sepsis, unspecified (principal); E87.20 Acidosis, unspecified; I50.32 Chronic diastolic (congestive) heart failure; N17.9 Acute kidney failure, unspecified; N39.0 Urinary tract infection, site not specified; I11.0 Hypertensive heart disease with heart failure; I25.5 Ischemic cardiomyopathy; L89.301 Pressure ulcer of unspecified buttock, stage 1; L89.151 Pressure ulcer of sacral region, stage 1; I73.9 Peripheral vascular disease, unspecified; D50.9 Iron deficiency anemia, unspecified; F32.A Depression, unspecified; Z89.511 Acquired absence of right leg below knee; I25.10 Atherosclerotic heart disease of native coronary artery without angina pectoris; G62.9 Polyneuropathy, unspecified; K21.9 Gastro-esophageal reflux disease without esophagitis; E78.5 Hyperlipidemia, unspecified; E87.6 Hypokalemia; K52.9 Noninfective gastroenteritis and colitis, unspecified; R74.01 Elevation of levels of liver transaminase levels; Z95.0 Presence of cardiac pacemaker; N32.89 Other specified disorders of bladder; Z86.718 Personal history of other venous thrombosis and embolism; Z79.82 Long term (current) use of aspirin; Z95.5 Presence of coronary angioplasty implant and graft
CPT/HCPCS: 36415; 36600; 51702; 70450; 71046; 71250; 73630; 74176; 76770; 80048; 80053; 80076; 81001; 82077; 82140; 82570; 82803; 82962; 83605; 83735; 83880; 84100; 84300; 84484; 85025; 85027; 85610; 85730; 87040; 87077; 87086; 87088; 87177; 87186; 87209; 87506; 87631; 93005; 93306; 94762; 97162; 97166; 97530; 97535; 99285; A4216; J0696